=== PATIENT | female | born 1940 | race Caucasian/White ===

== ENCOUNTER → 2016-04-20 | Outpatient (CLI) | payer OTHER, MEDICARE ==
[~2016-04-20] MED LIST: ALPR0.25 PO; ASPCH81X PO; ATEN50TA8 PO; ATOR-22 PO; CALC0.2510 PO; EFF75 PO; GABA800T PO; TRAZ50TA35 PO
[2016-04-20 12:05] LABS: BASO % 0.2 %; BASO ABS # 0.01 K/uL (0-0.2); COMPLETE YES; EOS % 2.9 %; HEMATOCRIT 38.2 % (37-47); IG% 0.2 %; LYMPH % 32.4 %; LYMPH ABS # 1.34 K/uL (1.2-3.4); MEAN CORPUSCULAR HEMOGLOBIN 31.1 pg (25-34); MEAN CORPUSCULAR HGB CONC 33.8 g/dl (32-36); MEAN PLATELET VOLUME 12.6 fL (7.4-10.4); MONO % 12.6 %; NEUT % 51.7 %; PLATELET COUNT 155 K/uL (130-400); RED BLOOD COUNT 4.15 M/uL (4.2-5.4); WHITE BLOOD COUNT 4.14 K/uL (4.8-10.8)
[2016-04-20 12:14] LABS: ALT/SGPT 18 U/L (12-78); BLOOD UREA NITROGEN 13 mg/dl (7-18); BUN/CREATININE RATIO 9.6 (10-20); CARBON DIOXIDE 27 mmol/L (21-32); CHLORIDE 106 mmol/L (98-107); CHOLESTEROL 161 mg/dl (0-200); GLUCOSE 100 mg/dl (70-99); POTASSIUM 3.8 mmol/L (3.5-5.1); SODIUM 142 mmol/L (136-145); TRIGLYCERIDES 99 mg/dl (0-150); VERY LOW DENSITY LIPOPROT CALC 20 mg/dl
[2016-04-20 12:24] LABS: ALB/GLOB RATIO 1.2 (0.9-2); ALKALINE PHOSPHATASE 56 U/L (45-117); AST/SGOT 18 U/L (15-37); CHOLESTEROL/HDL RATIO 2.4; HDL CHOLESTEROL 66 mg/dl; LDL CHOLESTEROL CALCULATED 75 mg/dl; THYROID STIMULATING HORMONE 0.886 uIu/ml (0.300-4.500)
[2016-04-20 12:48] LABS: ESTIMATED AVERAGE GLUCOSE 111 mg/dl; HA1C FLAG Normal (Normal)
--- NOTE | 2016-04-24 10:21 | CODING QUERY MEDICAL NECESSITY ---
SUPPORTING DIAGNOSIS NEEDED Dr. Bustillos, A supporting diagnosis is required for the test/procedure performed on this patient in order for us to be reimbursed by the patient's insurance. Please provide a supporting diagnosis for the following test/procedure listed below next to the test name along with your signature. *If there is no additional diagnosis for this patient that would support the following test/procedure please document that below next to the test/procedure. Test(s)/Procedure(s) that require a supporting diagnosis: * ([id number]) VITAMIN D ASSAY DIAGNOSIS: * [id number] GLYCATED HEMOGLOBIN DIAGNOSIS: DATE OF SERVICE: 04/20/16 Provider Signature: Date: Thank you Vasile Metzger Health Information Management Once completed, please kindly fax back to [phone] For questions please call [phone]
== END | disposition home or self-care (01) ==
LOC: C.LABPBG 09:08
PROVIDERS: ATTEND Internal Medicine
DX: D69.6 Thrombocytopenia, unspecified (principal)

== ENCOUNTER → 2016-05-02 | Outpatient (CLI) | payer OTHER, MEDICARE | END | disposition home or self-care (01) | LOC: C.LABSPEC 15:28 | PROVIDERS: ATTEND Obstetrics & Gynecology | DX: N94.9 Unspecified condition associated with female genital organs and menstrual cycle (principal) ==

== ENCOUNTER → 2016-05-08 | Outpatient (CLI) | payer OTHER, MEDICARE | END | disposition home or self-care (01) | LOC: C.MAMM 11:08 | PROVIDERS: ATTEND Internal Medicine | DX: M85.89 Other specified disorders of bone density and structure, multiple sites (principal) ==

== ENCOUNTER → 2016-07-31 | Outpatient (CLI) | payer OTHER, MEDICARE | END | disposition home or self-care (01) | LOC: C.LAB 11:00 | PROVIDERS: ATTEND Physician Assistant Medical | DX: R19.7 Diarrhea, unspecified (principal) ==

== ENCOUNTER → 2016-10-23 | Outpatient (CLI) | payer OTHER, MEDICARE ==
[2016-10-23 13:12] LABS: BASO % 0.2 %; BASO ABS # 0.01 K/uL (0-0.2); COMPLETE YES; EOS % 6.3 %; HEMATOCRIT 39.8 % (37-47); IG% 0.2 %; LYMPH % 23.7 %; LYMPH ABS # 1.06 K/uL (1.2-3.4); MEAN CELL VOLUME 97.8 fL (80-100); MEAN CORPUSCULAR HEMOGLOBIN 30.7 pg (25-34); MEAN CORPUSCULAR HGB CONC 31.4 g/dl (32-36); MEAN PLATELET VOLUME 11.9 fL (7.4-10.4); MONO % 8.7 %; NEUT % 60.9 %; PLATELET COUNT 161 K/uL (130-400); RED BLOOD COUNT 4.07 M/uL (4.2-5.4); WHITE BLOOD COUNT 4.47 K/uL (4.8-10.8)
[2016-10-23 13:30] LABS: ALT/SGPT 33 U/L (12-78); AST/SGOT 22 U/L (15-37); BLOOD UREA NITROGEN 17 mg/dl (7-18); CALCIUM 9.3 mg/dl (8.5-10.1); CARBON DIOXIDE 29 mmol/L (21-32); CHLORIDE 108 mmol/L (98-107); GLUCOSE 89 mg/dl (70-99); POTASSIUM 4.1 mmol/L (3.5-5.1); SODIUM 141 mmol/L (136-145)
[2016-10-23 13:38] LABS: ESTIMATED AVERAGE GLUCOSE 111 mg/dl; HA1C FLAG Normal (Normal)
[2016-10-23 13:41] LABS: ALB/GLOB RATIO 1.1 (0.9-2); ALKALINE PHOSPHATASE 63 U/L (45-117); CHOLESTEROL 192 mg/dl (0-200); CHOLESTEROL/HDL RATIO 3.1; HDL CHOLESTEROL 62 mg/dl; LDL CHOLESTEROL CALCULATED 108 mg/dl; TRIGLYCERIDES 109 mg/dl (0-150); VERY LOW DENSITY LIPOPROT CALC 22 mg/dl
--- NOTE | 2016-11-02 17:30 | CODING QUERY MEDICAL NECESSITY ---
SUPPORTING DIAGNOSIS NEEDED A supporting diagnosis is required for the test/procedure performed on this patient in order for us to be reimbursed by the patient's insurance. Please provide a supporting diagnosis for the following test/procedure listed below next to the test name along with your signature. *If there is no additional diagnosis for this patient that would support the following test/procedure please document that below next to the test/procedure. Test(s)/Procedure(s) that require a supporting diagnosis: * VITAMIN D, 25- HYDROXY DIAGNOSIS: * HEMOGLOBIN A1C DIAGNOSIS: Provider Signature: Date: Thank you Simona Ma [facility] Information Management Once completed, please kindly fax back to [phone] For questions please call [phone]
== END | disposition home or self-care (01) ==
LOC: C.LABPBG 08:34
PROVIDERS: ATTEND Internal Medicine
DX: D69.6 Thrombocytopenia, unspecified (principal); M85.80 Other specified disorders of bone density and structure, unspecified site; R73.01 Impaired fasting glucose

== ENCOUNTER → 2016-11-07 | Outpatient (CLI) | payer OTHER, MEDICARE ==
--- NOTE | 2016-11-07 12:05 | DIAGNOSTIC IMAGING REPORT ---
LUMBAR SPINE W/O CONTRAST CLINICAL HISTORY: 76 years-old Female with R20.2 Leg [id number]. Chronic low back pain and left lower extremity weakness. No trauma. COMPARISON: CT abdomen and pelvis 12/29/2014 TECHNIQUE: Multiplanar, multi sequence MRI of the lumbar spine was performed without intravenous contrast. FINDINGS: The large edzxf-um-sudj cheese weigher images demonstrate no gross appear mildly. There is convex right curvature of the mid lumbar spine of approximately 8 degrees. Signal in the cord is within normal limits. Conus medullaris terminates at L1. The axial images are moderately motion degraded. There is no focal bone marrow edema, fracture or marrow replacing process identified. There is mild intervertebral disc space narrowing with posterior disc bulging and facet arthropathy at the T9-T10, T10-T11 and T11-T12 levels without high-grade central canal or foraminal narrowing. T12-L1: No central canal or neural foraminal stenosis. L1-L2: Mild intervertebral disc space narrowing and facet arthropathy with broad-based posterior disc bulge. No central canal or foraminal narrowing. L2-L3: Mild to moderate intervertebral disc space narrowing with mild facet arthropathy and ligamentum flavum redundancy. Broad-based posterior disc bulge favoring the left lateral recess and left foramen flattens the ventral thecal sac without significant central canal narrowing. There is mild left foraminal stenosis. Right foramen is patent. L3-L4: Moderate intervertebral disc space narrowing with posterior spondylitic spurring, moderate facet arthropathy and ligamentum flavum redundancy. Circumferential annular disc bulge flattens the ventral thecal sac without significant central canal narrowing. There is mild inferior bilateral foraminal stenosis. L4-L5: Moderate intervertebral disc space narrowing with circumferential annular disc bulge and posterior annular fissure. Moderate facet arthropathy with small facet effusions and ligamentum flavum redundancy. There is flattening of the ventral thecal sac with mild inferior left foraminal narrowing. Central canal and right foramen are generally patent. L5-S1: Moderate intervertebral disc space narrowing with posterior spondylitic spurring and broad-based posterior disc bulge. Moderate facet arthropathy with ligamentum flavum redundancy. There is moderate right and mild left foraminal stenosis. Central canal is generally patent. IMPRESSION: 1. No acute fracture, subluxation or focal bone marrow edema. 2. Convex right curvature of the mid lumbar spine, 8 degrees. 3. Mild to moderate intervertebral disc space narrowing and moderate facet arthropathy throughout the lumbar spine as above without high-grade central canal or foraminal stenosis. 4. Annular disc bulging is most pronounced at the L2-L3, L3-L4 and L4-L5 levels as detailed above. The above report was generated using voice recognition software. It may contain grammatical, syntax or spelling errors. Electronically signed by: Ja Rivas M.D. 11/07/2016 12:03 PM Dictated Date/Time: 11/07/2016 11:55 AM
== END | disposition home or self-care (01) ==
LOC: C.MRIBC 07:41
PROVIDERS: ATTEND Internal Medicine
DX: R20.2 Paresthesia of skin (principal); M51.26 Other intervertebral disc displacement, lumbar region

== ENCOUNTER → 2016-12-05 | Outpatient (CLI) | payer OTHER, MEDICARE | END | disposition home or self-care (01) | LOC: C.PAPS 14:10 | PROVIDERS: ATTEND Obstetrics & Gynecology | DX: Z01.419 Encounter for gynecological examination (general) (routine) without abnormal findings (principal) ==

== ENCOUNTER → 2017-02-04 | Outpatient (CLI) | payer OTHER, MEDICARE ==
--- NOTE | 2017-02-04 15:19 | MAMMOGRAPHY REPORT ---
BILATERAL DIGITAL SCREENING MAMMOGRAM WITH CAD: 02/04/2017 CLINICAL HISTORY: Routine screening. Patient has no complaints. TECHNIQUE: Bilateral CC and MLO views were obtained. Current study was also evaluated with a Compute r Aided Detection (CAD) system. COMPARISON: Comparison is made to exams dated: 02/02/2016 mammogram, 01/31/2015 mammogram, 01/25/2014 mammogram, 01/22/2013 mammogram, 01/22/2012 mammogram, and 01/19/2011 mammogram - [facility]. BREAST COMPOSITION: There are scattered areas of fibroglandular density in both breasts. FINDINGS: There are a few benign rim calcifications and mild vascular calcifications in the breasts. Stable nodular asymmetry in the posterior right breast along the posterior nipple line on the CC vie w appears very similar to all available prior mammograms dating back to at least 2009, therefore like ly benign. No new suspicious mass, architectural distortion or cluster of microcalcifications is see n. IMPRESSION: ACR BI-RADS CATEGORY 1: NEGATIVE There is no mammographic evidence of malignancy. A 1 year screening mammogram is recommended. The pa tient will receive written notification of the results. Approximately 10% of breast cancers are not detected with mammography. A negative mammographic report should not delay biopsy if a clinically suggestive mass is present. Amina Syed M.D. ay/:02/04/2017 13:49:49 Plug Maker: Yanira LYONS(Mick)(Zay)(BD), [facility] letter sent: Normal 1/2 BI-RADS Code: ACR BI-RADS Category 1: Negative
== END | disposition home or self-care (01) ==
LOC: C.MAMM 09:05
PROVIDERS: ATTEND Obstetrics & Gynecology
DX: Z12.31 Encounter for screening mammogram for malignant neoplasm of breast (principal)

== ENCOUNTER → 2017-02-12 | Day surgery (SDC) | payer OTHER, MEDICARE ==
[~2017-02-12] VITALS: Ht 160 cm; Wt 62.0 kg
[2017-02-12 08:28] VITALS: BP 123/75; PULSE 62; TEMP 36.4; O2SAT 99; Ht 160 cm; Wt 62.0 kg
[2017-02-12 11:56] VITALS: BP 119/66; PULSE 58; TEMP 36.6
--- NOTE | 2017-02-19 10:35 | Procedure Note ---
Breath Hydrogen Test Interpretation Assessment: No evidence of Small Intestinal Bacterial overgrowth based on this Lactulose breath test. Plan: Followup with ordering provider for further recommendations.
== END | disposition home or self-care (01) ==
LOC: C.MTU 08:11
PROVIDERS: ATTEND Internal Medicine
DX: K58.9 Irritable bowel syndrome, unspecified (principal)

== ENCOUNTER → 2017-03-05 | Outpatient (CLI) | payer OTHER, MEDICARE ==
[~2017-03-05] MED LIST changes: +ATEN-173 PO; +CYAN100020 PO; +DLCSR120 PO; +GABA-1220 PO; +METO-478 PO; +MULTCAP33
--- NOTE | 2017-03-05 11:49 | DIAGNOSTIC IMAGING REPORT ---
R SHOULDER MIN 2 VIEWS ROUTINE CLINICAL HISTORY: Right shoulder pain. Decreased range of motion. COMPARISON: Right shoulder radiographs December 14, 2010. FINDINGS: Alignment of the right shoulder is anatomic. There is extensive subacromial spurring. Spurs measure up to 1.2 cm. Irregularity of the greater tuberosity is noted at the insertion of the rotator cuff. There is moderate arthritis of the acromioclavicular joint as well as mild to moderate arthritis of the right glenohumeral joint. IMPRESSION: 1. No acute fracture or dislocation of the right shoulder. 2. Moderate osteoarthritis of the right acromioclavicular joint with extensive subacromial spurring. 3. Mild to moderate osteoarthritis of the right glenohumeral joint. Electronically signed by: Morris Qureshi M.D. 03/05/2017 11:48 AM Dictated Date/Time: 03/05/2017 11:46 AM
== END | disposition home or self-care (01) ==
LOC: C.RAD 11:23
PROVIDERS: ATTEND Physician Assistant
DX: M19.011 Primary osteoarthritis, right shoulder (principal)

== ENCOUNTER → 2017-04-24 | Outpatient (CLI) | payer OTHER, MEDICARE ==
[~2017-04-24] MED LIST changes: -ATEN-173 PO; -CYAN100020 PO; -DLCSR120 PO; -GABA-1220 PO; -METO-478 PO; -MULTCAP33
[2017-04-24 12:48] LABS: BASO % 0.5 %; BASO ABS # 0.02 K/uL (0-0.2); EOS % 5.1 %; EOS ABS # 0.22 K/uL (0-0.5); HEMATOCRIT 38.5 % (37-47); HEMOGLOBIN 12.6 g/dL (12.0-16.0); IG# 0.01 K/uL (0.00-0.02); LYMPH % 26.7 %; LYMPH ABS # 1.16 K/uL (1.2-3.4); MEAN CELL VOLUME 95.8 fL (80-100); MEAN CORPUSCULAR HEMOGLOBIN 31.3 pg (25-34); MEAN CORPUSCULAR HGB CONC 32.7 g/dl (32-36); MEAN PLATELET VOLUME 12.1 fL (7.4-10.4); MONO % 10.4 %; MONO ABS # 0.45 K/uL (0.11-0.59); NEUT % 57.1 %; NEUT ABS # 2.48 K/uL (1.4-6.5); PLATELET COUNT 155 K/uL (130-400); RED CELL DISTRIBUTION WIDTH CV 13.5 % (11.5-14.5); RED CELL DISTRIBUTION WIDTH SD 47.8 fL (36.4-46.3); WHITE BLOOD COUNT 4.34 K/uL (4.8-10.8)
[2017-04-24 13:22] LABS: BLOOD UREA NITROGEN 13 mg/dl (7-18); CREATININE 1.23 mg/dl (0.60-1.20); GLUCOSE 101 mg/dl (70-99)
[2017-04-24 13:23] LABS: ALBUMIN 4.1 gm/dl (3.4-5.0); ALKALINE PHOSPHATASE 53 U/L (45-117); ALT/SGPT 23 U/L (12-78); AST/SGOT 21 U/L (15-37); CALCIUM 9.3 mg/dl (8.5-10.1); CARBON DIOXIDE 26 mmol/L (21-32); POTASSIUM 4.2 mmol/L (3.5-5.1); SODIUM 138 mmol/L (136-145); TOTAL PROTEIN 7.6 gm/dl (6.4-8.2)
[2017-04-24 13:31] LABS: HEMOGLOBIN A1C 5.5 % (4.5-5.6)
[2017-04-24 13:33] LABS: CHOLESTEROL 193 mg/dl (0-200); LDL CHOLESTEROL CALCULATED 111 mg/dl
--- NOTE | 2017-05-03 07:26 | CODING QUERY MEDICAL NECESSITY ---
SUPPORTING DIAGNOSIS NEEDED A supporting diagnosis is required for the test/procedure performed on this patient in order for us to be reimbursed by the patient's insurance. Please provide a supporting diagnosis for the following test/procedure listed below next to the test name along with your signature. *If there is no additional diagnosis for this patient that would support the following test/procedure please document that below next to the test/procedure. Test(s)/Procedure(s) that require a supporting diagnosis: DOS: 04/24/17 * VITAMIN D, 25-HYDROXY DIAGNOSIS: Provider Signature: Date: Thank you Simona Ma [email or web address] Information Management Once completed, please kindly fax back to [phone] For questions please call [phone]
== END | disposition home or self-care (01) ==
LOC: C.LABPBG 09:28
PROVIDERS: ATTEND Internal Medicine
DX: R53.82 Chronic fatigue, unspecified (principal); D69.6 Thrombocytopenia, unspecified; E53.8 Deficiency of other specified B group vitamins; I12.9 Hypertensive chronic kidney disease with stage 1 through stage 4 chronic kidney disease, or unspecified chronic kidney disease; N18.2 Chronic kidney disease, stage 2 (mild); R73.01 Impaired fasting glucose

== ENCOUNTER 2017-07-05 17:27 | Inpatient (IN) | payer OTHER, MEDICARE ==
[~2017-07-05] VITALS: Ht 162.6 cm; Wt 58.6 kg
[2017-07-05] MEDS ORDERED: SODIUM CHLORIDE 0.9% 1000ML 1,000 ML IV STA (17:56)
--- NOTE | 2017-07-05 18:01 | EMERGENCY ROOM VISIT NOTE ---
History First contact with patient: 17:54 Chief Complaint: PALPITATIONS Stated Complaint: HEART PULPATATION PULSE 120 History of Present Illness The patient is a 76 year old female who presents to the Emergency Room with complaints of palpitations and chest pain. The patient also notes the following associated symptoms, pain radiating to the jaw and sweaty. This started 2 hrs ago and is improving. The patient has tried xanax for relieving factors. She noted her pulse was 135. No prior heart problems Pt denies LOC, headache, fevers, chills, visual changes, neck pain, breathing difficulties, nausea, vomiting, abdominal pain, back pain, melena, hematochezia, urinary symptoms, numbness, weakness, lymphadenopathy, rash, or other complaints. Review of Systems See HPI for pertinent positives and negatives. A total of ten systems were reviewed and were otherwise negative. Past Medical/Surgical History Medical Problems: (1) Appendectomy (2) Benign hypertension (3) Bowel obstruction (4) Hemorrhoid (5) History of - hysterectomy (6) IBS (irritable bowel syndrome) (7) Irritable Bowel Syndrome (8) Localized, secondary osteoarthritis of the shoulder region (9) Oophorectomy (10) Pneumonia Surgical Problems: (1) H/O: hysterectomy Family History FH: neurologic disorder FHx: anemia Heart disease Hypertension Kidney disease Kidney stones Lung disease Social History Smoking Status: Never Smoker Alcohol Use: none Drug Use: none Marital Status: Housing Status: lives alone Occupation Status: retired Current/Historical Medications Scheduled Aspirin (Aspirin Chewable), 81 MG PO QAM Atenolol (Tenormin), 25 MG PO DAILY Atorvastatin (Lipitor), 20 MG PO QPM Calcitriol (Rocaltrol Cap), 0.25 MCG PO QAM Cyanocobalamin (Vitamin B12), 1 TAB PO DAILY Multiple Vitamins W/ Minerals (Preservision Areds), 1 CAP DAILY Trazodone Hcl (Trazodone), 50 MG PO HS Venlafaxine Hcl (Effexor), 2 TAB PO QAM Scheduled PRN Alprazolam (Xanax), 1 TAB PO Q6 PRN for Anxiety Gabapentin (Neurontin), 400 MG PO HS PRN for Pain Physical Exam Vital Signs Date Time Temp Pulse Resp B/P (MAP) Pulse Ox O2 Delivery O2 Flow Rate FiO2 07/05/17 19:23 65 07/05/17 17:39 36.7 115 20 147/81 100 Room Air Physical Exam GENERAL: Awake, alert, mildly anxious-appearing, in no distress HENT: Normocephalic, atraumatic. Oropharynx unremarkable. EYES: Normal conjunctiva. Sclera non-icteric. NECK: Supple. No nuchal rigidity. FROM. No masses. RESPIRATORY: Clear to auscultation. No wheezes. No rales. Normal respiratory effort. CARDIAC: Normal rate. Normal rhythm. No murmurs. No rubs. Extremities warm and well perfused. Pulses equal. No JVD. GI: Soft, non-distended. No tenderness to palpation. No rebound or guarding. No masses. RECTAL: Deferred. MUSCULOSKELETAL: Atraumatic. Chest examination reveals no tenderness. The back is symmetrical on inspection without obvious abnormality. There is no CVA tenderness to palpation. No joint edema. LOWER EXTREMITIES: Calves are equal size bilaterally and non-tender. No edema. No discoloration. NEURO: Normal sensorium. No sensory or motor deficits noted. SKIN: No rash or jaundice noted. Medical Decision & Procedures ER Provider Diagnostic Interpretation: Chest x-ray. Findings: A chest x-ray was performed and revealed no pneumothorax , effusion, infiltrate, pulmonary edema, free air under the diaphragm, or wide mediastinum. Laboratory Results 07/05/17 18:10 Red Blood Count 4.08, Mean Corpuscular Volume 97.1, Mean Corpuscular Hemoglobin 32.4, Mean Corpuscular Hemoglobin Concent 33.3, Mean Platelet Volume 10.9, Neutrophils (%) (Auto) 69.8, Lymphocytes (%) (Auto) 18.0, Monocytes (%) (Auto) 10.7, Eosinophils (%) (Auto) 1.0, Basophils (%) (Auto) 0.0, Neutrophils # (Auto ) 5.88, Lymphocytes # (Auto) 1.51, Monocytes # (Auto) 0.90, Eosinophils # (Auto ) 0.08, Basophils # (Auto) 0.00 07/05/17 18:10 Test 07/05/17 18:10 07/05/17 19:30 White Blood Count 8.41 K/uL (4.8-10.8) Red Blood Count 4.08 M/uL (4.2-5.4) Hemoglobin 13.2 g/dL (12.0-16.0) Hematocrit 39.6 % (37-47) Mean Corpuscular Volume 97.1 fL (80-100) Mean Corpuscular Hemoglobin 32.4 pg (25-34) Mean Corpuscular Hemoglobin Concent 33.3 g/dl (32-36) Platelet Count 161 K/uL (130-400) Mean Platelet Volume 10.9 fL (7.4-10.4) Neutrophils (%) (Auto) 69.8 % Lymphocytes (%) (Auto) 18.0 % Monocytes (%) (Auto) 10.7 % Eosinophils (%) (Auto) 1.0 % Basophils (%) (Auto) 0.0 % Neutrophils # (Auto) 5.88 K/uL (1.4-6.5) Lymphocytes # (Auto) 1.51 K/uL (1.2-3.4) Monocytes # (Auto) 0.90 K/uL (0.11-0.59) Eosinophils # (Auto) 0.08 K/uL (0-0.5) Basophils # (Auto) 0.00 K/uL (0-0.2) RDW Standard Deviation 49.4 fL (36.4-46.3) RDW Coefficient of Variation 13.8 % (11.5-14.5) Immature Granulocyte % (Auto) 0.5 % Immature Granulocyte # (Auto) 0.04 K/uL (0.00-0.02) Prothrombin Time 9.8 SECONDS (9.0-12.0) Prothromb Time International Ratio 0.9 (0.9-1.1) Activated Partial Thromboplast Time 22.3 SECONDS (21.0-31.0) Partial Thromboplastin Ratio 0.9 Anion Gap 5.0 mmol/L (3-11) Est Creatinine Clear Calc Drug Dose 32.3 ml/min Estimated GFR () 49.7 Estimated GFR (Non- 42.9 BUN/Creatinine Ratio 20.7 (10-20) Calcium Level 9.5 mg/dl (8.5-10.1) Magnesium Level 2.2 mg/dl (1.8-2.4) Total Bilirubin 0.2 mg/dl (0.2-1) Direct Bilirubin < 0.1 mg/dl (0-0.2) Aspartate Amino Transf (AST/SGOT) 155 U/L (15-37) Alanine Aminotransferase (ALT/SGPT) 737 U/L (12-78) Alkaline Phosphatase 88 U/L (45-117) Total Creatine Kinase 39 U/L (26-192) Creatine Kinase MB 0.8 ng/ml (0.5-3.6) Creatine Kinase MB Ratio 2.1 (0-3.0) Troponin I < 0.015 ng/ml (0-0.045) Total Protein 8.1 gm/dl (6.4-8.2) Albumin 4.1 gm/dl (3.4-5.0) Thyroid Stimulating Hormone (TSH) 3.360 uIu/ml (0.300-4.500) Medications Administered Medications (Trade) Dose Ordered Sig/[place] Route Start Time Stop Time Status Last Admin Dose Admin Sodium Chloride 1,000 ml @ 125 mls/hr Q8H STAT IV 07/05/17 17:56 07/06/17 01:55 07/05/17 18:33 125 MLS/HR Nitroglycerin (Nitroglycerin 2% Oint) 0.5 inch NOW ONCE EXT 07/05/17 18:15 07/05/17 18:16 DC 07/05/17 18:32 0.5 INCH ECG Per My Interpretation Indication: palpitations Rate (beats per minute): 78 Rhythm: sinus rhythm Findings: nonspecific-ST abn, PAC, no acute ischemic change Change: no significant change (from 2014) Medical Decision Triage Nursing notes reviewed. The patient's presentation and history were concerning for palpitations and chest pain. Etiologies such as ectopy, cardiac dysrhythmia, ACS, electrolyte abnormality, thyroid dysfunction, pulmonary embolism, infection, gastrointestinal, as well as others were entertained. Patient was evaluated. Her ECG did not show any acute ischemic change. Her palpitations are better. She noted her chest discomfort was improved since her heart rate has slowed. She was given Nitropaste. Chest imaging was unremarkable. The patient had unremarkable CBC and chemistry panel. Her LFTs were elevated. This was new. Cardiac markers 1 negative. Given the patient's chest discomfort and abnormal LFTs it was felt that further management was necessary in the hospital. Consultation was made with the [facility] service. Patient was evaluated for further management. Medication Reconcilliation Current Medication List: was personally reviewed by me Blood Pressure Screening Patient's blood pressure: Elevated blood pressure (Referred to hospitalist) Impression Primary Impression: Substernal chest pain Additional Impressions: Palpitations Elevated LFTs Departure Information Dispostion Being Evaluated By Hospitalist Referrals Loyd Butsillos M.D. (PCP) Patient Instructions My [facility] Problem Qualifiers
[2017-07-05] MEDS ORDERED: NITROGLYCERIN 2% OINTMENT 30GM TUBE EXT ONE (18:15)
--- NOTE | 2017-07-05 18:21 | DIAGNOSTIC IMAGING REPORT ---
CHEST ONE VIEW PORTABLE HISTORY: 76 years-old Female EVALUATE WEAKNESS acute weakness COMPARISON: Chest radiograph 12/31/2014 TECHNIQUE: Portable AP view of the chest FINDINGS: Cardiac silhouette is mildly enlarged. Minimal subsegmental bibasilar atelectasis redemonstrated without pneumothorax, pleural effusion, focal airspace consolidation or overt pulmonary edema. Degenerative changes of the shoulders and spine. The bones appear grossly intact. IMPRESSION: No acute process. The above report was generated using voice recognition software. It may contain grammatical, syntax or spelling errors. Electronically signed by: Ja Rivas M.D. 07/05/2017 6:20 PM Dictated Date/Time: 07/05/2017 6:18 PM
[2017-07-05 18:22] LABS: EOS ABS # 0.08 K/uL (0-0.5); HEMATOCRIT 39.6 % (37-47); HEMOGLOBIN 13.2 g/dL (12.0-16.0); IG# 0.04 K/uL (0.00-0.02); LYMPH ABS # 1.51 K/uL (1.2-3.4); MEAN CELL VOLUME 97.1 fL (80-100); MEAN CORPUSCULAR HEMOGLOBIN 32.4 pg (25-34); MEAN CORPUSCULAR HGB CONC 33.3 g/dl (32-36); MEAN PLATELET VOLUME 10.9 fL (7.4-10.4); MONO % 10.7 %; NEUT % 69.8 %; NEUT ABS # 5.88 K/uL (1.4-6.5); PLATELET COUNT 161 K/uL (130-400); RED CELL DISTRIBUTION WIDTH CV 13.8 % (11.5-14.5); RED CELL DISTRIBUTION WIDTH SD 49.4 fL (36.4-46.3); WHITE BLOOD COUNT 8.41 K/uL (4.8-10.8)
[2017-07-05 18:42] LABS: BLOOD UREA NITROGEN 25 mg/dl (7-18); CREATININE 1.23 mg/dl (0.60-1.20); GLUCOSE 104 mg/dl (70-99)
[2017-07-05 18:43] LABS: ALBUMIN 4.1 gm/dl (3.4-5.0); ALT/SGPT 737 U/L (12-78); AST/SGOT 155 U/L (15-37); CALCIUM 9.5 mg/dl (8.5-10.1); CARBON DIOXIDE 28 mmol/L (21-32); INR 0.9 (0.9-1.1); POTASSIUM 3.9 mmol/L (3.5-5.1); PTT PATIENT 22.3 SECONDS (21.0-31.0); SODIUM 140 mmol/L (136-145)
[2017-07-05 18:53] LABS: ALKALINE PHOSPHATASE 88 U/L (45-117); CKMB 0.8 ng/ml (0.5-3.6); TOTAL PROTEIN 8.1 gm/dl (6.4-8.2)
[2017-07-05] MEDS ORDERED: ATEN-173 PO (19:25)
[2017-07-05] MEDS ORDERED: GABA-1220 PO (19:28)
[2017-07-05] MEDS ORDERED: CYAN100020 PO (19:29)
[2017-07-05] MEDS ORDERED: MULTCAP33 (19:31)
--- NOTE | 2017-07-05 20:31 | DIAGNOSTIC IMAGING REPORT ---
ABDOMEN AND PELVIS CT WITHOUT CONTRAST CT DOSE: 272.41 mGy.cm HISTORY: Acute heart palpitations with abnormal liver function tests abnormal lft's TECHNIQUE: Multiaxial CT images of the abdomen and pelvis were performed without contrast. A dose lowering technique was utilized adhering to the principles of ALARA. COMPARISON STUDY: CT abdomen and pelvis 12/29/2014. FINDINGS: Mild bibasilar subsegmental atelectasis/scarring. There is no pneumatosis or pneumoperitoneum identified. The mentioned appear cardiac chambers are mildly enlarged. Evaluation of the solid abdominal organs is limited without the use of IV contrast. The liver, gallbladder, pancreas and adrenal glands are within normal limits. Linear calcifications are seen throughout the spleen. 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 Mild cortical scarring of the inferior pole left kidney. No renal calculi or obstructive uropathy. Ureters and bladder are unremarkable. Prior hysterectomy. No adnexal mass lesions. Phleboliths of the pelvis are noted. Mild tortuosity and atherosclerosis of the aorta without aneurysm. No bulky adenopathy. No bowel obstruction or focal bowel wall thickening. Colonic diverticulosis without CT evidence of acute diverticulitis. Moderate stool volume throughout the colon. Appendix is not definitively seen and may be surgically absent. Soft tissues are unremarkable. The bones appear mildly demineralized. Dextroscoliosis of the mid lumbar spine. Bones appear intact. IMPRESSION: 1. No acute intra-abdominal or intrapelvic abnormality identified. 2. Moderate stool volume throughout the colon suggests constipation. 3. Colonic diverticulosis without diverticulitis. 4. 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 5. Prior hysterectomy. Electronically signed by: Ja Rivas M.D. 07/05/2017 8:30 PM Dictated Date/Time: 07/05/2017 8:20 PM
--- NOTE | 2017-07-05 21:10 | History and Physical ---
History & Physical Date & Time of Service: July 05, 2017 at 21:10 Chief Complaint: Heart Pulpatation Pulse 120 Primary Care Physician: Loyd Bustillos M.D. History of Present Illness Source: patient, spouse, hospital records The patient is a 76-year-old female who presents to the emergency department with complaint of palpitations, with heart rate up to 135, left-sided chest pain radiating to her jaw, and sweats that began about 2 hours prior to arrival. She does report having had palpitations in the past, but has not had associated chest pain. She had no change in her routine activity pattern or eating pattern. She has not had any recent travels or sick exposures. She reports that her sleeping habits are the same as usual. Past Medical/Surgical History Medical Problems: (1) Abdominal pain (2) Appendectomy (3) Benign hypertension (4) Bowel obstruction (5) Diverticula of intestine (6) Diverticulitis (7) Hemorrhoid (8) History of - hysterectomy (9) IBS (irritable bowel syndrome) (10) Irritable Bowel Syndrome (11) Localized, secondary osteoarthritis of the shoulder region (12) Oophorectomy (13) Pneumonia Surgical Problems: (1) H/O: hysterectomy Family History FH: neurologic disorder FHx: anemia Heart disease Hypertension Kidney disease Kidney stones Lung disease Social History Smoking Status: Never Smoker Smokeless Tobacco Use: No Alcohol Use: none Drug Use: none Marital Status: Housing status: lives alone Occupational Status: retired Immunizations History of Influenza Vaccine: N/A History of Tetanus Vaccine?: No History of Pneumococcal: Yes History of Hepatitis B Vaccine: No Allergies Coded Allergies: Penicillins (Verified Allergy, Severe, RASH, 09/30/15) PT'S FATHER HAD ANAPHYLACTIC RXN Gluten Flour (Verified Allergy, Intermediate, GI SYMPTOMS, 09/30/15) Lactose Intolerance (GI) (Verified Allergy, Intermediate, GI SYMPTOMS, ) Sulfa Antibiotics (Verified Allergy, Intermediate, RASH, 09/30/15) Sulfamethoxazole (Verified Allergy, Intermediate, RASH, 09/20/15) Home Medications Scheduled Aspirin (Aspirin Chewable), 81 MG PO QAM Atenolol (Tenormin), 25 MG PO DAILY Atorvastatin (Lipitor), 20 MG PO QPM Calcitriol (Rocaltrol Cap), 0.25 MCG PO QAM Cyanocobalamin (Vitamin B12), 1 TAB PO DAILY Multiple Vitamins W/ Minerals (Preservision Areds), 1 CAP DAILY Trazodone Hcl (Trazodone), 50 MG PO HS Venlafaxine Hcl (Effexor), 2 TAB PO QAM Scheduled PRN Alprazolam (Xanax), 1 TAB PO Q6 PRN for Anxiety Gabapentin (Neurontin), 400 MG PO HS PRN for Pain Review of Systems The patient denies shortness of breath, dyspnea on exertion, cough, lower extremity swelling, sore throat, fevers, chills, weight change, fatigue, nausea, vomiting, diarrhea , constipation, abdominal pain, pelvic pain, blood in urine or stool, dysuria, urinary frequency or urgency, lightheadedness , dizziness, headache, memory loss, loss of consciousness, rash, abnormal bruising or bleeding, imbalance, focal or generalized weakness, numbness or tingling in arms or legs, generalized arthralgias or myalgias, back pain, or night sweats. The review of systems is otherwise negative other than for that already noted above, and at least 10 systems have been reviewed. Physical Exam Vital Signs Date Time Temp Pulse Resp B/P (MAP) Pulse Ox O2 Delivery O2 Flow Rate FiO2 07/05/17 21:02 Room Air 07/05/17 19:38 Room Air 07/05/17 19:30 62 18 96 Room Air 07/05/17 19:23 65 07/05/17 19:17 166/88 07/05/17 19:00 69 17 97 Room Air 07/05/17 17:39 36.7 115 20 147/81 100 Room Air The patient is awake, alert and oriented 3, well developed and well nourished, normocephalic and atraumatic, lying in bed and in no acute distress. HEENT--PERRL, EOMI, mucous membranes and oropharynx dry. Neck--supple. No JVD. No bruits. Thyroid normal, trachea midline, no adenopathy. Heart--normal S1 and S2. No murmurs, rubs or gallops. Lungs--clear bilaterally, no respiratory distress, no accessory muscle use. Abdomen--normal bowel sounds and soft. Nontender. Nondistended, no hernias or masses, no organomegaly. Extremities--no cyanosis or clubbing. No edema. There are good distal pulses b/ l. Dermatologic--normal skin turgor, normal color, no abnormal lymph nodes, no rash. Neurologic--cranial nerves II through XII grossly intact. Rheumatologic--normal range of motion. Psychiatric--normal affect. Diagnostics Laboratory Results Results Past 24 Hours Test 07/05/17 18:10 07/05/17 19:34 07/05/17 20:19 07/05/17 21:06 Range/Units White Blood Count 8.41 4.8-10.8 K/uL Red Blood Count 4.08 4.2-5.4 M/uL Hemoglobin 13.2 12.0-16.0 g/dL Hematocrit 39.6 37-47 % Mean Corpuscular Volume 97.1 80-100 fL Mean Corpuscular Hemoglobin 32.4 25-34 pg Mean Corpuscular Hemoglobin Concent 33.3 32-36 g/dl Platelet Count 161 130-400 K/uL Mean Platelet Volume 10.9 7.4-10.4 fL Neutrophils (%) (Auto) 69.8 % Lymphocytes (%) (Auto) 18.0 % Monocytes (%) (Auto) 10.7 % Eosinophils (%) (Auto) 1.0 % Basophils (%) (Auto) 0.0 % Neutrophils # (Auto) 5.88 1.4-6.5 K/uL Lymphocytes # (Auto) 1.51 1.2-3.4 K/uL Monocytes # (Auto) 0.90 0.11-0.59 K/uL Eosinophils # (Auto) 0.08 0-0.5 K/uL Basophils # (Auto) 0.00 0-0.2 K/uL RDW Standard Deviation 49.4 36.4-46.3 fL RDW Coefficient of Variation 13.8 11.5-14.5 % Immature Granulocyte % (Auto) 0.5 % Immature Granulocyte # (Auto) 0.04 0.00-0.02 K/uL Prothrombin Time 9.8 9.0-12.0 SECONDS Prothromb Time International Ratio 0.9 0.9-1.1 Activated Partial Thromboplast Time 22.3 21.0-31.0 SECONDS Partial Thromboplastin Ratio 0.9 Sodium Level 140 136-145 mmol/L Potassium Level 3.9 3.5-5.1 mmol/L Chloride Level 107 98-107 mmol/L Carbon Dioxide Level 28 21-32 mmol/L Anion Gap 5.0 3-11 mmol/L Blood Urea Nitrogen 25 7-18 mg/dl Creatinine 1.23 0.60-1.20 mg/dl Est Creatinine Clear Calc Drug Dose 32.3 ml/min Estimated GFR () 49.7 Estimated GFR (Non- 42.9 BUN/Creatinine Ratio 20.7 10-20 Random Glucose 104 70-99 mg/dl Calcium Level 9.5 8.5-10.1 mg/dl Magnesium Level 2.2 1.8-2.4 mg/dl Total Bilirubin 0.2 0.2-1 mg/dl Direct Bilirubin < 0.1 0-0.2 mg/dl Aspartate Amino Transf (AST/SGOT) 155 15-37 U/L Alanine Aminotransferase (ALT/SGPT) 737 12-78 U/L Alkaline Phosphatase 88 45-117 U/L Total Creatine Kinase 39 26-192 U/L Creatine Kinase MB 0.8 0.5-3.6 ng/ml Creatine Kinase MB Ratio 2.1 0-3.0 Troponin I < 0.015 0-0.045 ng/ml Total Protein 8.1 6.4-8.2 gm/dl Albumin 4.1 3.4-5.0 gm/dl Thyroid Stimulating Hormone (TSH) 3.360 0.300-4.500 uIu/ml Acetaminophen Level < 2 10-30 ug/ml Urine Color YELLOW Urine Appearance CLEAR CLEAR Urine pH 8.0 4.5-7.5 Urine Specific Reading 1.016 1.000-1.030 Urine Protein NEG NEG Urine Glucose (UA) NEG NEG Urine Ketones NEG NEG Urine Occult Blood NEG NEG Urine Nitrite NEG NEG Urine Bilirubin NEG NEG Urine Urobilinogen NEG NEG Urine Leukocyte Esterase NEG NEG Diagnostic Radiology Patient Name: BLANCA SAEZ Unit Number: [id number] Dictated: 07/05/171817 Transcribed: 07/05/171817 SOFY Printed Date/Time: [~ rep prt dt]/[~ rep prt tm] [~ rep ct labl] - [~ rep ct ivnm] [facility] [place] [address] Dictated: 07/05/171817 Transcribed: 07/05/171817 B Printed Date/Time: [~ rep prt dt]/[~ rep prt tm] [~ rep ct labl] - [~ rep ct ivnm] CHEST ONE VIEW PORTABLE HISTORY: 76 years-old Female EVALUATE WEAKNESS acute weakness COMPARISON: Chest radiograph 12/31/2014 TECHNIQUE: Portable AP view of the chest FINDINGS: Cardiac silhouette is mildly enlarged. Minimal subsegmental bibasilar atelectasis redemonstrated without pneumothorax, pleural effusion, focal airspace consolidation or overt pulmonary edema. Degenerative changes of the shoulders and spine. The bones appear grossly intact. IMPRESSION: No acute process. The above report was generated using voice recognition software. It may contain grammatical, syntax or spelling errors. Electronically signed by: Ja Rivas M.D. 07/05/2017 6:20 PM Dictated Date/Time: 07/05/2017 6:18 PM The status of this report is Signed. Draft = Not yet reviewed or approved by Radiologist. Signed = Reviewed and approved by Radiologist. <AttendingPhy></AttendingPhy> <FamilyPhy>Loyd Bustillos M.D.</FamilyPhy> < PrimaryPhy>Loyd Bustillos M.D.</PrimaryPhy> <UnitNumber>[id number]</UnitNumber> <VisitNumber>[id number]</VisitNumber> <PatientName>BLANCA SAEZ</PatientName > <DateOfBirth>1940</DateOfBirth> <Location>[facility]</Location> <ServiceDate> 07/05/17</ServiceDate> <MNE>ESINDI</MNE> <OrderingPhy>Dave Sánchez MD</ OrderingPhy> <OrderingPhyMNE>f rep ord dr dobbs</OrderingPhyMNE> <DictatingPhyMNE> f rep dict dr dobbs</DictatingPhyMNE> <CCListMNE>f rep ct annae</CCListMNE> < AdmittingPhyMNE>f pt admit dr dobbs</AdmittingPhyMNE> <AttendingPhyMNE>f pt attend dr dobbs</AttendingPhyMNE> <ConsultingPhyMNE>f pt consult dr dobbs</ConsultingPhyMNE> <FamilyPhyMNE>f pt fam dr dobbs</FamilyPhyMNE> <OtherPhyMNE>f pt other dr dobbs</OtherPhyMNE> < PrimaryPhyMNE>f pt prim care dr dobbs</PrimaryPhyMNE> <ReferringPhyMNE>f pt referring dr dobbs</ReferringPhyMNE> Patient Name: BLANCA SAEZ Unit Number: [id number] Dictated: 07/05/172019 Transcribed: 07/05/172020 JRB Printed Date/Time: [~ rep prt dt]/[~ rep prt tm] [~ rep ct labl] - [~ rep ct ivnm] [facility] [place] [address] Dictated: 07/05/172019 Transcribed: 07/05/172020 JRB Printed Date/Time: [~ rep prt dt]/[~ rep prt tm] [~ rep ct labl] - [~ rep ct ivnm] ABDOMEN AND PELVIS CT WITHOUT CONTRAST CT DOSE: 272.41 mGy.cm HISTORY: Acute heart palpitations with abnormal liver function tests abnormal lft's TECHNIQUE: Multiaxial CT images of the abdomen and pelvis were performed without contrast. A dose lowering technique was utilized adhering to the principles of ALARA. COMPARISON STUDY: CT abdomen and pelvis 12/29/2014. FINDINGS: Mild bibasilar subsegmental atelectasis/scarring. There is no pneumatosis or pneumoperitoneum identified. The mentioned appear cardiac chambers are mildly enlarged. Evaluation of the solid abdominal organs is limited without the use of IV contrast. The liver, gallbladder, pancreas and adrenal glands are within normal limits. Linear calcifications are seen throughout the spleen. 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 Mild cortical scarring of the inferior pole left kidney. No renal calculi or obstructive uropathy. Ureters and bladder are unremarkable. Prior hysterectomy. No adnexal mass lesions. Phleboliths of the pelvis are noted. Mild tortuosity and atherosclerosis of the aorta without aneurysm. No bulky adenopathy. No bowel obstruction or focal bowel wall thickening. Colonic diverticulosis without CT evidence of acute diverticulitis. Moderate stool volume throughout the colon. Appendix is not definitively seen and may be surgically absent. Soft tissues are unremarkable. The bones appear mildly demineralized. Dextroscoliosis of the mid lumbar spine. Bones appear intact. IMPRESSION: 1. No acute intra-abdominal or intrapelvic abnormality identified. 2. Moderate stool volume throughout the colon suggests constipation. 3. Colonic diverticulosis without diverticulitis. 4. 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 5. Prior hysterectomy. Electronically signed by: Ja Rivas M.D. 07/05/2017 8:30 PM Dictated Date/Time: 07/05/2017 8:20 PM The status of this report is Signed. Draft = Not yet reviewed or approved by Radiologist. Signed = Reviewed and approved by Radiologist. <AttendingPhy></AttendingPhy> <FamilyPhy>Loyd Bustillos M.D.</FamilyPhy> < PrimaryPhy>Loyd Bustillos M.D.</PrimaryPhy> <UnitNumber>[id number]</UnitNumber> <VisitNumber>[id number]</VisitNumber> <PatientName>BLANCA SAEZ</PatientName > <DateOfBirth>1940</DateOfBirth> <Location>[facility]</Location> <ServiceDate> 07/05/17</ServiceDate> <MNE>ESINDI</MNE> <OrderingPhy>Maximus Herrera M.D.< /OrderingPhy> <OrderingPhyMNE>f rep ord dr dobbs</OrderingPhyMNE> <DictatingPhyMNE >f rep dict dr dobbs</DictatingPhyMNE> <CCListMNE>f rep ct rinku</CCListMNE> < AdmittingPhyMNE>f pt admit dr dobbs</AdmittingPhyMNE> <AttendingPhyMNE>f pt attend dr dobbs</AttendingPhyMNE> <ConsultingPhyMNE>f pt consult dr dobbs</ConsultingPhyMNE> <FamilyPhyMNE>f pt fam dr dobbs</FamilyPhyMNE> <OtherPhyMNE>f pt other dr dobbs</OtherPhyMNE> < PrimaryPhyMNE>f pt prim care dr dobbs</PrimaryPhyMNE> <ReferringPhyMNE>f pt referring dr dobbs</ReferringPhyMNE> EKG BLANCA SAEZ ID:[id number] 05-JUL-2017 17:45:16 [facility] Sinus rhythm with Premature atrial complexes Nonspecific ST and T wave abnormality Abnormal ECG When compared with ECG of 29-DEC-2014 14:49, Premature atrial complexes are now Present 25mm/s 10mm/mV 150Hz 8.0 SP2 12SL 241 HD ANDREW: 12 Referred by: Unconfirmed Vent. rate 78 BPM VT interval 134 ms QRS duration 82 ms QT/QTc 350/399 ms P-R-T axes 61 17 14 1940 (76 yr) Female 66in 1lb Room: Loc:15 Information Security Analyst:ANNELISE CHING Impression Assessment and Plan Precordial chest pain with radiation to jaw/palpitations, tachycardia with heart rate up to 135/hypertension-- The patient will be admitted to telemetry for serial cardiac enzymes, serial EKG's, cardiac rhythm monitoring and a 2-D echocardiogram with Dopplers. The patient does appear mildly dehydrated, as a potential contributing cause. Place on normal saline plus KCl 20 mEq 100 mils per hour. Continue atenolol 25 mg p.o. every morning and aspirin 81 mg chewable p.o. every morning. Hyperlipidemia-- Continue atorvastatin 20 mg p.o. every evening. Check a hemoglobin A1c and fasting lipid panel. Vitamin B12 deficiency-- Takes 1 tablet daily unknown dosage, hold for now. Anxiety with depression/insomnia-- Continue venlafaxine 2 tablets every morning, and trazodone 50 mg every evening. Alprazolam-- 1 tablet p.o. every 6 hours as needed for anxiety Advanced Directives Existing Advance Directive: No Existing Living Will: No Existing Power of Policy Writer Typist: No Resuscitation Status VTE Prophylaxis Will order VTE Prophylaxis: Yes Social Service Consult None Apply
[2017-07-05] MEDS ORDERED: ALPRAZOLAM 0.25 MG TAB PO PRN (21:15)
[2017-07-05] MEDS ORDERED: ONDANSETRON 8MG OD TAB PO PRN (21:15)
[2017-07-05] MEDS ORDERED: NITROGLYCERIN 0.4 MG SL PER TAB CHARGE SL PRN (21:15)
[2017-07-05] MEDS ORDERED: ALPRAZOLAM 0.5 MG TAB ONE (21:39)
[2017-07-05 21:46] LABS: HEP C IGG 13 YRS+OLDER_RFLX NEG (NEG)
[2017-07-05 22:17] VITALS: BP 149/80; PULSE 58; TEMP 36.4; O2SAT 98; Ht 162.6 cm; Wt 58.6 kg
[2017-07-05 22:44] LABS: CKMB 1.1 ng/ml (0.5-3.6)
[2017-07-05 23:15] VITALS: BP 110/71; PULSE 98; TEMP 38.2; O2SAT 97
[2017-07-05 23:35] VITALS: BP 123/73; PULSE 52; TEMP 36.7; O2SAT 96
[2017-07-06] MEDS: NSS + 20MEQ KCL 1000ML 1,000 ML IV SCH ×2 (00:18→13:19)
[2017-07-06 03:52] VITALS: BP 138/77; PULSE 55; TEMP 36.7; O2SAT 98
[2017-07-06 05:35] LABS: BASO % 0.1 %; BASO ABS # 0.01 K/uL (0-0.2); EOS % 2.3 %; EOS ABS # 0.17 K/uL (0-0.5); HEMATOCRIT 37.5 % (37-47); HEMOGLOBIN 12.2 g/dL (12.0-16.0); IG# 0.03 K/uL (0.00-0.02); LYMPH % 23.8 %; LYMPH ABS # 1.79 K/uL (1.2-3.4); MEAN CELL VOLUME 96.6 fL (80-100); MEAN CORPUSCULAR HEMOGLOBIN 31.4 pg (25-34); MEAN CORPUSCULAR HGB CONC 32.5 g/dl (32-36); MEAN PLATELET VOLUME 10.8 fL (7.4-10.4); MONO % 8.9 %; MONO ABS # 0.67 K/uL (0.11-0.59); NEUT % 64.5 %; NEUT ABS # 4.85 K/uL (1.4-6.5); PLATELET COUNT 155 K/uL (130-400); RED CELL DISTRIBUTION WIDTH CV 13.8 % (11.5-14.5); RED CELL DISTRIBUTION WIDTH SD 48.9 fL (36.4-46.3); WHITE BLOOD COUNT 7.52 K/uL (4.8-10.8)
[2017-07-06 05:45] LABS: PTT PATIENT 23.5 SECONDS (21.0-31.0)
[2017-07-06 05:58] LABS: ALBUMIN 3.7 gm/dl (3.4-5.0); ALT/SGPT 571 U/L (12-78); AST/SGOT 97 U/L (15-37); BLOOD UREA NITROGEN 21 mg/dl (7-18); CALCIUM 8.7 mg/dl (8.5-10.1); CARBON DIOXIDE 27 mmol/L (21-32); CREATININE 0.99 mg/dl (0.60-1.20); GLUCOSE 90 mg/dl (70-99); POTASSIUM 3.9 mmol/L (3.5-5.1); SODIUM 140 mmol/L (136-145)
[2017-07-06 06:03] LABS: ALKALINE PHOSPHATASE 78 U/L (45-117); CHOLESTEROL 179 mg/dl (0-200); CKMB 1.2 ng/ml (0.5-3.6); LDL CHOLESTEROL CALCULATED 86 mg/dl
[2017-07-06 07:16] VITALS: BP 155/82; PULSE 61; TEMP 36.7; O2SAT 99
[2017-07-06] MEDS: ENOXAPARIN 40 MG/0.4 ML SYR SC SCH (08:42)
[2017-07-06] MEDS: CALCITRIOL 0.25 MCG CAP PO SCH (08:42)
[2017-07-06] MEDS: ASPIRIN 81 MG CHEW PO SCH (08:42)
[2017-07-06] MEDS: VENLAFAXINE HCL 50 MG TAB PO SCH (08:42)
--- NOTE | 2017-07-06 10:57 | PROGRESS NOTE ---
DATE: 07/06/2017 HOSPITALIST PROGRESS NOTE HISTORY OF PRESENT ILLNESS: Mrs. Hurst is a 76-year-old white female with a history of longstanding irritable bowel syndrome, diarrhea alternating with constipation, colonic diverticuli, hypertension, anxiety, and a history of shoulder osteoarthritis who recently received a corticosteroid injection in her right shoulder. The patient states that she has not felt like herself for about the past month, but she cannot describe how she feels different from baseline. Nonetheless, she was in her usual state of health, on 07/05/2017 reading a book when she developed sudden onset palpitations and an elevated pulse rate. She states that her pulse rate was between 115 and 135 beats per minute, and it lasted for about 2 hours in total. For the second hour, she did have some discomfort in her left chest which radiated up into her neck and right jaw with some associated sweating, but no associated nausea, vomiting, or dyspnea. The patient tried taking her usual dose of Xanax at home, and that did not seem to relieve her symptoms in any way. Therefore, she presented to the ER for further evaluation. Upon arrival at the Emergency Room, her rhythm was a normal sinus rhythm with a heart rate of approximately 90 beats per minute. Thus far on telemetry monitoring, she has had normal sinus rhythm with occasional PVCs and occasional periods of sinus bradycardia. No other arrhythmias noted. Interestingly, the patient was placed on corticosteroids several years ago and she had palpitations after receiving steroids in the past. The patient has no prior cardiac history or prior cardiac events. She denies any history of CAD, CHF, GA, rheumatic fever, or any valvular heart disease. At the present time, the patient feels "shaky", but has not had any further cardiac symptoms. She currently denies any chest pain, heaviness, tightness, pressure, or discomfort. She denies any neck, arm, back, or jaw pain. No shortness of breath, unusual dyspnea on exertion, or any recent changes in her exertional tolerance. She denies any orthopnea or PND. No syncope or near syncope. MEDICATIONS: 1. Lipitor 20 mg q.p.m. 2. Desyrel 50 mg at bedtime. 3. Lovenox 40 mg injection subcutaneously every 24 hours. 4. Aspirin 81 mg daily. 5. Atenolol 25 mg daily. 6. Rocaltrol 0.25 mcg daily. 7. Effexor XR 150 mg q.a.m. 8. Normal saline solution with potassium chloride at 75 mL per hour. 9. Sublingual nitroglycerin as needed. 10. Xanax 0.25 mg p.o. every 6 hours p.r.n. for anxiety. 11. Neurontin 400 mg at bedtime p.r.n. 12. Zofran 8 mg p.o. every 6 hours p.r.n. for nausea. ALLERGIES: 1. PENICILLIN. 2. SULFA. 3. GLUTEN FLOUR. 4. SHE IS LACTOSE-INTOLERANT. PHYSICAL EXAMINATION: VITAL SIGNS: Temperature is 36.7 degrees Celsius, pulse 60 and regular, respiratory rate is 14 and unlabored, blood pressure is 155/82, SPO2 is 99% on room air. GENERAL: The patient is in no acute distress. HEENT: Head is atraumatic, normocephalic. EOMs intact. Sclerae are anicteric. Face is symmetric. No perioral cyanosis. Mucous membranes moist. NECK: Without thyromegaly, adenopathy, or JVD. Carotid upstrokes are +2 bilaterally without bruits. CHEST AND LUNGS: Clear to auscultation throughout all lung mae, no wheezes, rales, or rhonchi. CARDIOVASCULAR SYSTEM: S1 and S2 are regular without obvious murmur, gallop, or rub. PMI is nondisplaced. No lifts, heaves, or thrills. No abdominal, aortic, or renal bruits. ABDOMINAL EXAMINATION: Bowel sounds are present. No masses, organomegaly, or tenderness. EXTREMITIES: Without clubbing, cyanosis, or edema. NEUROLOGIC EXAMINATION: The patient is awake, alert, and interactive. Pleasant and cooperative. Answers questions appropriately. Speech is clear. Normal movement in all 4 extremities. DATA: Telemetry monitoring has been unremarkable, showing predominantly normal sinus rhythm, occasional PVCs, and occasionally sinus bradycardia. Echocardiogram was performed earlier today. This has not been interpreted yet. LABORATORIES: White blood cell count 7.52. Hemoglobin 12.2 g/dL, hematocrit 37.5%, platelet count is 155,000. Sodium is 140 mmol/L, potassium 3.9 mmol/L, BUN is 21 mg/dL, creatinine 0.99 mg/dL. Random glucose 90 mg/dL. Serum magnesium level 2.2 mg/dL. Total bilirubin and direct bilirubin are within normal limits. AST elevated at 97, ALT elevated at 571 units per L. Total CKs are 26, 33, and 39 units per L with respective CK-MBs of 1.2, 1.1, and 0.8 ng/mL. Troponin I levels are 0.052, 0.052, and less than 0.015 ng/mL. Total cholesterol is 179 with an HDL of 68 and an LDL of 86. TSH is normal at 3.360. Hepatitis laboratories are underway. Abdominal and pelvic CT scan shows no acute intra-abdominal or intrapelvic abnormalities, colonic diverticulosis without evidence of diverticulitis, 7 mm calcified aneurysm of the splenic artery, and evidence of prior hysterectomy. The liver, gallbladder, and pancreas appear to be within normal limits. ASSESSMENT: 1. Tachypalpitations with a heart rates as high as 135 beats per minute. She has not demonstrated any tachycardias or tachyarrhythmias on telemetry monitoring. 2. Question if her palpitations are a side effect of her recent corticosteroid injection. 3. Mildly elevated troponin I level and transient chest discomfort during tachy palpitations, possibly some underlying coronary artery disease. 4. Abnormal ALT, AST, workup underway. 5. History of anxiety. 6. Irritable bowel syndrome. 7. Chronic kidney disease. 8. Diagnoses as mentioned above. PLAN: 1. So far her telemetry monitoring has not revealed any tachyarrhythmias or any tachycardias. I have described how it is important to identify the rhythm disturbance which correlates to her palpitations, so it can be treated appropriately. We would recommend monitoring on telemetry for at least the next 24 hours. If it is still unrevealing at that point, we would recommend sending her home with a 30-day event monitor. 2. Continue workup for abnormal LFTs. 3. Continue Atenolol 25 mg daily. 4. Continue Aspirin 81 mg daily. 5. Continue Lipitor 20 mg daily. 6. Await echocardiogram results. 7. We will continue to follow her closely. ADDENDUM: Telemetry 07/06/2017 at 13:13 showed two brief episodes of a narrow complex tachycardia - It appears to be either Paroxysmal Atrial Tachycardia vs Sinus Tachycardia. Attending Attestation: Pt seen/examined, chart reviewed, care plan d/w JUANITA Donovan. I agree w/ the buck components of his documentation. Pt denies any current palpitations, abd pain, worsening diarrhea above baseline , or chest pain. Tele w/ 2 brief runs of tachycardia - possibly PAT. VSS no fever gen - NAD neck - no JVD heart - RRR, s1, s2 lungs - CTA b/l abd - soft, NT, ND, BS+, no HSM ext - no edema A/P: 1. palpitations - possibly due to PAT as seen on tele today; no obvious a. fib or flutter at this time. 2. positive troponin - likely myocardial demand ischemia in the setting of #1 prior to admission (had 2 hours of palpitations). 3. abnormal LFTs - already improving; exact etiology uncertain; await acute hepatitis profile; could consider EBV, CMV titers given her 3-4 weeks of simply not feeling well. Consider RUQ u/s although the liver appears normal on CT abd/pelvis. 4. IBS Jamison Charles MD [facility]
[2017-07-06 11:05] VITALS: BP 138/78; PULSE 53; TEMP 36.7; O2SAT 99
[2017-07-06 11:37] LABS: HEMOGLOBIN A1C 5.6 % (4.5-5.6)
[2017-07-06 13:43] LABS: CKMB 0.8 ng/ml (0.5-3.6)
--- NOTE | 2017-07-06 13:51 | ECHOCARDIOGRAM REPORT ---
*NOTICE TO RECEIVING LIBERTARIAN AGENCY This information is strictly Confidential and protected under [place] law. [place] law prohibits you from making any further disclosure of this information unless further disclosure is expressly permitted by the written consent of the person to whom it pertains or is authorized by law. A general authorization for the release of medical or other information is not sufficient for this purpose. Hospital accepts no responsibility if the information is made available to any other person, INCLUDING THE PATIENT. Interpretation Summary * Name: BLANCA SAEZ Study Date: 07/06/2017 07:15 AM BP: 155/82 mmHg * Patient Location: .2T\S\S241\S\1 HR: 61 * : 1940 (M/d/yyyy) Gender: Female Height: 60 in * Age: 76 yrs Ethnicity: CA Weight: 134 lb * Ordering Physician: Maximus Herrera * Referring Physician: Loyd Bustillos * Performed By: Donna Lassiter RDCS * * Reason For Study: CHEST PAIN * BSA: 1.6 m2 * -- Conclusions -- * Left ventricular systolic function is normal. * No regional wall motion abnormalities noted. * Ejection Fraction = 60-65%. * There is borderline concentric left ventricular hypertrophy. * Diastolic dysfunction, Grade II (pseudonormalization pattern). * There is mild mitral regurgitation. Procedure Details * A complete two-dimensional transthoracic echocardiogram was performed (2D, M-mode, Doppler and color flow Doppler). Left Ventricle * The left ventricle is normal in size. * There is borderline concentric left ventricular hypertrophy. * Ejection Fraction = 60-65%. * Left ventricular systolic function is normal. * No regional wall motion abnormalities noted. Right Ventricle * The right ventricle is not well visualized. * The right ventricular systolic function is normal as assessed by tricuspid annular plane systolic excursion (TAPSE) (normal >1.5 cm). Atria * The left atrium is mildly dilated. * Right atrium not well visualized. * Lipomatous hypertrophy of the interatrial septum is noted. Mitral Valve * The mitral valve is grossly normal. * There is mild mitral regurgitation. Tricuspid Valve * The tricuspid valve is not well visualized, but is grossly normal. * There is no tricuspid stenosis. * Significant tricuspid regurgitation is absent. Aortic Valve * The aortic valve is not well visualized. * The aortic valve opens well. * No hemodynamically significant valvular aortic stenosis. * There is no significant aortic regurgitation. Pulmonic Valve * The pulmonary valve is not well seen, but the Doppler examination is normal without significant regurgitation or stenosis. Great Vessels * The aortic root is normal size. * The pulmonary is not well visualized. Pericardium/Pleural * There is no pericardial effusion. Great Vessels * Normal inferior vena cava size and collapsability with sniff indicates a normal right atrial pressure of 3 mmHg Left Ventricular Diastolic Function * Diastolic dysfunction, Grade II (pseudonormalization pattern). MMode 2D Measurements and Calculations IVSd 1.2 cm IVSs 1.8 cm LVIDd 4.6 cm LVIDs 3.0 cm LVPWd 1.2 cm LVPWs 1.8 cm IVS/LVPW 0.96 FS 36.2 % EDV(Teich) 98.7 ml ESV(Teich) 33.7 ml EF(Teich) 65.8 % EDV(cubed) 99.1 ml ESV(cubed) 25.8 ml EF(cubed) 74.0 % % IVS thick 53.2 % % LVPW thick 51.4 % LV mass(C)d 206.5 grams LV mass(C)dI 131.2 grams/m\S\2 LV mass(C)s 218.8 grams LV mass(C)sI 139.0 grams/m\S\2 SV(Teich) 65.0 ml SI(Teich) 41.3 ml/m\S\2 SV(cubed) 73.3 ml SI(cubed) 46.6 ml/m\S\2 ACS 1.1 cm LA dimension 3.9 cm asc Aorta Diam 2.8 cm LVOT diam 1.6 cm LVOT area 2.1 cm\S\2 LVAd ap4 13.9 cm\S\2 LVLd ap4 5.8 cm EDV(MOD-sp4) 28.5 ml EDV(sp4-el) 28.5 ml LVAs ap4 7.2 cm\S\2 LVLs ap4 5.7 cm ESV(MOD-sp4) 8.6 ml ESV(sp4-el) 7.8 ml EF(MOD-sp4) 70.0 % EF(sp4-el) 72.6 % LVAd ap2 19.0 cm\S\2 LVLd ap2 6.2 cm EDV(MOD-sp2) 50.5 ml EDV(sp2-el) 49.4 ml LVAs ap2 9.2 cm\S\2 LVLs ap2 4.9 cm ESV(MOD-sp2) 14.4 ml ESV(sp2-el) 14.4 ml EF(MOD-sp2) 71.4 % EF(sp2-el) 70.8 % LVLd %diff 6.8 % EDV(MOD-bp) 38.4 ml LVLs %diff -14.80 % ESV(MOD-bp) 11.8 ml EF(MOD-bp) 69.3 % SV(MOD-sp4) 19.9 ml SI(MOD-sp4) 12.7 ml/m\S\2 SV(MOD-sp2) 36.0 ml SI(MOD-sp2) 22.9 ml/m\S\2 SV(MOD-bp) 26.6 ml SI(MOD-bp) 16.9 ml/m\S\2 SV(sp4-el) 20.7 ml SI(sp4-el) 13.2 ml/m\S\2 SV(sp2-el) 34.9 ml SI(sp2-el) 22.2 ml/m\S\2 Doppler Measurements and Calculations MV E max holly 63.6 cm/sec MV A max holly 42.1 cm/sec MV E/A 1.5 MV dec time 0.22 sec Ao V2 max 136.5 cm/sec Ao max PG 7.5 mmHg Ao max PG (full) 3.9 mmHg SHERRI(V,A) 1.4 cm\S\2 SHERRI(V,D) 1.4 cm\S\2 LV V1 max PG 3.5 mmHg LV V1 max 93.8 cm/sec MR max holly 441.3 cm/sec MR max PG 77.9 mmHg PA V2 max 79.3 cm/sec PA max PG 2.5 mmHg
[2017-07-06] MEDS ORDERED: BISACODYL 10 MG SUPP PR STA (15:18)
[2017-07-06 15:23] VITALS: BP 155/80; PULSE 57; TEMP 36.7; O2SAT 98
[2017-07-06 19:20] VITALS: BP 152/76; PULSE 55; TEMP 36.8; O2SAT 98
[2017-07-06] MEDS ORDERED: ATORVASTATIN 20 MG TAB PO SCH (21:00)
[2017-07-06] MEDS: ALPRAZOLAM 0.25 MG TAB PO PRN (21:14)
[2017-07-06] MEDS: TRAZODONE HCL 50 MG TAB PO SCH (21:14)
[2017-07-06 23:38] VITALS: BP 111/66; PULSE 54; TEMP 36.5; O2SAT 98
[2017-07-07 03:40] VITALS: BP 114/72; PULSE 62; TEMP 36.8; O2SAT 97
[2017-07-07 06:09] LABS: BASO % 0.2 %; BASO ABS # 0.01 K/uL (0-0.2); EOS % 5.5 %; EOS ABS # 0.31 K/uL (0-0.5); HEMOGLOBIN 12.8 g/dL (12.0-16.0); IG# 0.03 K/uL (0.00-0.02); LYMPH % 15.3 %; LYMPH ABS # 0.86 K/uL (1.2-3.4); MEAN CELL VOLUME 96.1 fL (80-100); MEAN CORPUSCULAR HEMOGLOBIN 31.5 pg (25-34); MEAN CORPUSCULAR HGB CONC 32.8 g/dl (32-36); MEAN PLATELET VOLUME 10.6 fL (7.4-10.4); MONO % 9.4 %; MONO ABS # 0.53 K/uL (0.11-0.59); NEUT % 69.1 %; NEUT ABS # 3.88 K/uL (1.4-6.5); PLATELET COUNT 139 K/uL (130-400); RED CELL DISTRIBUTION WIDTH CV 13.6 % (11.5-14.5); RED CELL DISTRIBUTION WIDTH SD 47.2 fL (36.4-46.3); WHITE BLOOD COUNT 5.62 K/uL (4.8-10.8)
[2017-07-07 06:27] LABS: PTT PATIENT 24.6 SECONDS (21.0-31.0)
[2017-07-07 06:42] LABS: ALBUMIN 3.6 gm/dl (3.4-5.0); CALCIUM 9.2 mg/dl (8.5-10.1); CREATININE 1.04 mg/dl (0.60-1.20); POTASSIUM 4.3 mmol/L (3.5-5.1)
[2017-07-07 06:45] LABS: TOTAL PROTEIN 7.1 gm/dl (6.4-8.2)
[2017-07-07 07:09] VITALS: BP 128/78; PULSE 73; TEMP 36.4; O2SAT 97
[2017-07-07] MEDS: ASPIRIN 81 MG CHEW PO SCH (07:58)
[2017-07-07] MEDS: VENLAFAXINE HCL 50 MG TAB PO SCH (07:59)
[2017-07-07] MEDS: ENOXAPARIN 40 MG/0.4 ML SYR SC SCH (07:59)
[2017-07-07] MEDS: NSS + 20MEQ KCL 1000ML 1,000 ML IV SCH (07:59)
[2017-07-07] MEDS: CALCITRIOL 0.25 MCG CAP PO SCH (08:00)
[2017-07-07] MEDS: ALPRAZOLAM 0.25 MG TAB PO PRN ×3 (08:02→21:17)
[2017-07-07 11:56] VITALS: BP 158/81; PULSE 55; TEMP 36.8; O2SAT 97
[2017-07-07] MEDS ORDERED: NURSING VERBAL MED ORDER ONE (12:30)
[2017-07-07] MEDS ORDERED: OPTIRAY 320 IV PRN (13:00)
--- NOTE | 2017-07-07 13:25 | DIAGNOSTIC IMAGING REPORT ---
(CHEST FOR PE) ANGIO WITH CT DOSE: 224.87 mGy.cm HISTORY: 76 years-old Female presents with acute chest pain and cardiac palpitations TECHNIQUE: Multiple CTA images of the chest were obtained after the intravenous administration of 95 ml Optiray 320. Coronal and sagittal MIPS were obtained from the axial data set and were submitted for review. A dose lowering technique was utilized adhering to the principles of ALARA. COMPARISON: Chest CT 08/08/2006. FINDINGS: CTA: Heart is normal in size without pericardial effusion. Coronary arterial calcifications are noted. Thoracic aorta is normal in course and caliber without aneurysm or dissection. The imaged great vessels appear patent. The pulmonary arterial tree is opacified to the level of the distal segmental branches. The subsegmental branches are suboptimally evaluated secondary to respiratory motion and contrast bolus timing. No focal filling defects identified to suggest pulmonary thromboembolic disease. CT CHEST: No dominant thyroid nodule or pathologic adenopathy identified. No pneumothorax, pleural effusion, focal airspace consolidation or overt pulmonary edema. 7 mm groundglass opacity is noted within the dependent left upper lobe on image 194 series 4. There is mild dependent groundglass opacities compatible with atelectasis. 3 mm solid nodule of the left lower lobe, image 39 series 4, likely benign. Mild biapical pleural-parenchymal scarring. Evaluation of the lung bases is limited secondary to respiratory motion. Central airways are patent. No acute process of the imaged upper abdomen. Soft tissues are unremarkable. Bones appear intact. Multilevel endplate spurring about the spine. IMPRESSION: 1. No acute intrathoracic evaluate identified, specifically no acute aortic pathology or evidence of pulmonary thromboembolic disease. 2. Minimal dependent subsegmental bibasilar atelectasis with 7 mm ground glass opacity of the left upper lobe also favoring atelectasis or scarring. 3. No pathologic adenopathy or focal airspace consolidation. The above report was generated using voice recognition software. It may contain grammatical, syntax or spelling errors. Electronically signed by: Ja Rivas M.D. 07/07/2017 1:24 PM Dictated Date/Time: 07/07/2017 1:17 PM
--- NOTE | 2017-07-07 15:21 | Progress Note ---
Subjective Date of Service: July 07, 2017. Subjective Pt evaluation today including: conversation w/ patient, conversation w/ family , physical exam, chart review, lab review, review of studies, conversation w/ program consultant, review of inpatient medication list Voiding: no voiding problems Mild anxious, no other complaint, denied chest pain denies palpitation Problem List Medical Problems: (1) Elevated LFTs Status: Acute (2) Palpitations Status: Acute (3) Substernal chest pain Status: Acute Review of Systems Constitutional: No fever, No chills, No sweats, No weight loss, No weakness, No fatigue, No problem reported Eyes: No worsening of vision, No eye pain, No redness, No discharge, No diplopia ENT: No hearing loss, No unusual epistaxis, No nasal symptoms, No sore throat, No tinnitus, No dental problems, No trouble swallowing Respiratory: No cough, No sputum, No wheezing, No shortness of breath, No dyspnea on exertion, No dyspnea at rest, No hemoptysis Cardiac: No chest pain, No orthopnea, No PND, No edema, No claudication, No palpitations Abdomen: No pain, No nausea, No vomiting, No diarrhea, No constipation Musculoskeletal: No joint pain, No muscle pain, No swelling, No calf pain Female : No dysuria, No urinary frequency, No hematuria, No incontinence, No abnormal vaginal bleeding, No vaginal discharge Neurologic: No memory loss, No paralysis, No weakness, No numbness/tingling, No vertigo, No balance problems Psychiatric: No depression symptoms, No anhedonism, No anxiety, No insomnia, No substance abuse Heme: No abnormal bleeding/bruising, No clotting problems, No swollen lymph nodes, No night sweats Endo: No fatigue, No excessive thirst, No excessive urination Skin: No rash, No itch, No new/changing skin lesions, No color change, No bleeding Objective Vital Signs Date Time Temp Pulse Resp B/P (MAP) Pulse Ox O2 Delivery O2 Flow Rate FiO2 07/07/17 12:00 Room Air 07/07/17 11:56 36.8 55 18 158/81 (106) 97 Room Air 07/07/17 08:00 Room Air 07/07/17 07:09 36.4 73 17 128/78 (95) 97 Room Air 07/07/17 04:00 Room Air 5/6/18 03:40 36.8 62 17 114/72 (86) 97 Room Air 07/06/17 23:59 Room Air 07/06/17 23:38 36.5 54 17 111/66 (81) 98 Room Air 07/06/17 20:00 Room Air 07/06/17 19:20 36.8 55 18 152/76 (101) 98 Room Air 07/06/17 16:00 Room Air 07/06/17 15:23 36.7 57 17 155/80 (105) 98 Room Air Physical Exam General Appearance: WD/WN, no apparent distress Eyes: normal inspection, PERRL, EOMI, sclerae normal ENT: normal ENT inspection, hearing grossly normal, pharynx normal Neck: supple, no adenopathy, thyroid normal, no JVD, no carotid bruits, trachea midline Respiratory/Chest: chest non-tender, normal breath sounds, no respiratory distress, no accessory muscle use, + decreased breath sounds Cardiovascular: regular rate, rhythm, no edema, no gallop, no JVD, no murmur Abdomen: normal bowel sounds, non tender, soft, no organomegaly, no pulsatile mass Extremities: normal range of motion, non-tender, normal inspection, no pedal edema, no calf tenderness, normal capillary refill, pelvis stable Neurologic/Psychiatric: lead caregiver II-XII nml as tested, no motor/sensory deficits, alert, normal mood/affect, oriented x 3 Skin: normal color, warm/dry, no rash Lymphatic: no adenopathy Laboratory Results Last 24 Hours Test 07/07/17 05:56 07/07/17 12:21 White Blood Count 5.62 K/uL Red Blood Count 4.06 M/uL Hemoglobin 12.8 g/dL Hematocrit 39.0 % Mean Corpuscular Volume 96.1 fL Mean Corpuscular Hemoglobin 31.5 pg Mean Corpuscular Hemoglobin Concent 32.8 g/dl Platelet Count 139 K/uL Mean Platelet Volume 10.6 fL Neutrophils (%) (Auto) 69.1 % Lymphocytes (%) (Auto) 15.3 % Monocytes (%) (Auto) 9.4 % Eosinophils (%) (Auto) 5.5 % Basophils (%) (Auto) 0.2 % Neutrophils # (Auto) 3.88 K/uL Lymphocytes # (Auto) 0.86 K/uL Monocytes # (Auto) 0.53 K/uL Eosinophils # (Auto) 0.31 K/uL Basophils # (Auto) 0.01 K/uL RDW Standard Deviation 47.2 fL RDW Coefficient of Variation 13.6 % Immature Granulocyte % (Auto) 0.5 % Immature Granulocyte # (Auto) 0.03 K/uL Prothrombin Time 10.6 SECONDS Prothromb Time International Ratio 1.0 Activated Partial Thromboplast Time 24.6 SECONDS Partial Thromboplastin Ratio 0.9 Sodium Level 138 mmol/L Potassium Level 4.3 mmol/L Chloride Level 108 mmol/L Carbon Dioxide Level 27 mmol/L Anion Gap 3.0 mmol/L Blood Urea Nitrogen 17 mg/dl Creatinine 1.04 mg/dl Est Creatinine Clear Calc Drug Dose 40.4 ml/min Estimated GFR () 60.9 Estimated GFR (Non- 52.5 BUN/Creatinine Ratio 16.8 Random Glucose 93 mg/dl Calcium Level 9.2 mg/dl Magnesium Level 2.2 mg/dl Total Bilirubin 0.6 mg/dl Direct Bilirubin 0.1 mg/dl Aspartate Amino Transf (AST/SGOT) 47 U/L Alanine Aminotransferase (ALT/SGPT) 395 U/L Alkaline Phosphatase 80 U/L Total Protein 7.1 gm/dl Albumin 3.6 gm/dl D-Dimer 630 ug/L FEU Assessment and Plan 76-year-old white female admitted on July 05, 2017 because of palpitation and tachycardia 1. Tachy palpitations with a heart rates as high as 135 beats per minute upon admission Improved, Telemetry 07/06/2017 at 13:13 showed two brief episodes of a narrow complex tachycardia - It appears to be either Paroxysmal Atrial Tachycardia vs Sinus Tachycardia. Echo was done results in below, * Left ventricular systolic function is normal. * No regional wall motion abnormalities noted. * Ejection Fraction = 60-65%. * There is borderline concentric left ventricular hypertrophy. * Diastolic dysfunction, Grade II (pseudonormalization pattern). * There is mild mitral regurgitation. Question if her palpitations are a side effect of her recent corticosteroid injection. Tachycardia, elevated troponin, has rule out PE May need outpatient event monitoring Mildly elevated troponin I level and transient chest discomfort during tachy palpitations, possibly some underlying coronary artery disease. Because of the above tachycardia and elevated troponin, cardiology consultation , for further suggestion of stress test or not, no further need for EP study Abnormal ALT, AST, workup underway. Generally is improved Patient is asymptomatic hepatitis panel was ordered, no final result yet, will order right upper quadrant ultrasound History of anxiety fibromyalgia, Irritable bowel syndrome, Chronic kidney disease. Stable continue current We will follow-up cardiac input GI DVT prophylaxis is covered, increase activity PTOT discharge plan possible tomorrow Continued [facility] stay due to: multiple IV medications needed Discharge planning: home
[2017-07-07 15:22] VITALS: BP 149/80; PULSE 59; TEMP 36.5; O2SAT 98
[2017-07-07 18:38] LABS: HEPATITIS A IGM TC 51813E NON-REACTIVE (NON-REACTIVE); HEPATITIS B CORE IGM TC51854R NON-REACTIVE (NON-REACTIVE)
[2017-07-07 19:25] VITALS: BP 115/73; PULSE 60; TEMP 36.5; O2SAT 99
[2017-07-07] MEDS: TRAZODONE HCL 50 MG TAB PO SCH (21:17)
[2017-07-07 23:38] VITALS: BP 108/67; PULSE 59; TEMP 36.5; O2SAT 97
[2017-07-08] VITALS (7 sets, daily range): BP systolic 103–144; BP diastolic 61–81; PULSE 56–79; TEMP 36.3–36.9; O2SAT 92–99
[2017-07-08] MEDS: GABAPENTIN 400 MG CAP PO PRN (03:35)
[2017-07-08 06:15] LABS: BASO % 0.1 %; BASO ABS # 0.01 K/uL (0-0.2); EOS % 5.7 %; EOS ABS # 0.48 K/uL (0-0.5); HEMATOCRIT 42.9 % (37-47); HEMOGLOBIN 14.2 g/dL (12.0-16.0); IG# 0.06 K/uL (0.00-0.02); LYMPH % 22.2 %; LYMPH ABS # 1.85 K/uL (1.2-3.4); MEAN CELL VOLUME 96.2 fL (80-100); MEAN CORPUSCULAR HEMOGLOBIN 31.8 pg (25-34); MEAN CORPUSCULAR HGB CONC 33.1 g/dl (32-36); MEAN PLATELET VOLUME 10.6 fL (7.4-10.4); MONO % 10.4 %; MONO ABS # 0.87 K/uL (0.11-0.59); NEUT % 60.9 %; NEUT ABS # 5.08 K/uL (1.4-6.5); PLATELET COUNT 198 K/uL (130-400); RED CELL DISTRIBUTION WIDTH CV 13.7 % (11.5-14.5); RED CELL DISTRIBUTION WIDTH SD 48.1 fL (36.4-46.3); WHITE BLOOD COUNT 8.35 K/uL (4.8-10.8)
[2017-07-08 06:29] LABS: PTT PATIENT 26.4 SECONDS (21.0-31.0)
[2017-07-08 06:52] LABS: ALBUMIN 4.1 gm/dl (3.4-5.0); CALCIUM 9.2 mg/dl (8.5-10.1); CREATININE 1.2 mg/dl (0.60-1.20)
--- NOTE | 2017-07-08 08:21 | DIAGNOSTIC IMAGING REPORT ---
ABDOMINAL ULTRASOUND, RIGHT UPPER QUADRANT HISTORY: Right upper quadrant pain, gallbladder and liver/ biliary tract. COMPARISON: Abdomen and pelvis CT 07/05/2017. FINDINGS: Pancreas: The pancreas demonstrates a normal echotexture. Liver: Unremarkable. Gallbladder: No gallbladder wall thickening. No gallstones. CBD: 6 mm. Right kidney: No hydronephrosis. IMPRESSION: No significant abnormality identified within the right upper quadrant. Electronically signed by: Hiren Campbell M.D. 07/08/2017 8:20 AM Dictated Date/Time: 07/08/2017 8:19 AM
[2017-07-08] MEDS: ENOXAPARIN 40 MG/0.4 ML SYR SC SCH (08:44)
[2017-07-08] MEDS: CALCITRIOL 0.25 MCG CAP PO SCH (08:44)
[2017-07-08] MEDS: VENLAFAXINE HCL 50 MG TAB PO SCH (08:44)
[2017-07-08] MEDS: ASPIRIN 81 MG CHEW PO SCH (08:44)
[2017-07-08] MEDS: ALPRAZOLAM 0.25 MG TAB PO PRN (08:46)
--- NOTE | 2017-07-08 09:20 | Cardiology Consultation ---
Cardiology Consultation Date of Consultation: July 08, 2017. Requesting Physician: Dr. Cisneros Reason for Consultation: Palpitations, PAT, abnormal cardiac enzymes Pt evaluation today including: conversation w/ patient, physical exam, lab review, review of studies, review of inpatient medication list History of Present Illness This is a very pleasant 76-year-old woman who has a long history of chest discomfort and palpitations. Her chest discomfort was evaluated in the past, in 2009 she had a cardiac catheterization (a dobutamine stress test earlier was negative but she had persistent symptoms of exertional jaw and neck discomfort) . The catheterization showed no coronary artery disease. She also describes a long history of intermittent palpitations but they are infrequent, she had an episode 15 or 20 years ago where she felt her heart beating rapidly for 45 minutes to an hour, she had it in toward the hospital but the symptoms resolved before she got here. She also had an episode of these similar symptoms of palpitations on July 05, 2017, they lasted for about 2 hours or more this time and she took her blood pressure and her heart rate on her blood pressure machine was as high as 135. When the symptoms persisted she came into the emergency room, however before she was evaluated here the symptoms had resolved. She also describes discomfort occurring after the onset of the palpitations, this included an epigastric discomfort with radiation to her neck and her jaw and sound suspicious for angina. That resolved with resolution of the tachycardia, however her enzymes were borderline elevated just after arrival and then dropped back to normal quickly. Electrocardiography did not show any acute changes, but she does have persistent nonspecific ST-T abnormalities. She also describes exertional symptoms which are little worrisome, she describes an inability to walk more than a block or 2 at times, she does not get the same type of discomfort that she described with the tachycardia but she has to stop and rest because she feels uncomfortable. She does not have palpitations typically with these and she has had brief episodes of PAT her in the hospital of which she was unaware. She also had elevated liver function tests on admission which have improved. Past Medical/Surgical History (1) Benign hypertension (2) IBS (irritable bowel syndrome) (3) History of - hysterectomy (4) Oophorectomy (5) Pneumonia (6) H/O: hysterectomy Family History FH: neurologic disorder FHx: anemia Heart disease Hypertension Kidney disease Kidney stones Lung disease Social History Smoking Status: Unknown if Ever Smoked History of Alcohol Use: No Review of Systems Constitutional: No fever, No weight loss, No weakness Respiratory: + see HPI, + dyspnea on exertion, No cough, No sputum, No wheezing , No shortness of breath, No dyspnea at rest, No hemoptysis Cardiac: + see HPI, + chest pain, + palpitations, No orthopnea, No PND, No edema, No claudication Abdomen: No pain, No nausea, No vomiting, No diarrhea, No GI bleeding Female : No problem reported Neurologic: No paralysis, No weakness, No numbness/tingling, No balance problems Heme: No abnormal bleeding/bruising, No clotting problems Endo: No fatigue Skin: No problem reported All Other Systems: Reviewed and Negative Allergies Coded Allergies: Penicillins (Verified Allergy, Severe, RASH, 09/30/15) PT'S FATHER HAD ANAPHYLACTIC RXN Gluten Flour (Verified Allergy, Intermediate, GI SYMPTOMS, 09/30/15) Lactose Intolerance (GI) (Verified Allergy, Intermediate, GI SYMPTOMS, ) Sulfa Antibiotics (Verified Allergy, Intermediate, RASH, 09/30/15) Sulfamethoxazole (Verified Allergy, Intermediate, RASH, 09/20/15) Medications Current Inpatient Medications Medications (Trade) Dose Ordered Sig/Maine Route Start Time Stop Time Status Last Admin Dose Admin Enoxaparin Sodium (Lovenox Inj) 40 mg Q24H SC 07/06/17 09:00 08/05/17 08:59 07/08/17 08:44 40 MG Nitroglycerin (Nitrostat Tab) 0.4 mg UD PRN SL 07/05/17 21:15 08/04/17 21:14 Aspirin (Aspirin Chew) 81 mg QAM PO 07/06/17 09:00 08/05/17 08:59 07/08/17 08:44 81 MG Atenolol (Tenormin Tab) 25 mg DAILY PO 07/06/17 09:00 08/05/17 08:59 07/08/17 08:44 25 MG Atorvastatin Calcium (Lipitor Tab) 20 mg QPM PO 07/06/17 21:00 08/05/17 20:59 Future Hold Calcitriol (Rocaltrol Cap) 0.25 mcg QAM PO 07/06/17 09:00 08/05/17 08:59 07/08/17 08:44 0.25 MCG Gabapentin (Neurontin Cap) 400 mg HS PRN PO 07/05/17 21:15 08/04/17 21:14 07/08/17 03:35 400 MG Trazodone HCl (Desyrel Tab) 50 mg HS PO 07/06/17 21:00 08/05/17 20:59 07/07/17 21:17 50 MG Venlafaxine HCl (effeXOR TAB) 150 mg QAM PO 07/06/17 09:00 08/05/17 08:59 07/08/17 08:44 150 MG Miscellaneous Information (Order Awaiting Action) 1 ea QS N/A 07/06/17 00:00 08/05/17 00:00 Ondansetron HCl (Zofran Odt) 8 mg Q6H PRN PO 07/05/17 21:15 08/04/17 21:14 Alprazolam (Xanax Tab) 0.5 mg Q6 PRN PO 07/06/17 10:30 08/04/17 21:14 07/08/17 08:46 0.5 MG Ioversol (Optiray 320) 100 ml UD PRN IV 07/07/17 13:00 07/11/17 12:59 Physical Exam Vital Signs Past 12 Hours Date Time Temp Pulse Resp B/P (MAP) Pulse Ox O2 Delivery O2 Flow Rate FiO2 07/08/17 08:00 Room Air 07/08/17 07:23 36.3 57 18 105/65 (78) 97 Room Air 07/08/17 04:01 Room Air 07/08/17 03:35 36.4 62 18 116/73 (87) 99 Room Air 07/07/17 23:59 Room Air 07/07/17 23:38 36.5 59 16 108/67 (81) 97 Room Air Constitutional: General Apperance: heathly-appearing Level of Distress: NAD Psychiatric: Mental Status: active & alert Head: normocephalic Eyes: EOM: EOMI ENMT: normal ENT inspection, hearing grossly normal Neck: supple, no masses Lungs: Respiratory effort: no dyspnea, good air movement Auscultation: breath sounds normal, no wheezing Cardiovascular: Heart Auscultation: RRR, no murmurs, no rubs, no gallops Peripheral Pulses: Bruits: none appreciated Abdomen: Bowel Sounds: normal Inspection & Palpation: soft, no tenderness, guarding & rebound, no masses Musculoskeletal: normal strength (5/5 throughout) Extremities: no edema Neurologic: Cranial Nerves: grossly intact Sensation: grossly intact Data Laboratory Results: Last 24 Hours Test 07/07/17 12:21 07/08/17 05:55 D-Dimer 630 ug/L FEU White Blood Count 8.35 K/uL Red Blood Count 4.46 M/uL Hemoglobin 14.2 g/dL Hematocrit 42.9 % Mean Corpuscular Volume 96.2 fL Mean Corpuscular Hemoglobin 31.8 pg Mean Corpuscular Hemoglobin Concent 33.1 g/dl Platelet Count 198 K/uL Mean Platelet Volume 10.6 fL Neutrophils (%) (Auto) 60.9 % Lymphocytes (%) (Auto) 22.2 % Monocytes (%) (Auto) 10.4 % Eosinophils (%) (Auto) 5.7 % Basophils (%) (Auto) 0.1 % Neutrophils # (Auto) 5.08 K/uL Lymphocytes # (Auto) 1.85 K/uL Monocytes # (Auto) 0.87 K/uL Eosinophils # (Auto) 0.48 K/uL Basophils # (Auto) 0.01 K/uL RDW Standard Deviation 48.1 fL RDW Coefficient of Variation 13.7 % Immature Granulocyte % (Auto) 0.7 % Immature Granulocyte # (Auto) 0.06 K/uL Prothrombin Time 10.5 SECONDS Prothromb Time International Ratio 1.0 Activated Partial Thromboplast Time 26.4 SECONDS Partial Thromboplastin Ratio 1.0 Sodium Level 137 mmol/L Potassium Level 4.0 mmol/L Chloride Level 102 mmol/L Carbon Dioxide Level 27 mmol/L Anion Gap 8.0 mmol/L Blood Urea Nitrogen 26 mg/dl Creatinine 1.20 mg/dl Est Creatinine Clear Calc Drug Dose 35.0 ml/min Estimated GFR () 51.2 Estimated GFR (Non- 44.2 BUN/Creatinine Ratio 21.8 Random Glucose 99 mg/dl Calcium Level 9.2 mg/dl Magnesium Level 2.2 mg/dl Total Bilirubin 0.6 mg/dl Direct Bilirubin 0.1 mg/dl Aspartate Amino Transf (AST/SGOT) 30 U/L Alanine Aminotransferase (ALT/SGPT) 329 U/L Alkaline Phosphatase 86 U/L Total Protein 8.0 gm/dl Albumin 4.1 gm/dl Imaging: Chest x-ray on admission was unremarkable, CT scan of the chest was negative for PE or other significant abnormality, CT of the abdomen was also unremarkable. Ultrasound of the right upper quadrant was unremarkable today. EKG: Several electrocardiograms available for review, the shows sinus rhythm with some nonspecific inferolateral ST-T abnormalities. Telemetry reviewed: Sinus rhythm and sinus bradycardia, several brief episodes of PAT (5-10 seconds) at a heart rate of around 140 bpm, appeared to be an automatic atrial arrhythmia with a P-wave morphology similar to sinus. Echocardiography: Normal left ventricular size and function with no regional wall motion abnormalities Assessment & Plan 1. Palpitations: She has a history of intermittent palpitations but these are very rare, she can only recall 2 episodes that she felt, one perhaps 20 years ago and one that brought her into the hospital. The heart rate by her measurement varied somewhat but the maximum was about 135 bpm on this presentation, however it resolved before she got in so I do not know what that rhythm was. With the infrequency of episodes would be difficult to record. 2. PAT: Here in the hospital she has had what appears to be an atrial tachycardia with a similar heart rate to which she describes preadmission but not sustained. The most likely is that she had a sustained similar arrhythmia prior to admission, but I cannot exclude the possibility of some other type of arrhythmia such as a reentrant SVT. She did not feel the ones in the hospital, but they did not last long enough perhaps for her to become aware of. She was on atenolol for hypertension, I would like to switch this to diltiazem and perhaps go up on the equivalent dose. I would like to wait until after the stress test however. If it is an atrial tachycardia this may help. We could go up on the beta-bella, but she is somewhat bradycardic at times. 3. Chest discomfort: She had chest discomfort which is anginal in character during this tachycardia, her enzymes were very slightly elevated. She has had a catheterization but that was in 2009 and that did not show any disease. It is possible the enzyme abnormalities are simply due to the heart rate, or perhaps the rate was faster than documented since we do not have a recording as an outpatient. She also has exertional symptoms which could be consistent with angina. With negative evaluations in the past (including the catheterization) I am reluctant to pursue invasive evaluation now. I would like to do a stress test. I would prefer a treadmill stress test but she feels that she cannot walk on a treadmill, evidently she fell off in the past and she is treated for fibromyalgia and does not feel that she can exercise adequately. I will therefore schedule a pharmacologic test, that will give us information as to what is causing her shortness of breath but we can hopefully exclude significant coronary artery disease. Thank you for allowing me to participate in her care.
[2017-07-08] MEDS ORDERED: DOBUTamine HCL 12.5 MG/ML 20 ML VIAL ONE (10:01)
[2017-07-08] MEDS ORDERED: METOPROLOL TARTRATE 1 MG/ML VIAL ONE ×2 (10:01→10:02)
[2017-07-08] MEDS ORDERED: ATROPINE SULFATE 0.1 MG/ML 5ML SYR ONE ×3 (10:01→10:30)
[2017-07-08] MEDS ORDERED: PERFLUTREN LIPID MICROSPHERE (DEFINITY) IV ONE (10:55)
--- NOTE | 2017-07-08 15:44 | Hospitalist Progress Note ---
Hospitalist Progress Note Date of Service July 08, 2017. Subjective Pt evaluation today including: conversation w/ patient, physical exam, lab review, review of studies, review of inpatient medication list Voiding: no voiding problems Patient sitting in bedside chair. Feeling well. Eating a light breakfast prior to stress ECHO. Tolerating OK. Denies any recent episodes of palpitations. Anxious for discharge home. Patient denies any fever, chills, sweats, lightheadedness, dizziness, vision changes, CP, palpitations, edema, SOB, wheezing, cough, abdominal pain, nausea, vomiting, diarrhea, urinary symptoms, melena, numbness/tingling, weakness, muscle/joint pain, anxiety/depression, active bleeding, or new skin discoloration/changes. Medications Current Inpatient Medications Medications (Trade) Dose Ordered Sig/[place]aine Route Start Time Stop Time Status Last Admin Dose Admin Enoxaparin Sodium (Lovenox Inj) 40 mg Q24H SC 07/06/17 09:00 08/05/17 08:59 07/08/17 08:44 40 MG Nitroglycerin (Nitrostat Tab) 0.4 mg UD PRN SL 07/05/17 21:15 08/04/17 21:14 Aspirin (Aspirin Chew) 81 mg QAM PO 07/06/17 09:00 08/05/17 08:59 07/08/17 08:44 81 MG Atorvastatin Calcium (Lipitor Tab) 20 mg QPM PO 07/06/17 21:00 08/05/17 20:59 Future Hold Calcitriol (Rocaltrol Cap) 0.25 mcg QAM PO 07/06/17 09:00 08/05/17 08:59 07/08/17 08:44 0.25 MCG Gabapentin (Neurontin Cap) 400 mg HS PRN PO 07/05/17 21:15 08/04/17 21:14 07/08/17 03:35 400 MG Trazodone HCl (Desyrel Tab) 50 mg HS PO 07/06/17 21:00 08/05/17 20:59 07/07/17 21:17 50 MG Venlafaxine HCl (effeXOR TAB) 150 mg QAM PO 07/06/17 09:00 08/05/17 08:59 07/08/17 08:44 150 MG Miscellaneous Information (Order Awaiting Action) 1 ea QS N/A 07/06/17 00:00 08/05/17 00:00 Ondansetron HCl (Zofran Odt) 8 mg Q6H PRN PO 07/05/17 21:15 08/04/17 21:14 Alprazolam (Xanax Tab) 0.5 mg Q6 PRN PO 07/06/17 10:30 08/04/17 21:14 07/08/17 08:46 0.5 MG Ioversol (Optiray 320) 100 ml UD PRN IV 07/07/17 13:00 07/11/17 12:59 Objective Vital Signs Date Time Temp Pulse Resp B/P (MAP) Pulse Ox O2 Delivery O2 Flow Rate FiO2 07/08/17 12:00 Room Air 07/08/17 11:50 36.5 72 16 107/77 (87) 97 Room Air 07/08/17 08:00 Room Air 07/08/17 07:23 36.3 57 18 105/65 (78) 97 Room Air 07/08/17 04:01 Room Air 07/08/17 03:35 36.4 62 18 116/73 (87) 99 Room Air 07/07/17 23:59 Room Air 07/07/17 23:38 36.5 59 16 108/67 (81) 97 Room Air 07/07/17 20:00 Room Air 07/07/17 19:25 36.5 60 18 115/73 (87) 99 Room Air 07/07/17 16:00 Room Air 07/07/17 15:22 36.5 59 16 149/80 (103) 98 Room Air Physical Exam General Appearance: no apparent distress Eyes: normal inspection, PERRL ENT: hearing grossly normal Neck: supple Respiratory/Chest: lungs clear, no respiratory distress, no accessory muscle use Cardiovascular: regular rate, rhythm Abdomen: normal bowel sounds, non tender, soft Extremities: no pedal edema, no calf tenderness Neurologic/Psychiatric: alert, normal mood/affect, oriented x 3 Skin: normal color, warm/dry, no rash Laboratory Results Last 24 Hours Test 07/08/17 05:55 White Blood Count 8.35 K/uL Red Blood Count 4.46 M/uL Hemoglobin 14.2 g/dL Hematocrit 42.9 % Mean Corpuscular Volume 96.2 fL Mean Corpuscular Hemoglobin 31.8 pg Mean Corpuscular Hemoglobin Concent 33.1 g/dl Platelet Count 198 K/uL Mean Platelet Volume 10.6 fL Neutrophils (%) (Auto) 60.9 % Lymphocytes (%) (Auto) 22.2 % Monocytes (%) (Auto) 10.4 % Eosinophils (%) (Auto) 5.7 % Basophils (%) (Auto) 0.1 % Neutrophils # (Auto) 5.08 K/uL Lymphocytes # (Auto) 1.85 K/uL Monocytes # (Auto) 0.87 K/uL Eosinophils # (Auto) 0.48 K/uL Basophils # (Auto) 0.01 K/uL RDW Standard Deviation 48.1 fL RDW Coefficient of Variation 13.7 % Immature Granulocyte % (Auto) 0.7 % Immature Granulocyte # (Auto) 0.06 K/uL Prothrombin Time 10.5 SECONDS Prothromb Time International Ratio 1.0 Activated Partial Thromboplast Time 26.4 SECONDS Partial Thromboplastin Ratio 1.0 Sodium Level 137 mmol/L Potassium Level 4.0 mmol/L Chloride Level 102 mmol/L Carbon Dioxide Level 27 mmol/L Anion Gap 8.0 mmol/L Blood Urea Nitrogen 26 mg/dl Creatinine 1.20 mg/dl Est Creatinine Clear Calc Drug Dose 35.0 ml/min Estimated GFR () 51.2 Estimated GFR (Non- 44.2 BUN/Creatinine Ratio 21.8 Random Glucose 99 mg/dl Calcium Level 9.2 mg/dl Magnesium Level 2.2 mg/dl Total Bilirubin 0.6 mg/dl Direct Bilirubin 0.1 mg/dl Aspartate Amino Transf (AST/SGOT) 30 U/L Alanine Aminotransferase (ALT/SGPT) 329 U/L Alkaline Phosphatase 86 U/L Total Protein 8.0 gm/dl Albumin 4.1 gm/dl Assessment and Plan 76-year-old white female admitted on July 05, 2017 because of palpitation and tachycardia Palpitations, PAT, chest pain: - Admit to tele for cardiac monitoring- NSR w/ episodes of tachycardia - Cardiac enzymes- peak trop at 0.052 - Stress test pending - ECHO- preserved EF, grade II diastolic dysfunction, no wall abnormalities - CTA negative for PE - ASA 81 mg daily, continue Lipitor - hgbA1c 5.6%; lipid panel reviewed; TSH 3.3 - Cardiology consulted, appreciate recommendations- change Atenolol 25 mg daily to Cardizem 120 mg daily, obtain stress test HTN: Atenolol to Cardizem as above HLD: Continue Lipitor Elevated LFTs: - Trending LFTs- trending down - Acetaminophen <1 - Hepatitis panel negative - RUQ US- w/out acute findings h/o anxiety, insomnia, fibromyalgia: Continue Effexor, Xanax PRN, Gabapentin, Trazodone CKD stage III- STABLE DVT prophylaxis: Lovenox SQ daily Code status: LEVEL I, FULL Dispo: Discharge to home once medically stable- likely tomorrow- PT/OT and CM following
[2017-07-08] MEDS ORDERED: DILTIAZEM HCL 120 MG ER CAP PO ONE (15:45)
[2017-07-08] MEDS ORDERED: COUGH DROP (SUGAR FREE) LOZ 24 LOZ/1 BOX LOZ ONE (15:46)
--- NOTE | 2017-07-08 16:40 | DOBUTAMINE ECHO ---
*NOTICE TO RECEIVING [employer] This information is strictly Confidential and protected under [place] law. [place] law prohibits you from making any further disclosure of this information unless further disclosure is expressly permitted by the written consent of the person to whom it pertains or is authorized by law. A general authorization for the release of medical or other information is not sufficient for this purpose. Hospital accepts no responsibility if the information is made available to any other person, INCLUDING THE PATIENT. Interpretation Summary * Name: BLANCA SAEZ Study Date: 07/08/2017 09:31 AM BP: 126/62 mmHg * Patient Location: .2T\S\S241\S\1 HR: 65 * : 1940 (M/d/yyyy) Gender: Female Height: 64 in * Age: 76 yrs Ethnicity: CA Weight: 131 lb * Ordering Physician: Tra Sorto * Referring Physician: Loyd Bustillos * Performed By: Mandi Sousa RDCS * * Reason For Study: Chest pain, dyspnea on exertion * BSA: 1.6 m2 * -- Conclusions -- * 1. Negative dobutamine stress echo for ischemia at 77% MPHR. * 2. Negative dobutamine stress ECG for ischemia. * 3. Normal resting LV size and function. See prior echo report from 07/06/2017 for further details. Procedure Details * DOBUTAMINE ECHO, CPT#40544 * A contrast injection of Definity was performed to improve assessment of LV function. * Contrast was injected into an intravenous site in the right arm. * One vial of Definity ultrasound contrast was diluted in normal saline to a total volume of 10 ml. A total of '4' ml of solution was administered during imaging. * Lot # [id number] of Definity utilized for procedure. * Expiration date 1 APR 22. * The attending nurse who injected the contrast agent was Allie Mcneil RN. Left Ventricular Findings with Stress * This was essentially a normal study. Left Ventricle * The left ventricle is grossly normal size. * There is borderline concentric left ventricular hypertrophy. * Ejection Fraction = 65-70%. * Resting wall motion: Normal. Stress wall motion: Appropriate increase in Left ventricular systolic function and decrease in cavity size. No stress induced segmental wall motion abnormalities. Pericardium * There is no pericardial effusion. Stress Parameters * Normal baseline electrocardiogram. * Stress ECG: No ST changes. No arrhythmias. * Rest heart rate was '65' BPM. * Rest blood pressure was '126/62' * Maximum heart rate achieved was 112 bpm. * Maximum heart rate was 77 % of maximum age-predicted heart rate. * Maximum blood pressure was '126/67' * Maximum Dobutamine infusion rate was '50' mcg/kg/min. * A total of 2 mg of intravenous Atropine was used to supplement Dobutamine for heart rate response. * Dobutamine infusion was terminated due to end of protocol/maximum medication doses * A total of 5 mg of IV Metoprolol was administered to reverse Dobutamine-induced tachycardia. * The patient did not exhibit any symptoms during drug infusion. Left Ventricular Findings with Stress * The study was technically good with many images being of high quality. MMode 2D Measurements and Calculations IVSd 0.55 cm LVIDd 4.5 cm LVIDs 2.7 cm LVPWd 0.80 cm IVS/LVPW 0.68 FS 39.2 % EDV(Teich) 91.2 ml ESV(Teich) 27.5 ml EF(Teich) 69.9 % EDV(cubed) 89.5 ml ESV(cubed) 20.1 ml EF(cubed) 77.6 % LV mass(C)d 90.1 grams LV mass(C)dI 55.2 grams/m\S\2 SV(Teich) 63.7 ml SI(Teich) 39.0 ml/m\S\2 SV(cubed) 69.4 ml SI(cubed) 42.5 ml/m\S\2 LVAd ap4 22.6 cm\S\2 LVLd ap4 6.7 cm EDV(MOD-sp4) 64.0 ml EDV(sp4-el) 65.0 ml LVAs ap4 11.6 cm\S\2 LVLs ap4 5.2 cm ESV(MOD-sp4) 23.4 ml ESV(sp4-el) 22.0 ml EF(MOD-sp4) 63.5 % EF(sp4-el) 66.1 % LVAd ap2 17.4 cm\S\2 LVLd ap2 6.1 cm EDV(MOD-sp2) 42.5 ml EDV(sp2-el) 42.2 ml LVAs ap2 9.1 cm\S\2 LVLs ap2 4.7 cm ESV(MOD-sp2) 14.5 ml ESV(sp2-el) 14.9 ml EF(MOD-sp2) 65.8 % EF(sp2-el) 64.7 % LVLd %diff -9.88 % EDV(MOD-bp) 55.1 ml LVLs %diff -10.49 % ESV(MOD-bp) 19.2 ml EF(MOD-bp) 65.1 % SV(MOD-sp4) 40.6 ml SI(MOD-sp4) 24.9 ml/m\S\2 SV(MOD-sp2) 28.0 ml SI(MOD-sp2) 17.1 ml/m\S\2 SV(MOD-bp) 35.9 ml SI(MOD-bp) 21.9 ml/m\S\2 SV(sp4-el) 42.9 ml SI(sp4-el) 26.3 ml/m\S\2 SV(sp2-el) 27.3 ml SI(sp2-el) 16.7 ml/m\S\2
[2017-07-08] MEDS ORDERED: NURSING VERBAL MED ORDER ONE (17:45)
[2017-07-08] MEDS ORDERED: ALPRAZOLAM 0.25 MG TAB PO PRN (18:00)
[2017-07-08] MEDS: TRAZODONE HCL 50 MG TAB PO SCH (22:00)
[2017-07-09] VITALS (7 sets, daily range): BP systolic 100–111; BP diastolic 53–54; PULSE 50–56; TEMP 36.3–36.6; O2SAT 96–97
[2017-07-09] MEDS ORDERED: DILTIAZEM HCL 120 MG ER CAP PO SCH (09:00)
[2017-07-09] MEDS: CALCITRIOL 0.25 MCG CAP PO SCH (09:05)
[2017-07-09] MEDS: ASPIRIN 81 MG CHEW PO SCH (09:05)
[2017-07-09] MEDS: VENLAFAXINE HCL 50 MG TAB PO SCH (09:05)
[2017-07-09] MEDS: GABAPENTIN 400 MG CAP PO PRN (09:05)
[2017-07-09] MEDS: ENOXAPARIN 40 MG/0.4 ML SYR SC SCH (09:09)
--- NOTE | 2017-07-09 09:55 | Cardiology Follow-Up ---
Subjective Date of Service: July 09, 2017. Pt evaluation today including: conversation w/ patient, physical exam, lab review, review of studies, review of inpatient medication list History of Present Illness This is a very pleasant 76-year-old woman who has a long history of chest discomfort and palpitations. Her chest discomfort was evaluated in the past, in 2009 she had a cardiac catheterization (a dobutamine stress test earlier was negative but she had persistent symptoms of exertional jaw and neck discomfort) . The catheterization showed no coronary artery disease. She also describes a long history of intermittent palpitations but they are infrequent, she had an episode 15 or 20 years ago where she felt her heart beating rapidly for 45 minutes to an hour, she had it in toward the hospital but the symptoms resolved before she got here. She also had an episode of these similar symptoms of palpitations on July 05, 2017, they lasted for about 2 hours or more this time and she took her blood pressure and her heart rate on her blood pressure machine was as high as 135. When the symptoms persisted she came into the emergency room, however before she was evaluated here the symptoms had resolved. She also describes discomfort occurring after the onset of the palpitations, this included an epigastric discomfort with radiation to her neck and her jaw and sound suspicious for angina. That resolved with resolution of the tachycardia, however her enzymes were borderline elevated just after arrival and then dropped back to normal quickly. Electrocardiography did not show any acute changes, but she does have persistent nonspecific ST-T abnormalities. She also describes exertional symptoms which are little worrisome, she describes an inability to walk more than a block or 2 at times, she does not get the same type of discomfort that she described with the tachycardia but she has to stop and rest because she feels uncomfortable. She does not have palpitations typically with these and she has had brief episodes of PAT her in the hospital of which she was unaware. She also had elevated liver function tests on admission which have improved. She felt that she could not walk on a treadmill therefore a dobutamine stress echo was done yesterday which was negative for ischemia. Today she feels well, she has had no further palpitations and has no chest discomfort. She does tell me that she feels somewhat weak since this happened. Social History Smoking Status: Unknown if Ever Smoked History of Alcohol Use: No Review of Systems Respiratory: + see HPI, No cough, No sputum, No wheezing, No shortness of breath, No dyspnea at rest, No hemoptysis Cardiac: + see HPI, No orthopnea, No PND, No edema, No claudication Medications Cardiovascular: Item Value Date Time Diltiazem HCl 120 mg 07/09/17899 (Dilacor Xr Cap) QAM/PO 07/09/17904 Enoxaparin Sodium 40 mg 07/06/17899 (Lovenox Inj) Q24H/SC 07/09/17908 Aspirin 81 mg 07/06/17899 (Aspirin Chew) QAM/PO 07/09/17904 Objective Vital Signs Past 12 Hours Date Time Temp Pulse Resp B/P (MAP) Pulse Ox O2 Delivery O2 Flow Rate FiO2 07/09/17 08:00 96 Room Air 07/09/17 06:45 36.6 52 16 102/54 (70) 96 Room Air 07/09/17 04:27 36.3 56 22 111/53 (72) 96 Room Air 07/09/17 04:00 96 Room Air 07/09/17 00:06 36.4 50 17 100/53 (69) 97 Room Air 07/09/17 00:00 97 Room Air Last Recorded Weight-Kilograms: 58.600 Physical Exam Constitutional: General Apperance: heathly-appearing Level of Distress: NAD Lungs: Respiratory effort: no dyspnea, good air movement Auscultation: breath sounds normal, no wheezing Cardiovascular: Heart Auscultation: RRR, no murmurs, no rubs, no gallops Peripheral Pulses: Bruits: none appreciated Extremities: no edema Data Telemetry reviewed: Sinus rhythm overnight, no PAT. She did have an episode of PAT at 1933 last evening Assessment and Plan 1. Palpitations: She has a history of intermittent palpitations but these are very rare, she can only recall 2 episodes that she felt, one perhaps 20 years ago and one that brought her into the hospital. The heart rate by her measurement varied somewhat but the maximum was about 135 bpm on this presentation, however it resolved before she got in so I do not know what that rhythm was. With the infrequency of episodes would be difficult to record. 2. PAT: Here in the hospital she has had what appears to be an atrial tachycardia with a similar heart rate to which she describes preadmission but not sustained. The most likely is that she had a sustained similar arrhythmia prior to admission, but I cannot exclude the possibility of some other type of arrhythmia such as a reentrant SVT. She did not feel the ones in the hospital, but they did not last long enough perhaps for her to become aware of. She was on atenolol for hypertension, we switched to diltiazem from atenolol, her first dose of diltiazem was this morning. I would recommend continuing the current dose, we can certainly go up if needed. 3. Chest discomfort: She had chest discomfort which was anginal in character and despite her negative catheterization in 2009 she did have a slight enzyme bump but her stress test was negative for ischemia. I cannot exclude minor coronary disease but it was not evident with pharmacologic stress testing and therefore I would not pursue further evaluation. From my standpoint she can go home, I will arrange outpatient follow-up for 1 month. Thank you for allowing me to participate in her care.
[2017-07-09] MEDS ORDERED: DLCSR120 PO (11:24)
--- NOTE | 2017-07-09 11:27 | Discharge Instructions ---
Discharge Instructions Date of Service July 09, 2017. Admission Reason for Admission: Palpitations, Substernal Chest Pain Discharge Discharge Diagnosis / Problem: paroxysmal atrial tachycardia Discharge Goals Goal(s): Decrease discomfort, Improve function, Increase independence, Improve disease control, Learn about illness, Diagnostic testing, Therapeutic intervention, Prevent Disease Progression Activity Recommendations Activity Limitations: resume your previous activity . Instructions / Follow-Up Instructions / Follow-Up New/changed medications: 1. STOP: Atenolol 25 mg daily 2. NEW: Diltiazem 120 mg daily *The changes in your medication was to help control your heart rate from going too fast. Resume all other regular home medications as prescribed FOLLOW-UPS: Please follow-up with your PCP within 5-7 days Please follow-up with Cardiology, Dr. Sorto within 1 month Please follow-up/keep all of your subspecialty appointments Current Hospital Diet Patient's current hospital diet: AHA Diet (Heart Healthy) Discharge Diet Recommended Diet: AHA Diet (Heart Healthy) Pending Studies Studies pending at discharge: no Laboratory Results Hemoglobin A1c Test 07/06/17 05:08 Range/Units Estimated Average Glucose 114 mg/dl Hemoglobin A1c 5.6 4.5-5.6 % Lipid Panel Test 07/06/17 05:08 Range/Units Triglycerides Level 124 0-150 mg/dl Cholesterol Level 179 0-200 mg/dl HDL Cholesterol 68 mg/dl Cholesterol/HDL Ratio 2.6 LDL Cholesterol, Calculated 86 mg/dl Medical Emergencies . Who to Call and When: Medical Emergencies: If at any time you feel your situation is an emergency, please call 911 immediately. . Non-Emergent Contact Non-Emergency issues call your: Primary Care Provider, Hand Stamper Call Non-Emergent contact if: you have any medication questions . . "Provider Documentation" section prepared by Mariajose Atwood. .
--- NOTE | 2017-07-09 11:35 | Discharge Summary ---
Discharge Summary Date of Service July 09, 2017. Discharge Summary Admission Date: July 07, 2017 at 12:44 Discharge Date: July 09, 2017 Discharge Disposition: Home Principal Diagnosis: PAT Problems/Secondary Diagnoses: Palpitations, PAT chest pain grade II diastolic dysfunction HTN HLD Elevated LFTs h/o anxiety insomnia fibromyalgia CKD stage III Immunizations: Have You Had Influenza Vaccine: N/A History of Tetanus Vaccine?: No History of Pneumococcal: Yes History of Hepatitis B Vaccine: No Procedures: CHEST ONE VIEW PORTABLE HISTORY: 76 years-old Female EVALUATE WEAKNESS acute weakness COMPARISON: Chest radiograph 12/31/2014 TECHNIQUE: Portable AP view of the chest FINDINGS: Cardiac silhouette is mildly enlarged. Minimal subsegmental bibasilar atelectasis redemonstrated without pneumothorax, pleural effusion, focal airspace consolidation or overt pulmonary edema. Degenerative changes of the shoulders and spine. The bones appear grossly intact. IMPRESSION: No acute process. The above report was generated using voice recognition software. It may contain grammatical, syntax or spelling errors. Electronically signed by: Ja Rivas M.D. 07/05/2017 6:20 PM Dictated Date/Time: 07/05/2017 6:18 PM The status of this report is Signed. Draft = Not yet reviewed or approved by Radiologist. Signed = Reviewed and approved by Radiologist ABDOMEN AND PELVIS CT WITHOUT CONTRAST CT DOSE: 272.41 mGy.cm HISTORY: Acute heart palpitations with abnormal liver function tests abnormal lft's TECHNIQUE: Multiaxial CT images of the abdomen and pelvis were performed without contrast. A dose lowering technique was utilized adhering to the principles of ALARA. COMPARISON STUDY: CT abdomen and pelvis 12/29/2014. FINDINGS: Mild bibasilar subsegmental atelectasis/scarring. There is no pneumatosis or pneumoperitoneum identified. The mentioned appear cardiac chambers are mildly enlarged. Evaluation of the solid abdominal organs is limited without the use of IV contrast. The liver, gallbladder, pancreas and adrenal glands are within normal limits. Linear calcifications are seen throughout the spleen. 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 Mild cortical scarring of the inferior pole left kidney. No renal calculi or obstructive uropathy. Ureters and bladder are unremarkable. Prior hysterectomy. No adnexal mass lesions. Phleboliths of the pelvis are noted. Mild tortuosity and atherosclerosis of the aorta without aneurysm. No bulky adenopathy. No bowel obstruction or focal bowel wall thickening. Colonic diverticulosis without CT evidence of acute diverticulitis. Moderate stool volume throughout the colon. Appendix is not definitively seen and may be surgically absent. Soft tissues are unremarkable. The bones appear mildly demineralized. Dextroscoliosis of the mid lumbar spine. Bones appear intact. IMPRESSION: 1. No acute intra-abdominal or intrapelvic abnormality identified. 2. Moderate stool volume throughout the colon suggests constipation. 3. Colonic diverticulosis without diverticulitis. 4. 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 5. Prior hysterectomy. Electronically signed by: Ja Rivas M.D. 07/05/2017 8:30 PM Dictated Date/Time: 07/05/2017 8:20 PM The status of this report is Signed. Draft = Not yet reviewed or approved by Radiologist. Signed = Reviewed and approved by Radiologist (CHEST FOR PE) ANGIO WITH CT DOSE: 224.87 mGy.cm HISTORY: 76 years-old Female presents with acute chest pain and cardiac palpitations TECHNIQUE: Multiple CTA images of the chest were obtained after the intravenous administration of 95 ml Optiray 320. Coronal and sagittal MIPS were obtained from the axial data set and were submitted for review. A dose lowering technique was utilized adhering to the principles of ALARA. COMPARISON: Chest CT 08/08/2006. FINDINGS: CTA: Heart is normal in size without pericardial effusion. Coronary arterial calcifications are noted. Thoracic aorta is normal in course and caliber without aneurysm or dissection. The imaged great vessels appear patent. The pulmonary arterial tree is opacified to the level of the distal segmental branches. The subsegmental branches are suboptimally evaluated secondary to respiratory motion and contrast bolus timing. No focal filling defects identified to suggest pulmonary thromboembolic disease. CT CHEST: No dominant thyroid nodule or pathologic adenopathy identified. No pneumothorax, pleural effusion, focal airspace consolidation or overt pulmonary edema. 7 mm groundglass opacity is noted within the dependent left upper lobe on image 194 series 4. There is mild dependent groundglass opacities compatible with atelectasis. 3 mm solid nodule of the left lower lobe, image 39 series 4, likely benign. Mild biapical pleural-parenchymal scarring. Evaluation of the lung bases is limited secondary to respiratory motion. Central airways are patent. No acute process of the imaged upper abdomen. Soft tissues are unremarkable. Bones appear intact. Multilevel endplate spurring about the spine. IMPRESSION: 1. No acute intrathoracic evaluate identified, specifically no acute aortic pathology or evidence of pulmonary thromboembolic disease. 2. Minimal dependent subsegmental bibasilar atelectasis with 7 mm ground glass opacity of the left upper lobe also favoring atelectasis or scarring. 3. No pathologic adenopathy or focal airspace consolidation. The above report was generated using voice recognition software. It may contain grammatical, syntax or spelling errors. Electronically signed by: Ja Rivas M.D. 07/07/2017 1:24 PM Dictated Date/Time: 07/07/2017 1:17 PM The status of this report is Signed. Draft = Not yet reviewed or approved by Radiologist. Signed = Reviewed and approved by Radiologist ABDOMINAL ULTRASOUND, RIGHT UPPER QUADRANT HISTORY: Right upper quadrant pain, gallbladder and liver/ biliary tract. COMPARISON: Abdomen and pelvis CT 07/05/2017. FINDINGS: Pancreas: The pancreas demonstrates a normal echotexture. Liver: Unremarkable. Gallbladder: No gallbladder wall thickening. No gallstones. CBD: 6 mm. Right kidney: No hydronephrosis. IMPRESSION: No significant abnormality identified within the right upper quadrant. Electronically signed by: Hiren Campbell M.D. 07/08/2017 8:20 AM Dictated Date/Time: 07/08/2017 8:19 AM The status of this report is Signed. Draft = Not yet reviewed or approved by Radiologist. Signed = Reviewed and approved by Radiologist DUB STRESS: Interpretation Summary * Name: BLANCA SAEZ Study Date: 07/08/2017 09:31 AM BP: 126/62 mmHg * Patient Location: [facility]\S\1 HR: 65 * : 1940 (M/d/yyyy) Gender: Female Height: 64 in * Age: 76 yrs Ethnicity: CA Weight: 131 lb * Ordering Physician: Tra Sorto * Referring Physician: Loyd Bustillos * Performed By: Mandi Sousa RDCS * * Reason For Study: Chest pain, dyspnea on exertion * BSA: 1.6 m2 * -- Conclusions -- * 1. Negative dobutamine stress echo for ischemia at 77% MPHR. * 2. Negative dobutamine stress ECG for ischemia. * 3. Normal resting LV size and function. See prior echo report from 2017 for further details. Procedure Details * DOBUTAMINE ECHO, CPT#22726 * A contrast injection of Definity was performed to improve assessment of LV function. * Contrast was injected into an intravenous site in the right arm. * One vial of Definity ultrasound contrast was diluted in normal saline to a total volume of 10 ml. A total of '4' ml of solution was administered during imaging. * Lot # [id number] of Definity utilized for procedure. * Expiration date APR 22. * The attending nurse who injected the contrast agent was Allie Mcneil RN. Left Ventricular Findings with Stress * This was essentially a normal study. Left Ventricle * The left ventricle is grossly normal size. * There is borderline concentric left ventricular hypertrophy. * Ejection Fraction = 65-70%. * Resting wall motion: Normal. Stress wall motion: Appropriate increase in Left ventricular systolic function and decrease in cavity size. No stress induced segmental wall motion abnormalities. Pericardium * There is no pericardial effusion. Stress Parameters * Normal baseline electrocardiogram. * Stress ECG: No ST changes. No arrhythmias. * Rest heart rate was '65' BPM. * Rest blood pressure was '126/62' * Maximum heart rate achieved was 112 bpm. * Maximum heart rate was 77 % of maximum age-predicted heart rate. * Maximum blood pressure was '126/67' * Maximum Dobutamine infusion rate was '50' mcg/kg/min. * A total of 2 mg of intravenous Atropine was used to supplement Dobutamine for heart rate response. * Dobutamine infusion was terminated due to end of protocol/maximum medication doses * A total of 5 mg of IV Metoprolol was administered to reverse Dobutamine- induced tachycardia. * The patient did not exhibit any symptoms during drug infusion. Left Ventricular Findings with Stress * The study was technically good with many images being of high quality. ECHO: Interpretation Summary * Name: BLANCA SAEZ Study Date: 07/06/2017 07:15 AM BP: 155/82 mmHg * Patient Location: [facility]\S\S241\S\1 HR: 61 * : 1940 (M/d/yyyy) Gender: Female Height: 60 in * Age: 76 yrs Ethnicity: [place] Weight: 134 lb * Ordering Physician: Maximus Herrera * Referring Physician: Loyd Bustillos * Performed By: Donna Lassiter RDCS * * Reason For Study: CHEST PAIN * BSA: 1.6 m2 * -- Conclusions -- * Left ventricular systolic function is normal. * No regional wall motion abnormalities noted. * Ejection Fraction = 60-65%. * There is borderline concentric left ventricular hypertrophy. * Diastolic dysfunction, Grade II (pseudonormalization pattern). * There is mild mitral regurgitation. Procedure Details * A complete two-dimensional transthoracic echocardiogram was performed (2D, M- mode, Doppler and color flow Doppler). Left Ventricle * The left ventricle is normal in size. * There is borderline concentric left ventricular hypertrophy. * Ejection Fraction = 60-65%. * Left ventricular systolic function is normal. * No regional wall motion abnormalities noted. Right Ventricle * The right ventricle is not well visualized. * The right ventricular systolic function is normal as assessed by tricuspid annular plane systolic excursion (TAPSE) (normal >1.5 cm). Atria * The left atrium is mildly dilated. * Right atrium not well visualized. * Lipomatous hypertrophy of the interatrial septum is noted. Mitral Valve * The mitral valve is grossly normal. * There is mild mitral regurgitation. Tricuspid Valve * The tricuspid valve is not well visualized, but is grossly normal. * There is no tricuspid stenosis. * Significant tricuspid regurgitation is absent. Aortic Valve * The aortic valve is not well visualized. * The aortic valve opens well. * No hemodynamically significant valvular aortic stenosis. * There is no significant aortic regurgitation. Pulmonic Valve * The pulmonary valve is not well seen, but the Doppler examination is normal without significant regurgitation or stenosis. Great Vessels * The aortic root is normal size. * The pulmonary is not well visualized. Pericardium/Pleural * There is no pericardial effusion. Great Vessels * Normal inferior vena cava size and collapsability with sniff indicates a normal right atrial pressure of 3 mmHg Left Ventricular Diastolic Function * Diastolic dysfunction, Grade II (pseudonormalization pattern). Consultations: Cardiology- Dr. Sorto Medication Reconciliation New Medications: Diltiazem HCl (Diltiazem HCl ER) 120 Mg Caper 120 MG PO QAM for 30 Days, #30 CAP Continued Medications: Alprazolam (Xanax) 0.25 Mg Tab 1 TAB PO Q6 PRN for Anxiety for 30 Days, #120 TAB Aspirin (Aspirin Chewable) 81 Mg Chew 81 MG PO QAM Atorvastatin (Lipitor) 20 Mg Tab 20 MG PO QPM, TAB Calcitriol (Rocaltrol Cap) 0.25 Mcg Cap 0.25 MCG PO QAM, CAP Cyanocobalamin (Vitamin B12) Unknown Strength Tab 1 TAB PO DAILY Gabapentin (Neurontin) 400 Mg Cap 400 MG PO HS PRN for Pain, CAP Multiple Vitamins W/ Minerals (Preservision Areds) 1 Cap Cap 1 CAP DAILY Trazodone Hcl (Trazodone) 50 Mg Tab 50 MG PO HS, TAB Venlafaxine Hcl (Effexor) 75 Mg Tab 2 TAB PO QAM, TAB Discontinued Medications: Atenolol (Tenormin) 25 Mg Tab 25 MG PO DAILY, TAB Referrals At Discharge Follow up Referrals: Dumpling Machine Operator Referral - Within a Month with Tra Sorto M.D. Family Practice Referral - Within 1 Week with Loyd Bustillos M.D. Discharge Exam Review of Systems: Constitutional: No fever, No chills, No sweats, No weakness, No fatigue Eyes: No worsening of vision ENT: No hearing loss Respiratory: No cough, No shortness of breath, No hemoptysis Cardiovascular: No chest pain, No edema, No palpitations Abdomen: No pain, No nausea, No vomiting, No diarrhea, No constipation, No GI bleeding Musculoskeletal: No joint pain, No muscle pain, No swelling, No calf pain Genitourinary - Female: No dysuria, No hematuria Neurologic: No weakness, No numbness/tingling Psychiatric: No depression symptoms Endocrine: No fatigue Hematologic / Lymphatic: No abnormal bleeding/bruising Integumentary: No rash, No itch, No new/changing skin lesions Physical Exam: General Appearance: no apparent distress Eyes: normal inspection, PERRL ENT: hearing grossly normal Neck: supple Respiratory/Chest: lungs clear, no respiratory distress, no accessory muscle use Cardiovascular: regular rate, rhythm Abdomen / GI: normal bowel sounds, non tender, soft Extremities: no calf tenderness, no pedal edema Neurologic/Psychiatric: alert, normal mood/affect, oriented x 3 Skin: normal color, warm/dry, no rash Hospital Course 76-year-old white female admitted on July 05, 2017 because of palpitation and tachycardia Palpitations, PAT, chest pain: - Admit to tele for cardiac monitoring- NSR w/ episodes of tachycardia - Cardiac enzymes- peak trop at 0.052 - Stress test- negative for ischemic changes - ECHO- preserved EF, grade II diastolic dysfunction, no wall abnormalities - CTA negative for PE - ASA 81 mg daily, continue Lipitor - hgbA1c 5.6%; lipid panel reviewed; TSH 3.3 - Cardiology consulted, appreciate recommendations- change Atenolol 25 mg daily to Cardizem 120 mg daily HTN: Atenolol to Cardizem as above HLD: Held Lipitor due to elevated LFT- resume at discharge Elevated LFTs: - Trending LFTs- trending down - Acetaminophen <1 - Hepatitis panel negative - RUQ US- w/out acute findings h/o anxiety, insomnia, fibromyalgia: Continue Effexor, Xanax PRN, Gabapentin, Trazodone CKD stage III- STABLE DVT prophylaxis: Lovenox SQ daily Code status: LEVEL I, FULL Dispo: Discharge to home Total Time Spent: Greater than 30 minutes This includes examination of the patient, discharge planning, medication reconciliation, and communication with other providers. Discharge Instructions Please refer to the electronic Patient Visit Report (Discharge Instructions) for additional information. Follow-Up Please follow-up with your PCP within 5-7 days Please follow-up with Dr. Sorto within 1 month Please follow-up/keep all of your subspecialty appointments Additional Copies To Loyd Bustillos M.D.
== END 2017-07-09 12:50 | disposition home or self-care (01) | DRG 313 ==
LOC: C.EDB 17:30 → C.2T 21:03 → ENRESERV 21:11 → OBSVTOIN 07-07 12:44 → C.2E 07-08 20:12
PROVIDERS: ADMIT Hospitalist; ATTEND Hospitalist
DX: R07.89 Other chest pain (principal); R00.2 Palpitations; Z82.49 Family history of ischemic heart disease and other diseases of the circulatory system; Z79.82 Long term (current) use of aspirin; E78.5 Hyperlipidemia, unspecified; E53.8 Deficiency of other specified B group vitamins; F41.8 Other specified anxiety disorders; G47.00 Insomnia, unspecified; I10 Essential (primary) hypertension; M79.7 Fibromyalgia; N18.3 Chronic kidney disease, stage 3 (moderate)

== ENCOUNTER → 2017-07-15 | Outpatient (CLI) | payer OTHER, MEDICARE ==
[~2017-07-15] MED LIST changes: -ATEN50TA8 PO; +CYAN100020 PO; +DLCSR120 PO; +GABA-1220 PO; -GABA800T PO; +MULTCAP33
[2017-07-15 16:58] LABS: ALBUMIN 3.9 gm/dl (3.4-5.0); ALT/SGPT 77 U/L (12-78); AST/SGOT 26 U/L (15-37); BLOOD UREA NITROGEN 21 mg/dl (7-18); CALCIUM 8.9 mg/dl (8.5-10.1); CARBON DIOXIDE 27 mmol/L (21-32); CREATININE 1.07 mg/dl (0.60-1.20); GLUCOSE 100 mg/dl (70-99); SODIUM 138 mmol/L (136-145)
[2017-07-15 17:01] LABS: ALKALINE PHOSPHATASE 68 U/L (45-117); TOTAL PROTEIN 7.3 gm/dl (6.4-8.2)
== END | disposition home or self-care (01) ==
LOC: C.LABPBG 11:46
PROVIDERS: ATTEND Internal Medicine
DX: R74.8 Abnormal levels of other serum enzymes (principal)

== ENCOUNTER 2017-09-27 09:25 | Emergency (ER) | payer OTHER, MEDICARE ==
[~2017-09-27] VITALS: Ht 162.6 cm; Wt 60.1 kg
[2017-09-27 09:28] VITALS: TEMP 36.7; Ht 162.6 cm; Wt 60.1 kg
[2017-09-27] MEDS ORDERED: ASPIRIN 81 MG CHEW PO STA (09:53)
[2017-09-27] MEDS ORDERED: NITROGLYCERIN 0.4 MG SL PER TAB CHARGE SL PRN (10:00)
[2017-09-27 10:09] LABS: BASO % 0.4 %; BASO ABS # 0.02 K/uL (0-0.2); EOS % 2.1 %; HEMATOCRIT 38.5 % (37-47); HEMOGLOBIN 12.8 g/dL (12.0-16.0); IG# 0.01 K/uL (0.00-0.02); LYMPH % 15.8 %; LYMPH ABS # 0.76 K/uL (1.2-3.4); MEAN CELL VOLUME 94.1 fL (80-100); MEAN CORPUSCULAR HEMOGLOBIN 31.3 pg (25-34); MEAN CORPUSCULAR HGB CONC 33.2 g/dl (32-36); MEAN PLATELET VOLUME 11.9 fL (7.4-10.4); MONO % 8.1 %; MONO ABS # 0.39 K/uL (0.11-0.59); NEUT % 73.4 %; NEUT ABS # 3.52 K/uL (1.4-6.5); PLATELET COUNT 149 K/uL (130-400); RED CELL DISTRIBUTION WIDTH CV 12.6 % (11.5-14.5); RED CELL DISTRIBUTION WIDTH SD 43.2 fL (36.4-46.3)
--- NOTE | 2017-09-27 10:18 | DIAGNOSTIC IMAGING REPORT ---
CHEST ONE VIEW PORTABLE HISTORY: 76 years-old Female CHEST PAIN acute atypical chest pain with tachycardia and nausea COMPARISON: Chest radiograph 07/05/2017, CTA chest 07/07/2017 TECHNIQUE: Portable AP view of the chest FINDINGS: Cardiomediastinal and hilar silhouettes are within normal limits. There is no pneumothorax, pleural effusion or overt pulmonary edema. Subsegmental left basilar opacities favor atelectasis. Degenerative changes of the shoulders and spine. IMPRESSION: No acute process. The above report was generated using voice recognition software. It may contain grammatical, syntax or spelling errors. Electronically signed by: Ja Rivas M.D. 09/27/2017 10:17 AM Dictated Date/Time: 09/27/2017 10:16 AM
[2017-09-27 10:38] LABS: ALBUMIN 4.4 gm/dl (3.4-5.0); ALKALINE PHOSPHATASE 64 U/L (45-117); ALT/SGPT 18 U/L (12-78); AST/SGOT 23 U/L (15-37); BLOOD UREA NITROGEN 20 mg/dl (7-18); CALCIUM 9.6 mg/dl (8.5-10.1); CARBON DIOXIDE 26 mmol/L (21-32); CREATININE 1.13 mg/dl (0.60-1.20); GLUCOSE 120 mg/dl (70-99); LIPASE 202 U/L (73-393); POTASSIUM 4.1 mmol/L (3.5-5.1); SODIUM 137 mmol/L (136-145); TOTAL PROTEIN 7.7 gm/dl (6.4-8.2)
--- NOTE | 2017-09-27 10:40 | EMERGENCY ROOM VISIT NOTE ---
History Report prepared by Ana: Julianne Georges Under the Supervision of: Dr. Rashmi Clemente M.D. First contact with patient: 09:47 Chief Complaint: TACHYCARDIA Stated Complaint: RACING HEART, SWEATING, NAUSEA History of Present Illness The patient is a 76 year old female who presents to the Emergency Room with complaints of chest discomfort beginning last night. She describes her pain as tightness and pressure that worsens when she lifts her neck. The patient reports the pain does not radiate to her arms, but she is experiencing left back pain. She notes she is also experiencing cold sweats, nausea, feeling as though her heart is racing, and SOB. The patient denies any vomiting. She states she feels very anxious, and took a Xanax, which did not relieve her symptoms. The patient reports she was seen in the ED about 6 weeks ago for heart palpitations, and note her current symptoms feel similar to her symptoms at that time. She states she was given Xanax and Diltiazem at that time. The patient notes she continued taking Diltiazem for 5 weeks following this visit, prescribed by Dr. Nowak, and experienced Parkinson's-like symptoms the entire time she was on the medication. She states she was experiencing a foggy head, shaking, and trouble walking. The patient notes her PCP took her off Diltiazem and switched her to Metoprol 2 or 3 days ago. She denies any other recent medication changes or dosage chances. The patient reports a history of DVT when she had her third child and states she has IBS. She denies any leg swelling, recent travel, or history of thyroid problems. The patient notes she did not take aspirin this morning. Source of History: patient Onset: last night Position: chest Review of Systems See HPI for pertinent positives & negatives. A total of 10 systems reviewed and were otherwise negative. Past Medical & Surgical Medical Problems: (1) Appendectomy (2) Benign hypertension (3) Bowel obstruction (4) Hemorrhoid (5) History of - hysterectomy (6) IBS (irritable bowel syndrome) (7) Irritable Bowel Syndrome (8) Localized, secondary osteoarthritis of the shoulder region (9) Oophorectomy (10) Pneumonia (11) tachy, elevated tn Surgical Problems: (1) H/O: hysterectomy Family History FH: neurologic disorder FHx: anemia Heart disease Hypertension Kidney disease Kidney stones Lung disease Social History Smoking Status: Never Smoker Alcohol Use: none Drug Use: none Marital Status: Housing Status: lives alone Occupation Status: retired Current/Historical Medications Scheduled Aspirin (Aspirin Chewable), 81 MG PO QAM Atorvastatin (Lipitor), 20 MG PO QPM Calcitriol (Rocaltrol Cap), 0.25 MCG PO QAM Cyanocobalamin (Vitamin B12), 1 TAB PO DAILY Metoprolol Succinate (Toprol Xl), 25 MG PO QAM Multiple Vitamins W/ Minerals (Preservision Areds), 1 CAP DAILY Trazodone Hcl (Trazodone), 50 MG PO HS Venlafaxine Hcl (Effexor), 2 TAB PO QAM Scheduled PRN Alprazolam (Xanax), 0.25 MG PO Q6 PRN for Anxiety Gabapentin (Neurontin), 400 MG PO BID PRN for Pain Allergies Coded Allergies: Penicillins (Verified Allergy, Severe, RASH, 09/27/17) PT'S FATHER HAD ANAPHYLACTIC RXN Gluten Flour (Verified Allergy, Intermediate, GI SYMPTOMS, 09/27/17) Lactose Intolerance (GI) (Verified Allergy, Intermediate, GI SYMPTOMS, ) Sulfa Antibiotics (Verified Allergy, Intermediate, RASH, 09/27/17) Sulfamethoxazole (Verified Allergy, Intermediate, RASH, 09/27/17) Physical Exam Vital Signs Date Time Temp Pulse Resp B/P (MAP) Pulse Ox O2 Delivery O2 Flow Rate FiO2 09/27/17 14:00 66 18 120/67 99 09/27/17 10:25 68 18 120/67 99 Room Air 09/27/17 10:20 63 20 131/62 98 Room Air 09/27/17 10:07 98 Room Air 09/27/17 09:55 69 09/27/17 09:28 36.7 73 18 152/62 99 Room Air Physical Exam Vital signs reviewed. General: Well-appearing elderly woman, in no significant distress. HEENT: No scleral icterus, PERRLA, neck supple. Atraumatic. Cardiovascular: Regular rate and rhythm, no extra sounds. Pulmonary: Clear to auscultation bilaterally, normal work of breathing. Abdomen: Soft, nontender, nondistended, positive bowel sounds. Musculoskeletal: Atraumatic, no peripheral edema. Neurologic: Patient awake alert and oriented x 3, full strength in all 4 extremities. Cranial nerves 2 through 12 grossly intact. Skin: Warm, dry, no rash Medical Decision & Procedures ER Provider Diagnostic Interpretation: Radiology results as stated below per my review and radiologist interpretation: CHEST ONE VIEW PORTABLE HISTORY: 76 years-old Female CHEST PAIN acute atypical chest pain with tachycardia and nausea COMPARISON: Chest radiograph 07/05/2017, CTA chest 07/07/2017 TECHNIQUE: Portable AP view of the chest FINDINGS: Cardiomediastinal and hilar silhouettes are within normal limits. There is no pneumothorax, pleural effusion or overt pulmonary edema. Subsegmental left basilar opacities favor atelectasis. Degenerative changes of the shoulders and spine. IMPRESSION: No acute process. The above report was generated using voice recognition software. It may contain grammatical, syntax or spelling errors. Electronically signed by: Ja Rivas M.D. 09/27/2017 10:17 AM Dictated Date/Time: 09/27/2017 10:16 AM Laboratory Results 09/27/17 09:50 Red Blood Count 4.09, Mean Corpuscular Volume 94.1, Mean Corpuscular Hemoglobin 31.3, Mean Corpuscular Hemoglobin Concent 33.2, Mean Platelet Volume 11.9, Neutrophils (%) (Auto) 73.4, Lymphocytes (%) (Auto) 15.8, Monocytes (%) (Auto) 8.1, Eosinophils (%) (Auto) 2.1, Basophils (%) (Auto) 0.4, Neutrophils # (Auto) 3.52, Lymphocytes # (Auto) 0.76, Monocytes # (Auto) 0.39, Eosinophils # (Auto) 0.10, Basophils # (Auto) 0.02 09/27/17 09:50 Test 09/27/17 09:50 09/27/17 12:06 White Blood Count 4.80 K/uL (4.8-10.8) Red Blood Count 4.09 M/uL (4.2-5.4) Hemoglobin 12.8 g/dL (12.0-16.0) Hematocrit 38.5 % (37-47) Mean Corpuscular Volume 94.1 fL (80-100) Mean Corpuscular Hemoglobin 31.3 pg (25-34) Mean Corpuscular Hemoglobin Concent 33.2 g/dl (32-36) Platelet Count 149 K/uL (130-400) Mean Platelet Volume 11.9 fL (7.4-10.4) Neutrophils (%) (Auto) 73.4 % Lymphocytes (%) (Auto) 15.8 % Monocytes (%) (Auto) 8.1 % Eosinophils (%) (Auto) 2.1 % Basophils (%) (Auto) 0.4 % Neutrophils # (Auto) 3.52 K/uL (1.4-6.5) Lymphocytes # (Auto) 0.76 K/uL (1.2-3.4) Monocytes # (Auto) 0.39 K/uL (0.11-0.59) Eosinophils # (Auto) 0.10 K/uL (0-0.5) Basophils # (Auto) 0.02 K/uL (0-0.2) RDW Standard Deviation 43.2 fL (36.4-46.3) RDW Coefficient of Variation 12.6 % (11.5-14.5) Immature Granulocyte % (Auto) 0.2 % Immature Granulocyte # (Auto) 0.01 K/uL (0.00-0.02) D-Dimer 320 ug/L FEU (0-500) Anion Gap 6.0 mmol/L (3-11) Est Creatinine Clear Calc Drug Dose 37.2 ml/min Estimated GFR () 55.1 Estimated GFR (Non- 47.5 BUN/Creatinine Ratio 17.5 (10-20) Calcium Level 9.6 mg/dl (8.5-10.1) Magnesium Level 2.0 mg/dl (1.8-2.4) Total Bilirubin 0.3 mg/dl (0.2-1) Direct Bilirubin < 0.1 mg/dl (0-0.2) Aspartate Amino Transf (AST/SGOT) 23 U/L (15-37) Alanine Aminotransferase (ALT/SGPT) 18 U/L (12-78) Alkaline Phosphatase 64 U/L (45-117) Total Creatine Kinase 69 U/L (26-192) Troponin I 0.023 ng/ml (0-0.045) Total Protein 7.7 gm/dl (6.4-8.2) Albumin 4.4 gm/dl (3.4-5.0) Lipase 202 U/L (73-393) Thyroid Stimulating Hormone (TSH) 2.010 uIu/ml (0.300-4.500) Urine Color YELLOW Urine Appearance CLEAR (CLEAR) Urine pH 6.5 (4.5-7.5) Urine Specific [place] 1.015 (1.000-1.030) Urine Protein NEG (NEG) Urine Glucose (UA) NEG (NEG) Urine Ketones NEG (NEG) Urine Occult Blood NEG (NEG) Urine Nitrite NEG (NEG) Urine Bilirubin NEG (NEG) Urine Urobilinogen NEG (NEG) Urine Leukocyte Esterase NEG (NEG) Laboratory results per my review. Medications Administered Medications (Trade) Dose Ordered Sig/[place] Route Start Time Stop Time Status Last Admin Dose Admin Aspirin (Aspirin Chew) 324 mg NOW STAT PO 09/27/17 09:53 09/27/17 09:56 DC 09/27/17 10:20 324 MG Nitroglycerin (Nitrostat Tab) 0.4 mg Q5M PRN SL 09/27/17 10:00 09/27/17 18:21 DC 09/27/17 10:20 0.4 MG Alprazolam (Xanax Tab) 0.25 mg NOW STAT PO 09/27/17 13:23 09/27/17 13:25 DC 09/27/17 13:44 0.25 MG ECG Per My Interpretation Indication: chest pain Rate (beats per minute): 64 Rhythm: normal sinus Findings: no acute ischemic change, no ectopy ED Course 0951: Past medical records reviewed. The patient was evaluated in room B4B. A complete history and physical examination was performed. 0124: The patient is requesting anxiety medication. 0126: Upon reevaluation, the patient appeared to have improvement of her symptoms. I discussed findings with her. She verbalized agreement of the treatment plan. The patient was discharged home. Medical Decision Differential diagnosis: Acute coronary syndrome, pulmonary embolus, aortic dissection, musculoskeletal pain, pneumonia, pleural effusion, pneumothorax, anxiety This patient was evaluated and appeared to be in no significant distress. IV access was obtained and laboratory work was drawn. The patient was placed on the quality assurance monitor chassis and found to be in a normal sinus rhythm. EKG reveals no evidence of acute ischemic change or ectopy. Patient was given aspirin 324 mg to chew. Electrolytes are fairly unrevealing. Troponin is negative, d-dimer is negative. Chest x-ray is clear. The patient requested Xanax, she was given 0.5 mg orally. She was reassured regarding her findings. She states her doctor told her that the diltiazem "could be giving her Parkinson's." I did explain the difference between parkinsonian-like features and Parkinson's disease. The patient was reassured and advised to continue her metoprolol for her PAT diagnosed 2 months ago. She will follow up with her PCP and we did discuss the possibility of a counselor or psychiatric evaluation due to her anxiety. Patient has been seemed receptive to this and will speak with her primary provider. She will return to the ED for worsening of symptoms or any medical concerns. Medication Reconcilliation Current Medication List: was personally reviewed by me Blood Pressure Screening Patient's blood pressure: Normal blood pressure Blood pressure disposition: Did not require urgent referral Impression Primary Impression: Anxiety Additional Impression: Palpitations Scribe Attestation The scribe's documentation has been prepared under my direction and personally reviewed by me in its entirety. I confirm that the note above accurately reflects all work, treatment, procedures, and medical decision making performed by me. Departure Information Dispostion Home / Self-Care Referrals Loyd Bustillos M.D. (PCP) Forms HOME CARE DOCUMENTATION FORM, IMPORTANT VISIT INFORMATION, WORK / SCHOOL INSTRUCTIONS Patient Instructions My [facility] Additional Instructions Diagnosis: Dizzy Please continue medications as prescribed. Drink plenty of clear fluids. Follow-up with your primary care physician this week for reevaluation. Return to the ED for worsening of symptoms or any medical concerns. Problem Qualifiers
[2017-09-27] MEDS ORDERED: METO-478 PO (11:40)
[2017-09-27] MEDS ORDERED: ALPRAZOLAM 0.5 MG TAB PO STA (13:23)
[2017-09-27 14:00] VITALS: BP 120/67; PULSE 66; O2SAT 99
== END 2017-09-27 14:00 | disposition home or self-care (01) ==
LOC: C.EDB 09:27
DX: F41.9 Anxiety disorder, unspecified (principal); R00.2 Palpitations; R07.9 Chest pain, unspecified; R61 Generalized hyperhidrosis; M54.9 Dorsalgia, unspecified; R11.0 Nausea; R06.02 Shortness of breath; Z86.718 Personal history of other venous thrombosis and embolism; I10 Essential (primary) hypertension; K58.9 Irritable bowel syndrome, unspecified; Z79.82 Long term (current) use of aspirin; Z79.899 Other long term (current) drug therapy; Z88.0 Allergy status to penicillin; Z88.1 Allergy status to other antibiotic agents; Z88.2 Allergy status to sulfonamides; Z91.018 Allergy to other foods; E73.9 Lactose intolerance, unspecified

== ENCOUNTER 2018-11-23 11:07 | Inpatient (IN) ==
[2018-11-23] MEDS: HYDROmorphone INJ 0.5 MG/0.5 ML SYR IV PRN ×5 (11:48→23:16)
[2018-11-23 12:13] LABS: Basophils # (auto) 0.01 K/uL (0-0.2); Basophils % (auto) 0.3 %; Eosinophils # (auto) 0.06 K/uL (0-0.5); Eosinophils % (auto) 1.5 %; Hematocrit (blood only) 38.5 % (37-47); Hemoglobin 12.7 g/dL (12.0-16.0); Lymphocytes # (auto) 0.68 K/uL (1.2-3.4); Lymphocytes % (auto) 17.2 %; Mean Corpuscular Hemoglobin 31.7 pg (25-34); Mean Platelet Volume 11.2 fL (7.4-10.4); Monocytes % (auto) 7.6 %; Neutrophils # (auto) 2.91 K/uL (1.4-6.5); Neutrophils % (auto) 73.4 %; Platelet Count 134 K/uL (130-400); RDW Coefficient of Variation 13.5 % (11.5-14.5); RDW Standard Deviation 47.2 fL (36.4-46.3); Red Blood Count 4.01 M/uL (4.2-5.4); White Blood Count 3.96 K/uL (4.8-10.8)
[2018-11-23 12:29] LABS: Albumin Level 4.2 gm/dl (3.4-5.0); BUN Creatinine Ratio 11.9 (10-20); Calcium 9.3 mg/dl (8.5-10.1); Creatinine Clr Calc Pharmacy 37.7 ml/min; Est GFR (African American) 57.3; Est GFR (Non-African American) 49.5; Potassium 3.9 mmol/L (3.5-5.1)
[2018-11-23 12:32] LABS: Albumin Globulin Ratio 1.2 (0.9-2); Bilirubin,Total 0.2 mg/dl (0.2-1); Globulin 3.4 gm/dl (2.5-4.0); Total Protein 7.6 gm/dl (6.4-8.2)
--- NOTE | 2018-11-23 12:35 | CT Scan Report ---
CT lumbar spine wo con CLINICAL HISTORY: 78 years-old Female presenting with left-sided low back pain, injury while lifting a heavy object. TECHNIQUE: Multidetector CT of the lumbar spine was performed without the use of intravenous contrast . IV contrast: None. One or more dose lowering techniques were used consistent with the principles of ALARA (as low as reasonably achievable), including automatic exposure control, mA or kV adjustment t o individual patient size, and/or use of iterative reconstruction. COMPARISON: MR from 11/07/2016. CT DOSE (mGy.cm): The estimated cumulative dose is 312.90 mGycm. FINDINGS: Child And Family Services Specialist topogram: Unremarkable. Normal lumbar lordosis. Vertebral bodies maintain normal height and alignment. Intervertebral disc he ights demonstrate mild height loss at several levels. Disc bulges are noted at multiple levels most p rominently at L2-3, L3-4, and L5-S1. Mild effacement of the spinal canal, which is greatest at L2-3. No osseous spinal canal narrowing. No osseous neural foraminal narrowing though there is effacement o f the neural foramina secondary to the disc bulges greater on the left and notable at L2-3 and L3-4 t o a mild degree. No acute fracture or subluxation. Slight scoliotic curvature of the lumbar spine. Th ere is also slight rightward translocation of L3 on L4. Visualized portion of the sacrum intact. Para spinal musculature normal. Atherosclerosis noted. IMPRESSION: 1. No acute osseous injury of the lumbar spine. 2. Multilevel disc bulges with spinal canal narrowing to a mild degree greatest at L2-3. Soft tissue effacement of the neural foramina. Disc bulges greater on the left and notable at L2-3 and L3-4. Thi s is similar to the prior MR from 2017. Electronically signed by: Loyd Humphries M.D. 11/23/2018 12:34 PM
[2018-11-23] MEDS ORDERED: DEXAMETHASONE **PF** INJ 10 MG/ML VIAL IV ONE (13:02)
[2018-11-23 13:26] LABS: Appearance Urine Clear (Clear); Bilirubin Urine Negative (Negative); Blood Urine Negative (Negative); Color Urine Yellow; Glucose Urine UA Negative (Negative); Ketones Urine Negative (Negative); Leukocyte Esterase Urine Negative (Negative); Nitrite Urine Negative (Negative); Protein Urine Negative (Negative); Urobilinogen Urine Negative (Negative); pH Urine 7.5 (4.5-7.5)
[2018-11-23] MEDS ORDERED: ALPRAZolam 0.25 MG TABLET PO PRN (16:12)
[2018-11-23] MEDS ORDERED: ONDANSETRON INJ 2 MG/ML 2 ML VIAL IV PRN (16:25)
[2018-11-23] MEDS ORDERED: ACETAMINOPHEN 325 MG TAB PO PRN (16:25)
[2018-11-23] MEDS ORDERED: POLYETHYLENE (MIRALAX) 17 GM PACK PO PRN (16:25)
[2018-11-23] MEDS ORDERED: MAGNESIUM HYDROXIDE SUSP 30 ML UDC PO PRN (16:25)
[2018-11-23] MEDS ORDERED: ZOLPIDEM TARTRATE 5 MG TAB PO PRN (16:25)
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
--- NOTE | 2018-11-23 17:26 | Magnetic Resonance Report ---
MR lumbar spine wo con CLINICAL HISTORY: 78 years-old Female presenting with intractable low back pain. TECHNIQUE: Multisequence, multiplanar MR imaging of the lumbar spine was performed without the use of intravenous contrast. IV contrast: None. COMPARISON: 11/07/[address] of the lumbar spine performed earlier today. FINDINGS: Localizer images: Mild scoliosis of the lumbar spine. Slight straightening of normal lumbar lordosis. Vertebral bodies maintain normal height, alignment, a nd bone marrow signal intensity. Diffuse intervertebral disc desiccation and mild multilevel height l oss. Additional multilevel degenerative changes further detail below: L1-2: Mild disc bulge and mild facet arthropathy. Minimal effacement of the ventral thecal sac. No si gnificant neural foraminal narrowing. L2-3: Disc bulge and mild facet arthropathy. Mild effacement of the ventral thecal sac. Moderate effa cement of the left lateral recess. Mild left neural foraminal narrowing. Abutment of the exiting righ t L3 nerve root suspected. L3-4: Disc bulge, facet arthropathy, ligamentum flavum thickening. Mild effacement of the ventral the [place] sac and moderate effacement of the right lateral recess. Mild bilateral neural foraminal narrowin g. An annular fissure may also be present. L4-5: Mild disc bulge. Minimal effacement of the ventral thecal sac. No significant neural foraminal narrowing. L5-S1: No significant spinal canal or neural foraminal narrowing. Spinal cord terminates in good position at L1. Cauda equina normal in morphology. No gross evidence o f an epidural collection. Flow-voids within the vasculature preserved. Paraspinal muscle atrophy like ly age-related. Remaining visualized soft tissues demonstrate left renal cysts. No paraspinal muscle edema. IMPRESSION: Mild multilevel degenerative changes most significant at L2-3 and L3-4. This is similar to prior exam in 2017. No acute osseous or ligamentous injury. Electronically signed by: Loyd Humphries M.D. 11/23/2018 5:24 PM
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
[2018-11-23] MEDS: SODIUM CHLORIDE 0.9% 1000ML 1,000 ML IV SCH (18:33)
[2018-11-23] MEDS: CYCLOBENZAPRINE HCL 10 MG TAB PO SCH ×3 (19:33→23:16)
[2018-11-23] MEDS: KETOROLAC TROMETHAMINE 15 MG/ML VIAL IV SCH (20:15)
[2018-11-23] MEDS: DEXAMETHASONE SOD PHOSPHATE 4 MG in SYRINGE 0 ML IV SCH (20:15)
[2018-11-23] MEDS: ENOXAPARIN INJ 30 MG/0.3 ML SYR SQ SCH (20:15)
[2018-11-23] MEDS: CARBIDOPA/LEVODOPA 25/100MG TAB PO SCH (20:16)
[2018-11-23] MEDS: GABAPENTIN 400 MG CAP PO SCH (20:16)
[2018-11-23] MEDS: TRAZODONE HCL 50 MG TAB PO SCH (20:17)
[2018-11-23] MEDS: DICLOFENAC SOD 1% GEL 100 GM TUBE EXT SCH (20:17)
[2018-11-24] MEDS: KETOROLAC TROMETHAMINE 15 MG/ML VIAL IV SCH ×4 (01:08→19:33)
[2018-11-24] MEDS: DEXAMETHASONE SOD PHOSPHATE 4 MG in SYRINGE 0 ML IV SCH ×3 (04:56→19:33)
[2018-11-24 07:53] LABS: Hematocrit (blood only) 35.9 % (37-47); Hemoglobin 11.7 g/dL (12.0-16.0); Immature Granulocytes # (auto) 0.01 K/uL (0.00-0.02); Immature Granulocytes % (auto) 0.2 %; Lymphocytes # (auto) 0.54 K/uL (1.2-3.4); Lymphocytes % (auto) 9.1 %; Mean Corpuscular Hemoglobin 31.4 pg (25-34); Mean Corpuscular Hgb Conc 32.6 g/dL (32-36); Mean Corpuscular Volume 96.2 fL (80-100); Mean Platelet Volume 11.6 fL (7.4-10.4); Monocytes # (auto) 0.13 K/uL (0.11-0.59); Monocytes % (auto) 2.2 %; Neutrophils # (auto) 5.23 K/uL (1.4-6.5); Neutrophils % (auto) 88.5 %; Platelet Count 133 K/uL (130-400); RDW Coefficient of Variation 13.5 % (11.5-14.5); RDW Standard Deviation 47.8 fL (36.4-46.3); Red Blood Count 3.73 M/uL (4.2-5.4); White Blood Count 5.91 K/uL (4.8-10.8)
[2018-11-24 08:20] LABS: Albumin Level 3.2 gm/dl (3.4-5.0); BUN Creatinine Ratio 17.9 (10-20); Calcium 8.7 mg/dl (8.5-10.1); Creatinine Clr Calc Pharmacy 38.7 ml/min; Est GFR (African American) 59.3; Est GFR (Non-African American) 51.2; Potassium 4.3 mmol/L (3.5-5.1)
[2018-11-24 08:23] LABS: Bilirubin,Total 0.3 mg/dl (0.2-1); Globulin 3.2 gm/dl (2.5-4.0); Total Protein 6.4 gm/dl (6.4-8.2)
[2018-11-24] MEDS: ATORVASTATIN 20 MG TAB PO SCH (08:51)
[2018-11-24] MEDS: GABAPENTIN 400 MG CAP PO SCH ×2 (08:51→21:01)
[2018-11-24] MEDS: CYCLOBENZAPRINE HCL 10 MG TAB PO SCH ×2 (08:51→13:59)
[2018-11-24] MEDS: ASPIRIN 81 MG ECTAB PO SCH (08:51)
[2018-11-24] MEDS: CEROVITE ADV FORMULA TAB PO SCH (08:51)
[2018-11-24] MEDS: VENLAFAXINE HCL XR 150 MG CAPXR PO SCH (08:51)
[2018-11-24] MEDS: VENLAFAXINE HCL XR 37.5 MG CAPXR PO SCH (08:51)
[2018-11-24] MEDS: METOPROLOL SUCC 25MG EXT REL TAB PO SCH (08:52)
[2018-11-24] MEDS: DICLOFENAC SOD 1% GEL 100 GM TUBE EXT SCH ×3 (08:52→21:02)
[2018-11-24] MEDS: CARBIDOPA/LEVODOPA 25/100MG TAB PO SCH ×3 (08:52→21:03)
[2018-11-24] MEDS: CYANOCOBALAMIN (VITAMIN B-12) 100 MCG TABLET PO SCH (08:52)
[2018-11-24] MEDS: SODIUM CHLORIDE 0.9% 1000ML 1,000 ML IV SCH (11:22)
[2018-11-24] MEDS ORDERED: OXYCODONE HCL IR 5 MG TAB (IMMEDIATE RELEASE) PO PRN (16:08)
--- NOTE | 2018-11-24 17:40 | XRay Report ---
XR hip LT 2V w pelvis HISTORY: 78 years-old Female left groin pain; assess OA of L hip chronic left hip pain without repor immanuel trauma COMPARISON: KUB of same day TECHNIQUE: AP view of the pelvis with 2 views of the left hip FINDINGS: Degenerative changes noted about the imaged lower lumbar spine. Mild osteoarthritis about the bilater al femoral acetabular joints and pubic symphysis. No acute fracture, dislocation or avascular necrosi s. Vascular calcifications project over the pelvis. IMPRESSION: Mild bilateral hip osteoarthritis without acute fracture or dislocation. The above report was generated using voice recognition software. It may contain grammatical, syntax o r spelling errors. Electronically signed by: Ja Rivas M.D. 11/24/2018 5:39 PM
--- NOTE | 2018-11-24 17:46 | XRay Report ---
XR KUB/Abdomen 1 view CLINICAL HISTORY: 78 years-old Female presenting with constipation; assess fecal load. TECHNIQUE: Single supine view of the abdomen was obtained. COMPARISON: CT from 07/05/2017 and plain radiograph from 01/01/2015. FINDINGS: Moderate stool burden throughout the colon. Nonobstructive bowel gas pattern. No gross pneumoperitone um. Allowing for bowel gas and stool, no calcifications to suggest nephrolithiasis. Multiple pelvic phleb oliths. Calcification projects over the left upper quadrant, which correlates with the calcified sple ciara arterial aneurysm. Degenerative changes of the spine. Lung bases clear. IMPRESSION: 1. Stool burden consistent with constipation, which is diffusely throughout the colon. Electronically signed by: Loyd Humphries M.D. 11/24/2018 5:45 PM
--- NOTE | 2018-11-24 19:29 | Hospitalist Progress Note ---
Date of Service November 24, 2018 Assessment & Plan (1) Intractable back pain: Suspect acute left SI joint pain. Does have mild DJD at multiple lumbar levels on MRI l-spine but suspect the main issue is that of the left SI joint. NO compression fractures or acute herniated discs seen on MRI. Cont IV steroids. Lower flexeril to 5mg TID. Heat. Tylenol 1 gm TID. d/c dilaudid. oxycodone prn. toradol prn. begin PT, OT. consider ortho consult if she fails to improve. (2) Paroxysmal atrial tachycardia: continue metoprolol no issues (3) Parkinson's disease: Continue Sinemet no issues (4) Hypertension: Cont metoprolol no issues (5) Hyperlipidemia: Continue Lipitor (6) Change in bowel habits: KUB x-ray to assess stool loading (7) Hip pain: suspect left hip OA x-rays to assess severity (8) DVT prophylaxis: lovenox PT, OT reassess tomorrow Subjective pt c/o focal back pain over the paraspinal region on left side some radiation of pain to the right side of lower back no spinous process pain still quite painful to ambulate no radicular pain or radiation of pain to buttocks or legs no numbness or tingling c/o chronic fluctuation of diarrhea/constipation and asks about this has seen Arnav Padilla recently as outpatient - told to take miralax and fiber supplementation Review of Systems Constitutional: no fever Respiratory: no dyspnea Cardiovascular: no chest pain Gastrointestinal: no abdominal pain Physical Exam Constitutional: well developed and well nourished; no acute distress ENMT: external ear and nose normal, oropharynx normal Respiratory: normal respiratory effort, lungs clear to auscultation Cardiovascular: Rate/Rhythm: regular rate and regular rhythm Heart Sounds: normal S1 and normal S2; no murmur Vessels: posterior tibial pulses present and dorsalis pedis pulses present; no JVD Extremities: no edema Gastrointestinal (Abdomen): normal bowel sounds, soft, nontender, no hepatosplenomegaly Musculoskeletal: back - very tender over left SI joint; none on right SI joint. no spinous process pain t-spine or l-spine. paraspinal muscle spasm b/l. strength bl legs 5/5. left hip - decreased passive ROM likely due to OA. negative straight leg raises b/l. significant muscle spasm about the left hip and pelvis. Neurologic: deep tendon reflexes 2+ bilaterally and moves all extremities; no focal motor deficits sensation intact to both legs with light touch (all dermatomes) Results & Data Vital Signs (Past 12 Hours) Vital Signs Temp Pulse Pulse Resp BP Pulse Ox 11/24/18 19:25 36.4 C L 62 20 131/74 93 11/24/18 15:35 36.7 C 78 18 113/68 97 11/24/18 15:26 74 11/24/18 14:41 37.2 C 71 18 105/63 97 11/24/18 11:24 36.8 C 44 L 18 109/65 97 11/24/18 08:46 84 108/62 11/24/18 08:00 64 Laboratory Results Laboratory Results - last 24 hr 11/24/18 11/24/18 07:15 07:15 WBC 5.91 RBC 3.73 L Hgb 11.7 L Hct 35.9 L MCV 96.2 MCH 31.4 MCHC 32.6 RDW Std Deviation 47.8 H RDW Coeff of Chilo 13.5 Plt Count 133 MPV 11.6 H Immature Gran % (Auto) 0.2 Neut % (Auto) 88.5 Lymph % (Auto) 9.1 [place] % (Auto) 2.2 Eos % (Auto) 0.0 Baso % (Auto) 0.0 Immature Gran # (Auto) 0.01 Neut # (Auto) 5.23 Lymph # (Auto) 0.54 L [place] # (Auto) 0.13 Eos # (Auto) 0.00 Baso # (Auto) 0.00 Sodium 137 Potassium 4.3 Chloride 105 Carbon Dioxide 24 Anion Gap 8.0 BUN 19 H Creatinine 1.05 Est Cr Clr Drug Dosing 38.7 Est GFR ( Amer) 59.3 Est GFR (Non-Af Amer) 51.2 BUN/Creatinine Ratio 17.9 Glucose 112 H Calcium 8.7 Magnesium 2.0 Total Bilirubin 0.3 AST 17 ALT 10 L Alkaline Phosphatase 56 Total Protein 6.4 Albumin 3.2 L Globulin 3.2 Albumin/Globulin Ratio 1.0 PG Care Time/CCT Total # of Minutes Spent Total Time Spent with Patient: Total time spent is greater than 50% in coordination of care (as documented) at patient's floor/unit and/or counseling patient: (1) Hyperlipidemia Hyperlipidemia type: mixed hyperlipidemia Qualified Code(s): E78.2 - Mixed hyperlipidemia (2) Hypertension Hypertension type: essential hypertension Qualified Code(s): I10 - Essential (primary) hypertension (3) Hip pain Laterality: bilateral Qualified Code(s): M25.551 - Pain in right hip; M25.552 - Pain in left hip
[2018-11-24] MEDS: ENOXAPARIN INJ 30 MG/0.3 ML SYR SQ SCH (19:34)
[2018-11-24] MEDS: CYCLOBENZAPRINE HCL 5 MG TAB PO SCH (21:02)
[2018-11-24] MEDS: ACETAMINOPHEN 500 MG TAB PO SCH (21:02)
[2018-11-24] MEDS: TRAZODONE HCL 50 MG TAB PO SCH (21:03)
[2018-11-24] MEDS ORDERED: ZOLPIDEM TARTRATE 5 MG TAB PO PRN (21:26)
[2018-11-25] MEDS: KETOROLAC TROMETHAMINE 15 MG/ML VIAL IV SCH ×3 (02:07→13:36)
[2018-11-25] MEDS: DEXAMETHASONE SOD PHOSPHATE 4 MG in SYRINGE 0 ML IV SCH ×2 (04:18→11:35)
[2018-11-25] MEDS: ALUMINUM/MAGNESIUM SUSP 30 ML UDC PO PRN ×2 (04:22→13:42)
[2018-11-25] MEDS: VENLAFAXINE HCL XR 37.5 MG CAPXR PO SCH (07:53)
[2018-11-25] MEDS: VENLAFAXINE HCL XR 150 MG CAPXR PO SCH (07:53)
[2018-11-25] MEDS: ASPIRIN 81 MG ECTAB PO SCH (07:53)
[2018-11-25] MEDS: ATORVASTATIN 20 MG TAB PO SCH (07:53)
[2018-11-25] MEDS: GABAPENTIN 400 MG CAP PO SCH (07:54)
[2018-11-25] MEDS: METOPROLOL SUCC 25MG EXT REL TAB PO SCH (07:54)
[2018-11-25] MEDS: CARBIDOPA/LEVODOPA 25/100MG TAB PO SCH ×2 (07:54→13:36)
[2018-11-25] MEDS: CEROVITE ADV FORMULA TAB PO SCH (07:54)
[2018-11-25] MEDS: CYANOCOBALAMIN (VITAMIN B-12) 100 MCG TABLET PO SCH (07:55)
[2018-11-25] MEDS: ACETAMINOPHEN 500 MG TAB PO SCH ×2 (07:55→13:36)
[2018-11-25] MEDS: DICLOFENAC SOD 1% GEL 100 GM TUBE EXT SCH ×2 (07:55→13:36)
[2018-11-25] MEDS: CYCLOBENZAPRINE HCL 5 MG TAB PO SCH ×2 (07:59→13:36)
[2018-11-25] MEDS ORDERED: POLYETHYLENE (MIRALAX) 17 GM PACK PO SCH (09:00)
[2018-11-25] MEDS ORDERED: CALCITRIOL 0.25 MCG CAPSULE PO SCH (09:00)
--- NOTE | 2018-11-25 16:16 | Discharge Summary ---
Date of Service date of admission - November 23, 2018 date of discharge - November 25, 2018 Admission HPI Per Admitting Provider 78 year old female with IBS, essential hypertension, chronic kidney disease stage II, depression. Patient was in her regular state of health until the morn ing of admission around 9 am when she was trying to cotton picker a mat from the floor, heard a pop sound, then subsequently developed severe lower back pain and stiffness. Denies any lower extremity weakness, denies any incontinence to stool or urine. She was unable to walk due to the severe pain, 10/10, with severe muscle spasm. Pain slightly goes towards the left lower extremity but mainly in the left lower back. She was brought to the ED by paramedics, received 10 mg of Decadron, 10 mg of Toradol, 0.5 mg of Dilaudid [id number] x3 with no relief of her pain. CT scan lumbar showed multilevel disc bulges with a spinal canal narrowing greatest at level of L2-3. Principal Diagnosis suspected acute left sacroiliac back pain Discharge Exam Constitutional well developed and well nourished; no acute distress ENMT external ear and nose normal, oropharynx normal Respiratory normal respiratory effort, lungs clear to auscultation Cardiovascular Rate/Rhythm: regular rate and regular rhythm Heart Sounds: normal S1 and normal S2; no murmur Vessels: posterior tibial pulses present and dorsalis pedis pulses present; no JVD Extremities: no edema Gastrointestinal (Abdomen) normal bowel sounds, soft, nontender, no hepatosplenomegaly Musculoskeletal minimal tenderness left SI joint to palpation; no pain over spinous processes or right SI joint; previous muscle spasm much improved. Negative straight leg raise test b/l. Neurologic deep tendon reflexes 2+ bilaterally and moves all extremities; no focal motor deficits Discharge Data Allergies Allergy/AdvReac Type Severity Reaction Status Date / Time Penicillins Allergy Severe RASH Verified 11/30/18 02:19 gluten Allergy Intermediate GI SYMPTOMS Verified 11/30/18 02:19 lactose Allergy Intermediate GI SYMPTOMS Verified 11/30/18 02:19 Sulfa (Sulfonamide Allergy Intermediate RASH Verified 11/30/18 02:19 Antibiotics) sulfamethoxazole Allergy Intermediate RASH Verified 11/30/18 02:19 doxycycline Allergy Unknown Unknown Verified 11/30/18 02:19 ropinirole Allergy Unknown Unknown Verified 11/30/18 02:19 Consultations PT, OT Ordered Studies 1. CT lumbar spine 2. MRI lumbar spine - IMPRESSION: Mild multilevel degenerative changes most significant at L2-3 and L3-4. This is similar to prior exam in 2017. No acute osseous or ligamentous injury. 3. KUB x-ray - moderate stool burden. Hospital Course (1) Intractable back pain: Suspect acute left SI joint pain. 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 NO compression fractures or acute herniated discs seen on MRI. Pain improved with IV steroids, flexeril, heat, tylenol, pain meds, and NSAIDs. Seen by PT/OT and cleared for home. She will complete a course of oral decadron post-discharge. She was asked to follow-up with her PCP and if pain persists may need outpatient orthopedic evaluation. (2) Paroxysmal atrial tachycardia: continue metoprolol no issues while hospitalized (3) Parkinson's disease: Continue Sinemet no issues while here (4) Hypertension: Cont metoprolol BPs controlled while hospitalized (5) Hyperlipidemia: Continue Lipitor as previous (6) Change in bowel habits: KUB x-rays with moderate stool burden. She had recently seen [facility] for this issue. They had advised 1 dose of miralax with 1 dose of fiber supplementation daily. I recommended she titrate her miralax to have a soft BM every 2-3 days and to f/u with [facility] for colonoscopy as planned. (7) Hip pain: left x-rays with OA no significant issues while hospitalized Total Time Total Time Spent Total Time Spent (In Minutes): 35 Total Time Includes: Examination of the Patient, Discharge Planning and Medication Reconciliation Discharge Plan Discharge Items Patient Disposition: Home - Self-Care Reason For Visit: Severe low back pain Discharge Diagnosis: Severe low back pain - improved. Suspect combination of left "SI" joint dysfunction/inflammation +/- pain from arthritis of the lumbar spine. Condition on Discharge: Good Goals: 1. improve your back pain 2. find out what is causing the pain Activity: As commented below Activity Comment: no strenuous activities for at least 7-10 days Lifting: No more than 10 pounds Lifting Comment: for about 1 week Bathing: No limitations Exercise/Sports: Gradually increase as tolerated Non-emergency contact: Primary Care Provider Call non-emergency contact if: you have any medication questions, your symptoms worsen, your pain is not controlled and your pain is worsening Follow-up/Referrals: Loyd Bustillos MD [Primary Care Provider] - 12/01/18 10:15 am (Please, follow up at Dr. Loyd Bustillos's [place] office with his associate, Micky LOWRY, on SaturdayDecember 01 at 10:15 am. *If you need to change this appointment, call their office at [phone]. ) Diet: Regular Addtl Attending Provider Instructions: You were treated for severe lower back pain. MRI of the lumbar spine showed an assortment of issues - most of mild degree - including arthritis, herniated discs in various locations, etc. The MRI was largely unchanged from your MRI done in 2017. There were no broken bones of the back. You had severe pain to the left of the spine over the SI joint. This is where your lower spine meets the pelvis. I believe your pain was coming from the left SI joint. I cannot rule out that one of your pre-existing herniated discs was pushing on a nerve root causing your pain. Either way you improved with time, steroids, pain meds, muscle relaxers, and heat. You were seen by PT/OT and cleared for home by them. Recommendations: 1. take dexamethasone (steroid) by mouth starting 11/26/18. This will be an 8- day taper. Take the steroid with food. 2. continue with heat to the back as desired. 3. may use voltaren (diclofenac) gel -- 4 grams rubbed into the areas of pain -- every 6 hours as needed. 4. may use hydrocodone-acetaminophen pain medication. This is a narcotic pain killer. Please use it sparingly. DO NOT DRIVE OR DRINK ALCOHOL WHILE USING THIS MEDICATION. THIS MEDICATION MAY MAKE YOU SLEEPY. Hydrocodone also causes constipation. If you decide to take the hydrocodone do not take extra [id number] tylenol as the pain killer already has tylenol in it. 5. for your bowels please increase your miralax to twice daily dosing. if you continue to have issues with the bowels please see [facility] for this. 6. your hip x-rays showed mild arthritis. 7. follow-up -- see separate section. 8. physical therapy - consider outpatient physical therapy in about 7-10 days for your back. Return to [facility] if -- -you have worsening back pain despite taking the above medications -you have bowel or bladder incontinence (loss of urine or stool) -you have inability to move your legs as previous -you have severe numbness of either leg -any other concerns Pending Studies at Discharge: No Stand-Alone Forms: [facility] Medications and DC Order Prescriptions: New polyethylene glycol 3350 [Miralax] 17 gram Powder In Packet 17 g PO BID Qty: 60 RF: 0 hydrocodone-acetaminophen [Nicasio] 5-325 mg tablet 1 tab PO Q6H PRN (Reason: pain) Qty: 14 RF: 0 dexamethasone 2 mg tablet 2 mg PO DIRECTED Qty: 10 RF: 0 Continued gabapentin 800 mg tablet 800 mg PO DAILY Qty: 30 RF: 0 aspirin 81 mg tablet,chewable 81 mg PO DAILY Qty: 90 RF: 1 atorvastatin 20 mg tablet 20 mg PO DAILY Qty: 90 RF: 1 calcitriol 0.25 mcg capsule 0.25 mcg PO Q OTHER DAY Qty: 90 RF: 1 carbidopa-levodopa 25-100 mg tablet 1 tab PO TID Qty: 90 RF: 1 cyanocobalamin (vitamin B-12) 100 mcg tablet 200 mcg PO DAILY Qty: 180 RF: 1 metoprolol succinate 25 mg tablet extended release 24 hr 25 mg PO DAILY Qty: 90 RF: 1 multivitamin [Multiple Vitamins] tablet 1 tab PO DAILY Qty: 90 RF: 1 trazodone 50 mg tablet 50 mg PO HS Qty: 90 RF: 1 venlafaxine 75 mg capsule,extended release 24hr 150 mg PO DAILY Qty: 90 RF: 1 PreserVision AREDS 14,320-226-200 [id number] capsule 1 cap PO DAILY Qty: 90 RF: 1 Changed diclofenac sodium 1 % gel 4 gm topical Q6H PRN (Reason: Back Pain) Qty: 1 RF: 0 No Action alprazolam 0.25 mg tablet 0.25 mg PO Q6H PRN (Reason: anxiety) Qty: 90 RF: 0 Discharge Orders: Discharge Order (Routine); Ordered 11/25/18 Ordered By: Jamison Charles Admission Data Admit Date/Time: 11/23/18 16:25 Attending Provider: Jamison Charles Admit Provider: Deepa Harrington Primary Care Provider: Loyd Bustillos Other Providers: Deepa Harrington Other Interventions: Discharge Summary Assessment (RN) Last Done: 11/25/18 16:28 DC Date/Time DO NOT enter until pt leaves facility: 11/25/18 17:15
== END 2018-11-25 17:15 | disposition home or self-care (01) | DRG 552 ==
LOC: ED 11:07 → SUATTDRO 16:25 → 2W 16:25
DX: G20 Parkinson's disease; E78.5 Hyperlipidemia, unspecified; I12.9 Hypertensive chronic kidney disease with stage 1 through stage 4 chronic kidney disease, or unspecified chronic kidney disease; M53.3 Sacrococcygeal disorders, not elsewhere classified; M16.12 Unilateral primary osteoarthritis, left hip; N18.2 Chronic kidney disease, stage 2 (mild); F32.9 Major depressive disorder, single episode, unspecified; I47.1 Supraventricular tachycardia

== ENCOUNTER 2019-12-01 09:11 | Observation (INO) ==
[2019-12-01] MEDS ORDERED: PROMETHAZINE 6.25 MG/50.25 ML BAG IV STA (09:39)
[2019-12-01] MEDS ORDERED: SODIUM CHLORIDE 0.9% 500 ML IV SCH (09:45)
[2019-12-01 09:46] LABS: Eosinophils # (auto) 0.07 K/uL (0-0.5); Eosinophils % (auto) 1.8 %; Hematocrit (blood only) 34.1 % (37-47); Hemoglobin 11.5 g/dL (12.0-16.0); Lymphocytes # (auto) 0.79 K/uL (1.2-3.4); Lymphocytes % (auto) 20.6 %; Mean Corpuscular Hemoglobin 34.5 pg (25-34); Mean Corpuscular Hgb Conc 33.7 g/dL (32-36); Mean Corpuscular Volume 102.4 fL (80-100); Mean Platelet Volume 11.6 fL (7.4-10.4); Monocytes % (auto) 10.4 %; Neutrophils # (auto) 2.57 K/uL (1.4-6.5); Neutrophils % (auto) 67.2 %; Platelet Count 156 K/uL (130-400); RDW Coefficient of Variation 16.2 % (11.5-14.5); RDW Standard Deviation 60.6 fL (36.4-46.3); Red Blood Count 3.33 M/uL (4.2-5.4); White Blood Count 3.83 K/uL (4.8-10.8)
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
[2019-12-01 09:57] LABS: INR 1.1 (0.9-1.1); Partial Thromboplastin Ratio 0.9; Partial Thromboplastin Time 24.9 Seconds (21.0-31.0); Prothrombin Time 11.7 Seconds (9.0-12.0)
[2019-12-01 10:04] LABS: Albumin Level 3.5 gm/dl (3.4-5.0); BUN Creatinine Ratio 12.2 (10-20); Calcium 9.4 mg/dl (8.5-10.1); Creatinine Clr Calc Pharmacy 40.9 ml/min; Est GFR (Non-African American) 55.3; Magnesium 1.9 mg/dl (1.8-2.4); Potassium 3.6 mmol/L (3.5-5.1)
[2019-12-01 10:15] LABS: Albumin Globulin Ratio 1.2 (0.9-2); Bilirubin,Total 0.4 mg/dl (0.2-1); Globulin 2.9 gm/dl (2.5-4.0); Thyroid Stimulating Hormone 0.851 uIu/ml (0.300-4.500); Total Protein 6.4 gm/dl (6.4-8.2); Troponin I 0.025 ng/ml (0-0.045)
--- NOTE | 2019-12-01 10:18 | XRay Report ---
XR chest 1V portable CLINICAL HISTORY: weakness COMPARISON STUDY: Chest CT July 07, 2017. Chest radiograph September 27, 2017. FINDINGS: Lung volumes are normal. Lungs are clear. There is no pneumothorax or pleural effusion. Car diac size is normal. Mediastinal contours are normal. There is no evidence for pulmonary edema. IMPRESSION: No acute cardiopulmonary findings. ACT 112: Negative or not required by law. Electronically signed by: Morris Qureshi M.D. 12/01/2019 10:17 AM
--- NOTE | 2019-12-01 10:19 | XRay Report ---
KUB CLINICAL HISTORY: Nausea. COMPARISON STUDY: CT of the abdomen and pelvis November 30, 2018. FINDINGS: Mild dextroscoliosis of the lumbar spine is incidentally noted. The bowel gas pattern is no rmal. No urinary calculi are identified. IMPRESSION: No evidence for a bowel obstruction. ACT 112: Negative or not required by law. Electronically signed by: Morris Qureshi M.D. 12/01/2019 10:18 AM
--- NOTE | 2019-12-01 11:12 | CT Scan Report ---
CT OF THE HEAD WITHOUT CONTRAST CLINICAL HISTORY: nausea COMPARISON STUDY: MRI of the brain December 05, 2017. CT DOSE: 537.48 mGy.cm TECHNIQUE: Helical axial images of the head were obtained without IV contrast. Automated exposure con trol was utilized for the study. A dose lowering technique was utilized adhering to the principles o f ALARA. FINDINGS: No acute intracranial hemorrhage, midline shift or mass effect is present. The ventricular system is unremarkable. The basilar cisterns are patent. No extra-axial collections are present. Ther e are no findings to suggest acute dural sinus thrombosis or acute territorial infarct. No significan t calvarial abnormalities are present. Visualized portions of the sinuses and mastoid air cells are c lear. IMPRESSION: No acute intracranial findings. ACT 112: Negative or not required by law. Electronically signed by: Morris Qureshi M.D. 12/01/2019 11:10 AM
[2019-12-01 12:32] LABS: Appearance Urine Clear (Clear); Bilirubin Urine Negative (Negative); Blood Urine Negative (Negative); Color Urine Yellow; Glucose Urine UA Negative (Negative); Ketones Urine Negative (Negative); Leukocyte Esterase Urine Negative (Negative); Nitrite Urine Negative (Negative); Protein Urine Negative (Negative); Specific Gravity Urine 1.006 (1.000-1.030); Urobilinogen Urine Negative (Negative); pH Urine 7.5 (4.5-7.5)
[2019-12-01] MEDS ORDERED: ONDANSETRON INJ 2 MG/ML 2 ML VIAL IV STA (12:55)
[2019-12-01] MEDS ORDERED: ASPIRIN CHEW 324 MG PO STA (12:55)
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
[2019-12-01] MEDS ORDERED: PROMETHAZINE HCL 6.25 MG in SODIUM CHLORIDE 0.9% 50 ML IV STA (14:03)
[2019-12-01 14:57] LABS: Folate (Folic Acid) 2.79 ng/ml (>5.38)
[2019-12-01] MEDS ORDERED: PROMETHAZINE 12.5 MG/50.5 ML NSS IV ONE (15:29)
[2019-12-01] MEDS ORDERED: ACETAMINOPHEN 325 MG TAB PO PRN (16:23)
[2019-12-01] MEDS ORDERED: PROMETHAZINE HCL 6.25 MG in SODIUM CHLORIDE 0.9% 50 ML IV PRN (16:23)
[2019-12-01] MEDS: D5W AND 1/2NSS + 20MEQ KCL 20 MEQ/1,000 ML BAG IV SCH (16:55)
[2019-12-01] MEDS ORDERED: METOPROLOL SUCC 25MG EXT REL TAB PO STA (17:40)
[2019-12-01] MEDS: CARBIDOPA/LEVODOPA 25/100MG TAB PO SCH ×2 (17:44→20:37)
[2019-12-01] MEDS: VENLAFAXINE HCL XR 150 MG CAPXR PO SCH (17:45)
[2019-12-01] MEDS: VENLAFAXINE HCL XR 37.5 MG CAPXR PO SCH (17:45)
[2019-12-01] MEDS ORDERED: FOLIC ACID 1 MG TAB PO SCH (19:00)
[2019-12-01] MEDS ORDERED: CYANOCOBALAMIN 1,000 MCG in SYRINGE 0.97 ML IM ONE (20:13)
[2019-12-01] MEDS: ALPRAZolam 0.5 MG TABLET PO PRN (20:35)
[2019-12-01] MEDS: POLYETHYLENE (MIRALAX) 17 GM PACK PO SCH (20:36)
[2019-12-01] MEDS: GABAPENTIN 800 MG TAB PO SCH (20:37)
[2019-12-01] MEDS: TRAZODONE HCL 50 MG TAB PO SCH (20:40)
[2019-12-01] MEDS ORDERED: CYANOCOBALAMIN 1000 MCG/ML VIAL IM ONE (21:00)
[2019-12-02] MEDS: D5W AND 1/2NSS + 20MEQ KCL 20 MEQ/1,000 ML BAG IV SCH ×2 (05:51→19:09)
--- NOTE | 2019-12-02 05:58 | Electrocardiogram Report ---
Test Reason : Blood Pressure : / mmHG Vent. Rate : 068 BPM Atrial Rate : 068 BPM P-R Int : 138 ms QRS Dur : 084 ms QT Int : 394 ms P-R-T Axes : 030 020 -48 degrees QTc Int : 418 ms Normal sinus rhythm Septal infarct , age undetermined Abnormal ECG When compared with ECG of 27-SEP-2017 09:47, Septal infarct is now Present Inverted T waves have replaced nonspecific T wave abnormality in Inferior leads T wave inversion now evident in Anterior leads Confirmed by Titus Robertson [id number] on 12/02/2019 5:57:47 AM Referred By: REFERRED SELF Confirmed By:Titus Robertson
[2019-12-02] MEDS: ALPRAZolam 0.5 MG TABLET PO PRN ×2 (05:59→20:06)
[2019-12-02 06:41] LABS: Eosinophils # (auto) 0.15 K/uL (0-0.5); Eosinophils % (auto) 5.1 %; Lymphocytes # (auto) 0.59 K/uL (1.2-3.4); Mean Corpuscular Hemoglobin 34.6 pg (25-34); Mean Corpuscular Hgb Conc 33.3 g/dL (32-36); Mean Corpuscular Volume 103.8 fL (80-100); Monocytes # (auto) 0.45 K/uL (0.11-0.59); Monocytes % (auto) 15.3 %; Neutrophils # (auto) 1.76 K/uL (1.4-6.5); Neutrophils % (auto) 59.6 %; Platelet Count 139 K/uL (130-400); RDW Coefficient of Variation 16.3 % (11.5-14.5); RDW Standard Deviation 60.9 fL (36.4-46.3); Red Blood Count 3.18 M/uL (4.2-5.4); White Blood Count 2.95 K/uL (4.8-10.8)
[2019-12-02 07:16] LABS: Magnesium 2.1 mg/dl (1.8-2.4); Phosphorus 2.7 mg/dl (2.5-4.9); Troponin I 0.041 ng/ml (0-0.045)
[2019-12-02] MEDS: CARBIDOPA/LEVODOPA 25/100MG TAB PO SCH ×4 (08:00→20:08)
[2019-12-02] MEDS ORDERED: CYANOCOBALAMIN 500 MCG TABLET (VITAMIN B-12) PO SCH (09:00)
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
[2019-12-02] MEDS ORDERED: POLYETHYLENE (MIRALAX) 17 GM PACK PO ONE (10:15)
[2019-12-02] MEDS ORDERED: METOPROLOL TARTRATE 1 MG/ML VIAL IV ONE (10:26)
[2019-12-02] MEDS ORDERED: ATROPINE SULFATE 0.1 MG/ML 10ML SYR IV ONE (10:26)
[2019-12-02] MEDS ORDERED: DOBUTamine HCL 12.5 MG/ML 20 ML VIAL IV ONE (10:26)
--- NOTE | 2019-12-02 13:12 | XCELERA ---
[id number]
--- NOTE | 2019-12-02 13:23 | Hospitalist Progress Note ---
Date of Service December 02, 2019 Assessment & Plan (1) Nausea: Aranza Hurst is a 79y/o F w/ PMH difficult for Parkinson's disease, insomnia, B12 deficiency, migraines, adjustment disorder, polyneuropathy, atrial tachycardia; presented for concerns for new onset chest pain/nausea in setting of continued cyclical constipation/diarrhea Nausea: -Likely secondary to constipation with overflow diarrhea -Patient was previously advised to take MiraLAX twice daily, but would frequently take only 1 dose and then will follow that up with taking him of Imodium -Patient concerned about numerous trips to the bathroom for bowel movements while on medications -Previously was being seen by [facility] for irritable bowel syndrome in the setting of cyclical constipation diarrhea, previously had relief of symptoms following colonoscopy prep with subsequent incremental return of symptoms over time -Ordered MiraLAX 34 g x 1 and attempt to clear bowel distention -Avoid giving any potentially constipating medications B12 deficiency: -Visually secondary to poor oral intake of vitamin [id number] foods -B12 low on admission -Started on vitamin B12 injections daily, with plan to transition to oral on discharge -Advise recheck of B12 levels in 1 month for evaluation of oral absorption capacity and further determination of need for B12 injection Parkinson's disease: -On carbidopa levodopa 1.5 tabs 4 times daily from outpatient neurology -Neurology consulted: Appreciate recs Chest pain: -Unlikely that this is cardiac in nature, more likely secondary to GI distention -EKG demonstrating indeterminate age septal infarct, with out acute changes -Troponins trended x3 all within normal limit -Dobutamine stress echo unremarkable for wall motion abnormalities Polyneuropathy: -Likely secondary to multiple vitamin deficiencies -Repleting vitamin B12, B1, folate (2) B12 deficiency: (3) Parkinsons disease: (4) Chest pain: (5) Paroxysmal atrial tachycardia: (6) Adjustment disorder with anxiety: (7) Idiopathic polyneuropathy: Admission and Anticipated Discharge Date Admission Date: December 01, 2019 Supervising Physician Co-Signing Physician Notes I personally examined the patient and verified all buck points of history and exam, discussed case, and agree with decision making with Dr Stovall. discussed w neuro input appreciated. waiting on miralax. no new complaints vitals noted nad heent nc at mmmm breathing unlabored no accessory muscles chest pain - noncardiac suspect GI nausea/pain/chronic constipation w overflow - seems to have a better understanding of this now. miralax. severe B12 deficiency - replete, low folate as well - replete. add thiamine just due to probability of other deficiencies macrocytic anemia related to above - replete b12 otherwise as above Subjective Patient this morning endorsed that she has had limited oral intake over the last several weeks in an effort to attempt to keep her from having too many bowel mo vement on the miralax, would also frequently take imodium as she would feel embarassed if she had to use the toilet more frequently than a couple times in a day. Denies chest pain, palpitations, lightheadedness, shortness of breath, abdominal pain, increased bowel movements, or increased urinary frequency. Review of Systems Review of Systems: All systems reviewed & are unremarkable except as noted in Subjective Physical Exam Constitutional: WD/WN, vitals as above Eyes: PERRL, conjunctivae normal, anicteric sclerae Respiratory: normal respiratory effort, lungs clear to auscultation Cardiovascular: Rate/Rhythm: regular rate and regular rhythm Heart Sounds: no gallop, no murmur and no cardiac rub Vessels: normal peripheral pulses; no JVD Extremities: no edema Gastrointestinal (Abdomen): normal bowel sounds, soft, nontender, no hepatosplenomegaly Musculoskeletal: no cyanosis or clubbing, extremities motor strength 5/5 Skin: no rashes, warm and dry Psychiatric: Orientation: alert and oriented x 3 Affect: + flat affect Results & Data Results & Data ([facility]) Vital Signs (Past 12 Hours) Vital Signs Temp Pulse Pulse Resp BP BP Pulse Ox 12/02/19 07:19 36.4 C L 53 L 16 109/60 98 12/02/19 07:11 51 L 12/02/19 04:05 36.4 C L 87 18 117/66 95 12/02/19 03:15 36.6 C 53 L 20 98/61 L 97 12/02/19 01:25 56 L Laboratory Results 12/02/19 12/02/19 12/02/19 Range/Units 06:23 06:23 06:23 WBC 2.95 L (4.8-10.8) K/uL RBC 3.18 L (4.2-5.4) M/uL Hgb 11.0 L (12.0-16.0) g/dL Hct 33.0 L (37-47) % MCV 103.8 H (80-100) fL MCH 34.6 H (25-34) pg MCHC 33.3 (32-36) g/dL RDW Std Deviation 60.9 H (36.4-46.3) fL RDW Coeff of Chilo 16.3 H (11.5-14.5) % Plt Count 139 (130-400) K/uL MPV 11.0 H (7.4-10.4) fL Immature Gran % (Auto) 0.0 % Neut % (Auto) 59.6 % Lymph % (Auto) 20.0 % Bullock % (Auto) 15.3 % Eos % (Auto) 5.1 % Baso % (Auto) 0.0 % Neut # (Auto) 1.76 (1.4-6.5) K/uL Lymph # (Auto) 0.59 L (1.2-3.4) K/uL Bullock # (Auto) 0.45 (0.11-0.59) K/uL Eos # (Auto) 0.15 (0-0.5) K/uL Baso # (Auto) 0.00 (0-0.2) K/uL Immature Gran # (Auto) 0.00 (0.00-0.02) K/uL Phosphorus 2.7 (2.5-4.9) mg/dl Magnesium 2.1 (1.8-2.4) mg/dl Troponin I 0.041 (0-0.045) ng/ml Intrinsic Factor (Block Pending 12/01/19 Range/Units 17:45 WBC (4.8-10.8) K/uL RBC (4.2-5.4) M/uL Hgb (12.0-16.0) g/dL Hct (37-47) % MCV (80-100) fL MCH (25-34) pg MCHC (32-36) g/dL RDW Std Deviation (36.4-46.3) fL RDW Coeff of Chilo (11.5-14.5) % Plt Count (130-400) K/uL MPV (7.4-10.4) fL Immature Gran % (Auto) % Neut % (Auto) % Lymph % (Auto) % Bullock % (Auto) % Eos % (Auto) % Baso % (Auto) % Neut # (Auto) (1.4-6.5) K/uL Lymph # (Auto) (1.2-3.4) K/uL Bullock # (Auto) (0.11-0.59) K/uL Eos # (Auto) (0-0.5) K/uL Baso # (Auto) (0-0.2) K/uL Immature Gran # (Auto) (0.00-0.02) K/uL Phosphorus (2.5-4.9) mg/dl Magnesium (1.8-2.4) mg/dl Troponin I 0.033 (0-0.045) ng/ml Intrinsic Factor (Block Medications Administered Current Inpatient Medications Acetaminophen (Acetaminophen 325 Mg Tab) 650 mg PO Q4H PRN PRN Reason: Pain or Fever Stop: 12/31/19 16:22 Alprazolam (Alprazolam 0.5 Mg Tablet) 0.5 mg PO HS PRN PRN Reason: anxiety Stop: 12/31/19 16:22 Last Admin: 12/02/19 05:59 Dose: 0.5 mg Documented by: Carbidopa/Levodopa (Carbidopa/Levodopa 25/100mg Tab) 1.5 tab PO QID@0800,1200,1600,2000 [place] Stop: 12/31/19 16:59 Last Admin: 12/02/19 17:13 Dose: 1.5 tab Documented by: Cyanocobalamin (Cyanocobalamin 1000 Mcg/Ml Vial) 1,000 mcg IM DAILY [place] Stop: 01/01/20 08:59 Last Admin: 12/02/19 14:13 Dose: 1,000 mcg Documented by: Folic Acid (Folic Acid 1 Mg Tab) 1 mg PO QAM [place] Stop: 12/31/19 18:59 Last Admin: 12/01/19 20:35 Dose: 1 mg Documented by: Gabapentin (Gabapentin 800 Mg Tab) 800 mg PO HS [place] Stop: 12/31/19 20:59 Last Admin: 12/01/19 20:37 Dose: 800 mg Documented by: Promethazine HCl 6.25 mg/ (Sodium Chloride) 50.25 mls @ 201 mls/hr IV Q6H PRN PRN Reason: Nausea And Vomiting Stop: 12/31/19 16:22 Potassium Chloride/Dextrose/Sod Cl (D5w And 1/2nss + 20meq Kcl) 20 meq in 1,000 mls @ 80 mls/hr IV .[id number] [place] Stop: 12/31/19 16:59 Last Admin: 12/02/19 05:51 Dose: 80 mls/hr Documented by: Folic Acid 1 mg/ Syringe 10 mls @ 5 mls/min IV QAM [place] Stop: 01/01/20 08:59 Last Admin: 12/02/19 14:12 Dose: 5 mls/min Documented by: Metoprolol Succinate (Metoprolol Succ 25mg Ext Rel Tab) 25 mg PO QAM [place] Stop: 01/01/20 08:59 Last Admin: 12/02/19 14:13 Dose: 25 mg Documented by: Thiamine HCl (Thiamine Hcl 100 Mg Tab) 100 mg PO QAM [place] Stop: 01/01/20 08:59 Last Admin: 12/02/19 14:13 Dose: 100 mg Documented by: Trazodone HCl (Trazodone Hcl 50 Mg Tab) 50 mg PO HS [facility] Stop: 12/31/19 20:59 Last Admin: 12/01/19 20:40 Dose: 50 mg Documented by: Venlafaxine HCl (Venlafaxine Hcl Xr 150 Mg Capxr) 150 mg PO QAM [place] Stop: 12/31/19 16:22 Last Admin: 12/02/19 14:11 Dose: 150 mg Documented by: Venlafaxine HCl (Venlafaxine Hcl Xr 37.5 Mg Capxr) 37.5 mg PO QAM [place] Stop: 12/31/19 16:22 Last Admin: 12/02/19 14:11 Dose: 37.5 mg Documented by: Resident Activity Tracking Resident Involvement: Resident Care Provided Care Provided: Adult [facility] Medicine
[2019-12-02] MEDS: VENLAFAXINE HCL XR 150 MG CAPXR PO SCH (14:11)
[2019-12-02] MEDS: VENLAFAXINE HCL XR 37.5 MG CAPXR PO SCH (14:11)
[2019-12-02] MEDS: FOLIC ACID 1 MG in SYRINGE 9.8 ML IV SCH (14:12)
[2019-12-02] MEDS: THIAMINE HCL 100 MG TAB PO SCH (14:13)
[2019-12-02] MEDS: METOPROLOL SUCC 25MG EXT REL TAB PO SCH (14:13)
[2019-12-02] MEDS: CYANOCOBALAMIN 1000 MCG/ML VIAL IM SCH (14:13)
[2019-12-02] MEDS: POLYETHYLENE (MIRALAX) 17 GM PACK PO SCH (17:43)
--- NOTE | 2019-12-02 18:42 | Billing Data ---
Date of Service December 02, 2019 Coding Level of Care Code 01166 Subseq Obs Care Lvl 3
[2019-12-02] MEDS: GABAPENTIN 800 MG TAB PO SCH (20:08)
[2019-12-02] MEDS: TRAZODONE HCL 50 MG TAB PO SCH (20:08)
[2019-12-03] MEDS: D5W AND 1/2NSS + 20MEQ KCL 20 MEQ/1,000 ML BAG IV SCH (06:06)
[2019-12-03 08:13] LABS: Eosinophils # (auto) 0.34 K/uL (0-0.5); Hematocrit (blood only) 36.8 % (37-47); Hemoglobin 12.1 g/dL (12.0-16.0); Immature Granulocytes # (auto) 0.01 K/uL (0.00-0.02); Immature Granulocytes % (auto) 0.2 %; Lymphocytes # (auto) 1.09 K/uL (1.2-3.4); Lymphocytes % (auto) 25.6 %; Mean Corpuscular Hemoglobin 34.5 pg (25-34); Mean Corpuscular Hgb Conc 32.9 g/dL (32-36); Mean Corpuscular Volume 104.8 fL (80-100); Mean Platelet Volume 11.5 fL (7.4-10.4); Monocytes # (auto) 0.32 K/uL (0.11-0.59); Monocytes % (auto) 7.5 %; Neutrophils # (auto) 2.49 K/uL (1.4-6.5); Neutrophils % (auto) 58.7 %; Platelet Count 160 K/uL (130-400); RDW Coefficient of Variation 16.5 % (11.5-14.5); RDW Standard Deviation 63.1 fL (36.4-46.3); Red Blood Count 3.51 M/uL (4.2-5.4); White Blood Count 4.25 K/uL (4.8-10.8)
[2019-12-03 08:48] LABS: BUN Creatinine Ratio 14.8 (10-20); Calcium 9.3 mg/dl (8.5-10.1); Est GFR (Non-African American) 60.4; Potassium 4.3 mmol/L (3.5-5.1)
[2019-12-03] MEDS: FOLIC ACID 1 MG in SYRINGE 9.8 ML IV SCH (09:05)
[2019-12-03] MEDS: VENLAFAXINE HCL XR 37.5 MG CAPXR PO SCH (09:06)
[2019-12-03] MEDS: CYANOCOBALAMIN 1000 MCG/ML VIAL IM SCH (09:06)
[2019-12-03] MEDS: METOPROLOL SUCC 25MG EXT REL TAB PO SCH (09:06)
[2019-12-03] MEDS: THIAMINE HCL 100 MG TAB PO SCH (09:06)
[2019-12-03] MEDS: CARBIDOPA/LEVODOPA 25/100MG TAB PO SCH ×2 (09:07→12:31)
[2019-12-03] MEDS: VENLAFAXINE HCL XR 150 MG CAPXR PO SCH (09:07)
[2019-12-03 12:00] VITALS: O2SAT 100
[2019-12-03 15:11] VITALS: PULSE 59; TEMP 97.9
[2019-12-03 15:22] VITALS: BP 112/73
--- NOTE | 2019-12-03 15:40 | Discharge Summary ---
Date of Service December 03, 2019 Admission HPI Per Admitting Provider Aranza Hurst is a 79 year old female who presents to the ER due to chest pain and ongoing nausea. She does not think these 2 things are related, but finds it very difficult to distinguish between the two. She is here with her daughter who is able to provide some extra clarity. Most acutely concerning is an episode of chest pain with associated diaphoresis that occurred 2 days ago. Chest pain was substernal, she felt it was too high for her heart that was not too concerned at the time. Lindsay like a pressure. Unable to give me a severity. It lasted for 30 to 60 minutes. No worse on exertion, nonpleuritic. Came on at rest. No relieving factors. Difficult to get a definitive history regarding her subacute complaint of nausea but has been most concerning since her endoscopy was performed approximately 2 weeks ago and getting progressively worse since this time. She is unsure whether the endoscopy caused her increased nausea or possibly increased dose of Sinemet from her neurology appointment at the beginning of October. No associated migraine headache. She denies any vomiting with this nausea. Associated appetite suppression. Worse when she first gets up out of bed in the morning. Denies dysphagia or odynophagia. She does have intermittent left upper quadrant abdominal pains which has been substantially worked up by her laborer/grade check with no pathology identified other than her IBS, however this appears to be unrelated to her current nausea. No acute change in her bowel movements. No melena or bright red blood in stool. Her daughter called her PCP and neurologist and ondansetron was prescribed and Sinemet reduced to 1.5 tabs 4 times daily. She took the ondansetron this morning to no effect. Came to the ER today as she is now unable to take her medications due to her nausea. Her daughter in addition encouraged her to come as she was complaining of chest pain although the patient was unable to describe her chest pain she had this morning to me. She does note increased anxiety recently although she relates this to her current medical problems. She denies increasing her venlafaxine or Xanax recently. She takes Xanax 0.5 mg p.o. at bedtime routinely for years, occ asionally took this during the day and it did help her nausea on one occasion. In the ER she was given Phenergan and ondansetron. The patient reports significant improvement of her nausea with Phenergan.. Principal Diagnosis Constipation Discharge Exam Constitutional WD/WN, vitals as above Eyes PERRL, conjunctivae normal, anicteric sclerae Respiratory normal respiratory effort, lungs clear to auscultation Cardiovascular Rate/Rhythm: regular rate and regular rhythm Heart Sounds: no gallop, no murmur and no cardiac rub Vessels: normal peripheral pulses; no JVD Extremities: no edema Gastrointestinal (Abdomen) normal bowel sounds, soft, nontender, no hepatosplenomegaly Musculoskeletal no cyanosis or clubbing, extremities motor strength 5/5 Skin no rashes, warm and dry Psychiatric Orientation: alert and oriented x 3 Affect: + flat affect Discharge Data Allergies Allergy/AdvReac Type Severity Reaction Status Date / Time Penicillins Allergy Severe RASH Verified 12/01/19 10:10 gluten Allergy Intermediate GI SYMPTOMS Verified 12/01/19 10:10 lactose Allergy Intermediate GI SYMPTOMS Verified 12/01/19 10:10 Sulfa (Sulfonamide Allergy Intermediate RASH Verified 12/01/19 10:10 Antibiotics) sulfamethoxazole Allergy Intermediate RASH Verified 12/01/19 10:10 doxycycline Allergy Unknown Unknown Verified 12/01/19 10:10 ropinirole Allergy Unknown Unknown Verified 12/01/19 10:10 Consultations 12/01/19 13:00 ED Decision to Admit Stat 12/01/19 16:23 Consult Neurology Routine Ordered Studies 12/01/19 09:39 CT head/brain wo con Stat Hospital Course (1) Nausea: Aranza Hurst is a 79y/o F w/ PMH difficult for Parkinson's disease, insomnia, B12 deficiency, migraines, adjustment disorder, polyneuropathy, atrial tachycardia; presented for concerns for new onset chest pain/nausea in setting of continued cyclical constipation/diarrhea Nausea: -Likely secondary to constipation with overflow diarrhea -Potential concern for gastroparesis, in the setting of multiple vitamin deficiency and Parkinson's -Patient was previously advised to take MiraLAX twice daily, but would frequently take only 1 dose and then will follow that up with taking him of Imodium -Patient concerned about numerous trips to the bathroom for bowel movements while on medications -Previously was being seen by Arnav PEREZ for irritable bowel syndrome in the setting of cyclical constipation diarrhea, previously had relief of symptoms following colonoscopy prep with subsequent incremental return of symptoms over time -Advised patient to hold off on taking daily MiraLAX in the current setting, with the advisement of increased one-time per week dosing starting at 6 doses of MiraLAX any attempt to "bowel prep" and limit further symptoms/concern of symptoms throughout the day/concern of daily MiraLAX causing over correction of constipation -Advised patient to no longer take Imodium and attempt to stop bowel movements as this seemingly only increases the constipation effect that she has on baseline B12 deficiency: -Visually secondary to poor oral intake of vitamin [id number] foods -B12 low on admission -Started on vitamin B12 1000 mcg daily for repletion -Recheck in 1 month for determination of absorption Parkinson's disease: -Continue Sinemet 1.5 tabs 4 times daily per neurology Chest pain: -Unlikely that this is cardiac in nature, more likely secondary to GI distention -EKG demonstrating indeterminate age septal infarct, with out acute changes -Troponins trended x3 all within normal limit -Dobutamine stress echo unremarkable for wall motion abnormalities Vitamin deficiency: -Continue repletion of thiamine and folate daily -Recheck in 1 month (2) B12 deficiency: (3) Parkinsons disease: (4) Chest pain: (5) Paroxysmal atrial tachycardia: (6) Adjustment disorder with anxiety: (7) Idiopathic polyneuropathy: Total Time Total Time Spent Total Time Spent (In Minutes): <30 Discharge Plan Discharge Items Patient Disposition: Home - Self-Care Reason For Visit: CHEST PAIN R/O [place] Discharge Diagnosis: Constipation Condition on Discharge: Good Activity: Per Instructions section Non-emergency contact: Primary Care Provider and 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 If you need to change this appoin tment, please call [phone].) Diet: Regular Addtl Attending Provider Instructions: You were seen and admitted following concern of new onset chest pain, and nausea following several days of food avoidance. During this admission, it was discovered that you had a very low vitamin B12 level; however, an extensive heart work-up did not demonstrate a new abnormality of your heart structure or electrical activity. In this setting, and given your Parkinson's disease and history of irritable bowel syndrome this new episode seems more likely to be due to an increase in stretch of your intestines due to worsening of your constipation with the use of Imodium. Now that you are being discharged, tonight when you get home you should take 6 doses of your Miralax in an effort to effectively repeat a "bowel prep" that had previously helped you and relieved your symptoms. From this once you have completely emptied your bowels and over the next several days you should have continued relief of your symptoms, and be able to eat and drink food without nausea or recurrence of this pain. Going forward you may not need to take the Miralax daily, but instead repeat these kinds of "bowel preparations" once a week. As we discussed, your least active day doing things outside the house is Saturday; in order to limit the extended periods of time with which you have to worry about your bowel movement frequency and how it impacts your daily life, you should take the same 6 doses of Miralax for this "bowel prep" on Saturday evening to potentially limit the increased bathroom visits to only Saturday. The amount that you need to take in order to achieve this "bowel prep" can fluctuate over time but for now you should use this dose as a starting point. In one month, you will have blood tests of your vitamin levels with your primary care provider for examination of the need for continued vitamin supplementation. Pending Studies at Discharge: No Stand-Alone Forms: My [facility], Smoking Cessation Medications and DC Order Prescriptions: New thiamine HCl (vitamin B1) [Vitamin B-1] 100 mg Tablet 100 mg PO QAM Qty: 30 RF: 0 folic acid 1 mg Tablet 1 mg PO QAM Qty: 30 RF: 0 B12 Active 1,000 mcg tablet,chewable 1,000 mcg PO DAILY Qty: 30 RF: 0 Continued alprazolam 0.25 mg tablet 0.25 mg PO Q6H PRN (Reason: anxiety) Qty: 90 RF: 0 trazodone 50 mg tablet 50 mg PO HS Qty: 90 RF: 1 ondansetron HCl 4 mg tablet 4 mg PO BID PRN (Reason: nausea and vomiting) 30 Days Qty: 20 RF: 0 polyethylene glycol 3350 [Miralax] 17 gram Powder In Packet 17 g PO BID Qty: 60 RF: 0 venlafaxine 37.5 mg capsule,extended release 24hr 37.5 mg PO QAM RF: 0 venlafaxine 75 mg capsule,extended release 24hr 150 mg PO QAM RF: 0 gabapentin 800 mg tablet 800 mg PO HS RF: 0 metoprolol succinate 25 mg tablet extended release 24 hr 25 mg PO QAM RF: 0 carbidopa-levodopa 25-100 mg tablet 1.5 tab PO QID RF: 0 Discharge Orders: Discharge Order (Routine); Ordered 12/03/19 Ordered By: Josafat Stovall Admission Data Admit Date/Time: 12/01/19 14:14 Attending Provider: Lance Suresh Admit Provider: Jamison Gallegos Primary Care Provider: Loyd Bustillos Other Providers: Jamison Gallegos ; Harlan Cobian Other Interventions: Discharge Summary Assessment (RN) Last Done: 12/03/19 15:20 Supervising Physician Co-Signing Physician Notes I personally examined the patient and verified all buck points of history and ex am, discussed case, and agree with decision making with Dr Stovall. feelign up to going home. discussed regimen she expresses understanding vitals noted nad heent nc at mmmm breathing unlabored no accessory muscles chest pain - noncardiac- almost certainly GI nausea/pain/chronic constipation w overflow - seems to have a better understanding of this now. miralax. ok to do as outpt severe B12 deficiency - replete, replete folate, continue thiamine; f/u b12 in about a month to ensure PO replacement adequate - if not then switch to IM macrocytic anemia related to above - replete b12 otherwise as above Resident Activity Tracking Resident Involvement: Resident Care Provided Care Provided: Adult Hospital Medicine
[2019-12-03] MEDS: ALPRAZolam 0.5 MG TABLET PO PRN (16:45)
--- NOTE | 2019-12-03 19:31 | Billing Data ---
Date of Service December 03, 2019 Coding Level of Care Code 54124 OBS Care - Discharge
== END 2019-12-03 16:59 | disposition home or self-care (01) ==
LOC: ED 09:11 → 2N 09:11 → SUATTDRO 14:14 → 2N 15:26

== ENCOUNTER 2020-09-19 10:22 | Observation (INO) ==
[2020-09-19] MEDS ORDERED: ONDANSETRON INJ 2 MG/ML 2 ML VIAL IV STA ×2 (11:05→14:56)
[2020-09-19] MEDS ORDERED: SODIUM CHLORIDE 0.9% 1000ML 1,000 ML IV ONE (11:05)
[2020-09-19] MEDS ORDERED: FAMOTIDINE 20MG IV PUSH 20 MG/5 ML SYR IV STA (11:05)
[2020-09-19] MEDS ORDERED: ACETAMINOPHEN 1,000 MG/100 ML VIAL IV STA (11:06)
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
[2020-09-19 11:22] LABS: Basophils # (auto) 0.01 K/uL (0-0.2); Basophils % (auto) 0.3 %; Eosinophils # (auto) 0.13 K/uL (0-0.5); Eosinophils % (auto) 3.3 %; Hemoglobin 13.8 g/dL (12.0-16.0); Immature Granulocytes # (auto) 0.01 K/uL (0.00-0.02); Immature Granulocytes % (auto) 0.3 %; Lymphocytes # (auto) 0.62 K/uL (1.2-3.4); Lymphocytes % (auto) 15.8 %; Mean Corpuscular Hemoglobin 31.9 pg (25-34); Mean Corpuscular Hgb Conc 32.9 g/dL (32-36); Mean Corpuscular Volume 97.2 fL (80-100); Mean Platelet Volume 10.7 fL (7.4-10.4); Monocytes # (auto) 0.36 K/uL (0.11-0.59); Monocytes % (auto) 9.2 %; Neutrophils % (auto) 71.1 %; Platelet Count 168 K/uL (130-400); RDW Coefficient of Variation 14.3 % (11.5-14.5); RDW Standard Deviation 50.9 fL (36.4-46.3); Red Blood Count 4.32 M/uL (4.2-5.4); White Blood Count 3.93 K/uL (4.8-10.8)
--- NOTE | 2020-09-19 11:44 | XRay Report ---
XR chest 1V portable CLINICAL HISTORY: Atypical chest pain COMPARISON STUDY: 08/09/2020 FINDINGS: The cardiac and mediastinal contours remain stable. There is stable interstitial thickening , unchanged from the prior study. There is no lobar consolidation. There are no pleural effusions.[ IMPRESSION: 1. Stable bilateral interstitial opacities. Likely diagnostic considerations include chronic intersti tial lung disease, a persistent/recurrent interstitial infectious/inflammatory process, or less likel y mild congestive failure/edema. Clinical and radiographic follow-up are recommended. ACT 112: Negative or not required by law. Electronically signed by: Raymundo Delgado M.D. 09/19/2020 11:43 AM
[2020-09-19 11:48] LABS: Alanine Aminotransferase 15 U/L (12-78); Aspartate Aminotransferase 13 U/L (15-37); BUN Creatinine Ratio 12.1 (10-20); Bilirubin Direct 0.1 mg/dl (0-0.2); Blood Urea Nitrogen 10 mg/dl (7-18); Calcium 9.2 mg/dl (8.5-10.1); Carbon Dioxide 28 mmol/L (21-32); Chloride 102 mmol/L (98-107); Est GFR (Non-African American) 64.7 ml/min; Glucose 96 mg/dl (70-99); Lipase 169 U/L (73-393); Magnesium 2.1 mg/dl (1.8-2.4); Potassium 4.1 mmol/L (3.5-5.1); Sodium 133 mmol/L (136-145)
[2020-09-19 11:57] LABS: Albumin Globulin Ratio 0.9 (0.9-2); Alkaline Phosphatase 67 U/L (45-117); Bilirubin,Total 0.4 mg/dl (0.2-1); Globulin 4.3 gm/dl (2.5-4.0); Phosphorus 2.5 mg/dl (2.5-4.9); Total Protein 8.3 gm/dl (6.4-8.2); Troponin I < 0.015 ng/ml (0-0.045)
[2020-09-19] MEDS ORDERED: OPTIRAY 320 100ml IV ONE (11:58)
[2020-09-19 12:01] LABS: Appearance Urine Clear (Clear); Bilirubin Urine Negative (Negative); Blood Urine Negative (Negative); Color Urine Yellow; Glucose Urine UA Negative (Negative); Ketones Urine Trace (Negative); Leukocyte Esterase Urine Negative (Negative); Nitrite Urine Negative (Negative); Protein Urine Negative (Negative); Specific Gravity Urine 1.015 (1.000-1.030); Urobilinogen Urine Negative (Negative)
--- NOTE | 2020-09-19 12:20 | CT Scan Report ---
CT abd pelvis IV con only CLINICAL HISTORY: Abdominal pain, nausea, constipation COMPARISON STUDY: 09/12/2020 TECHNIQUE: The patient was scanned in a dynamic helical fashion during intravenous administration of 93 cc of Optiray 320 A dose lowering technique was utilized adhering to the principles of ALARA. CT DOSE: 265.54 mGy.cm FINDINGS: Lower chest: There is subpleural reticulation with traction bronchiectasis. There are no significant pleural effusions Liver: The contrast-enhanced liver is normal in size, contour, and attenuation. There is no intrahepa tic biliary ductal dilatation. The hepatic veins and portal veins are patent. Gallbladder: Unremarkable. Spleen: Normal in size and attenuation. Pancreas: Unremarkable. Adrenal glands: Unremarkable. Kidneys: Small renal cortical hypodensities are felt to represent cysts. There is no hydronephrosis. No solid renal masses are visualized Bowel: There are no transition zones indicate bowel obstruction. There is colonic diverticulosis. The re is no evidence of acute diverticulitis. There is scattered small bowel and colonic air-fluid level s. There are no findings to indicate acute appendicitis. There is a moderate amount stool within the cecum. Peritoneum: There is no intraperitoneal free air or abdominal ascites. Vasculature: The abdominal aorta is normal in course and caliber. Adenopathy: None. Pelvic viscera: The uterus is surgically absent Skeletal structures: No destructive osseous lesions are seen. IMPRESSION: 1. No evidence of bowel obstruction. No evidence of free air 2. Colonic diverticulosis. No evidence of acute diverticulitis 3. No evidence of acute appendicitis 4. Scattered colonic and small bowel air fluid levels 5. Interstitial pulmonary fibrotic changes ACT 112: Negative or not required by law. Electronically signed by: Raymundo Delgado M.D. 09/19/2020 12:19 PM
--- NOTE | 2020-09-19 14:09 | Electrocardiogram Report ---
Test Reason : Blood Pressure : / mmHG Vent. Rate : 064 BPM Atrial Rate : 064 BPM P-R Int : 142 ms QRS Dur : 084 ms QT Int : 400 ms P-R-T Axes : 075 029 037 degrees QTc Int : 412 ms Normal sinus rhythm Septal infarct (cited on or before 19-SEP-2020) Abnormal ECG When compared with ECG of 12-SEP-2020 22:02, No significant change was found Confirmed by Saad Nowak ([id number]) on 09/19/2020 2:09:18 PM Referred By: REFERRED SELF Confirmed By:Saad Nowak
[2020-09-19] MEDS ORDERED: CARBIDOPA/LEVODOPA 25/100MG TAB PO STA ×2 (14:56→15:47)
[2020-09-19] MEDS ORDERED: LORazepam 0.25 MG/0.5 ML VIAL IV STA (15:12)
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
[2020-09-19] MEDS ORDERED: ALPRAZolam 0.25 MG TABLET PO PRN (20:28)
[2020-09-19] MEDS ORDERED: POLYETHYLENE (MIRALAX) 17 GM PACK PO PRN (20:28)
[2020-09-19] MEDS ORDERED: DOCUSATE SODIUM 100 MG CAP PO PRN (20:28)
[2020-09-19] MEDS ORDERED: bisacodyL 10 MG SUPP PR PRN (20:28)
[2020-09-19] MEDS ORDERED: MULTI-VITAMIN INFUSION 10 ML, THIAMINE HCL 100 MG, FOLIC ACID 1 MG in SODIUM CHLORIDE 0... IV ONE (21:00)
[2020-09-19] MEDS: ALPRAZolam 0.25 MG TABLET PO PRN (21:39)
[2020-09-19] MEDS: traZODone HCL 50 MG TAB PO SCH (21:40)
[2020-09-19] MEDS: GABAPENTIN 800 MG TAB PO SCH (21:41)
[2020-09-19] MEDS: CARBIDOPA/LEVODOPA 25/100MG TAB PO SCH (21:41)
[2020-09-20] MEDS: ONDANSETRON INJ 2 MG/ML 2 ML VIAL IV PRN ×2 (06:40→23:02)
[2020-09-20 07:55] LABS: Basophils # (auto) 0.01 K/uL (0-0.2); Basophils % (auto) 0.3 %; Eosinophils # (auto) 0.31 K/uL (0-0.5); Eosinophils % (auto) 8.1 %; Hematocrit (blood only) 37.8 % (37-47); Hemoglobin 12.3 g/dL (12.0-16.0); Lymphocytes % (auto) 18.3 %; Mean Corpuscular Hemoglobin 31.4 pg (25-34); Mean Corpuscular Hgb Conc 32.5 g/dL (32-36); Mean Corpuscular Volume 96.4 fL (80-100); Mean Platelet Volume 10.9 fL (7.4-10.4); Monocytes # (auto) 0.34 K/uL (0.11-0.59); Monocytes % (auto) 8.9 %; Neutrophils # (auto) 2.46 K/uL (1.4-6.5); Neutrophils % (auto) 64.4 %; Platelet Count 151 K/uL (130-400); RDW Coefficient of Variation 14.7 % (11.5-14.5); RDW Standard Deviation 51.2 fL (36.4-46.3); Red Blood Count 3.92 M/uL (4.2-5.4); White Blood Count 3.82 K/uL (4.8-10.8)
[2020-09-20 08:48] LABS: BUN Creatinine Ratio 8.2 (10-20); Calcium 8.6 mg/dl (8.5-10.1); Creatinine Clr Calc Pharmacy 48.2 ml/min; Est GFR (African American) 78.3 ml/min; Est GFR (Non-African American) 67.5 ml/min; Potassium 3.6 mmol/L (3.5-5.1)
[2020-09-20] MEDS: METOPROLOL SUCC 25MG EXT REL TAB PO SCH (08:51)
[2020-09-20] MEDS: DICYCLOMINE HCL 10 MG CAP PO SCH (08:51)
[2020-09-20] MEDS: CARBIDOPA/LEVODOPA 25/100MG TAB PO SCH ×4 (08:51→19:32)
[2020-09-20] MEDS: ALPRAZolam 0.25 MG TABLET PO PRN ×2 (08:51→21:07)
[2020-09-20] MEDS: VENLAFAXINE HCL XR 150 MG CAPXR PO SCH (08:51)
[2020-09-20] MEDS: DOCUSATE SODIUM/SENNA 50/8.6MG TAB PO SCH (08:51)
[2020-09-20] MEDS: VENLAFAXINE HCL XR 37.5 MG CAPXR PO SCH (08:51)
[2020-09-20] MEDS: AMANTADINE HCL 100 MG CAPSULE PO SCH (08:51)
[2020-09-20] MEDS: FAMOTIDINE 40 MG TABLET PO SCH (08:52)
[2020-09-20] MEDS: CARBIDOPA/LEVODOPA 50/200MG EXT REL TAB PO SCH (08:52)
[2020-09-20] MEDS: CIPROFLOXACIN / D5W 400 MG/200 ML BAG IV SCH ×2 (10:50→21:05)
[2020-09-20] MEDS: metroNIDAZOLE 500 MG/100 ML BAG IV SCH ×2 (12:35→19:31)
--- NOTE | 2020-09-20 17:28 | Hospitalist Progress Note ---
Date of Service September 20, 2020 Assessment & Plan (1) Abdominal pain: Plan: * There appears to be no acute pathology to explain patient's abdominal pain * She is exquisitely tender in the left lower quadrant. There were diverticulosis seen on imaging and her CT scan was done without contrast. Perhaps she has subclinical diverticulitis * To believe the bigger issue here is the fact that she is noncompliant with a gluten-free/lactose-free diet * She is unable to tell me who told her or why she is to be on a gluten-free/lactose-free diet. She did have an EGD done 11/21 which was reviewed by myself. No samples obtained for pathology at that time as no significant inflammation identified. * Will obtain a celiac panel * Will start empiric antibiotic therapy for possible subclinical diverticulitis (Cipro/Flagyl) * Lengthy discussion with patient regarding gluten-free/lactose-free diet. Will consult dietary for education * Strongly suspect gluten intolerance/celiac's disease. It would explain her waxing and waning abdominal discomfort, nausea, diarrhea mixed with c onstipation along with her documented history of folate/B12 deficiency, anemia, in addition to her weight loss over the past 2 years. * Will need a GI follow-up * Will consider GI consult in house if no improvement with current plan as outlined above (2) Nausea: Plan: * See above (3) CKD (chronic kidney disease), stage III: Plan: * Stable (4) Adjustment disorder with anxiety: Plan: * Patient continued on Effexor, (5) Fibromyalgia: Plan: * Chronic with associated chronic pain. Continued on gabapentin (6) Parkinsonism: Plan: * Continue Sinemet Plan: Plan of care to be discussed with Dr. Teague. Further orders as warranted. Admission and Anticipated Discharge Date Admission Date: September 19, 2020 Subjective Mrs. Hurst is a 79-year-old white female with a past medical history of Parkinson's, fibromyalgia, chronic fatigue, CKD, anxiety, IBS, migraines, and reported diastolic dysfunction. She was hospitalized on 09/19 due to intractable abdominal pain and nausea. Patient reports ongoing symptoms X 2 years but progressively getting worse over the past 6 months. She has had approximately a 30 pound weight loss over the past 2 years. Has been seen by GI. Recently, seen in our ER on 09/12. CT of the abdomen and pelvis performed showing no acute intra-abdominal process. Followed up with GI on 09/13 as symptoms thought to be related to constipation. Was prescribed Trulance but failed to pick this up at the pharmacy. Subsequently, went to the emergency room at [facility] where she was diagnosed with "constipation" per patient. Was discharged to home and return to our emergency department with continued abdominal pain. There her work-up was unremarkable. CBC and metabolic panel were essentially within normal limits. Lipase was 169. Urinalysis was not grossly infected. Covid PCR was negative. CT of the abdomen and pelvis with IV contrast only showed interstitial fibrotic changes of the lungs without bowel obstruction or diverticulitis. Diverticulosis noted. Upon further prompting, patient does have a reported allergy to gluten and lactose. She reports that she does not maintain/adhere to her gluten-free and lactose free diet. Claims that she lives alone and is uncertain which foods contain gluten and/or how to prepare meals that are gluten-free/lactose-free. Over the past 6 months, patient has had intermittent abdominal discomfort, mixed with intermittent diarrhea/constipation/nausea. No vomiting. No blood in her stools. Today she is complaining mostly of left lower quadrant pain. Review of Systems Review of Systems: All systems reviewed and are unremarkable except as noted in HPI and below As per above, patient complains of nausea and left lower quadrant abdominal pain. Otherwise, she denies fevers, chills, headache, nasal congestion, sore throat, cough, chest pain, shortness of breath, vomiting, dysuria, hematuria, frequency, skin lesions or rashes. Physical Exam Physical Exam: General: Resting comfortably in her hospital bed. Appears chronically ill/cachectic but not acutely ill or toxic Neck: No JVD. Negative hepatojugular reflex Cardiac: RRR without M/G/R Lungs: CTA without W/R/R Abdomen: Normoactive X4. Abdomen soft, nondistended. Exquisite tenderness noted in the LLQ Extremities: No peripheral clubbing cyanosis or edema Neuro: A&O X4 cranial nerves II through XII are grossly intact no focal neuro deficits Skin: No obvious skin lesions or rashes Results & Data Results & Data ([facility]) Vital Signs (Past 12 Hours) Vital Signs Temp Pulse Resp BP Pulse Ox 09/20/20 16:40 36.6 C 64 18 138/77 100 07/20/21 08:50 74 157/76 H 09/20/20 08:13 36.7 C 74 18 136/82 98 Laboratory Results 09/20/20 07:26 09/20/20 07:26 PG Care Time/CCT Total # of Minutes Spent Total Time Spent with Patient: Total time spent is greater than 50% in coordination of care (as documented) at patient's floor/unit and/or counseling patient: C[place] [address] Subseq Obs Care Lvl 2 Patient Type Established History Expanded Problem Focused Exam Expanded Problem Focused Medical Decision Making Moderate Complexity Diagnoses Abdominal pain R10.84 Abdominal location: generalized Nausea R11.0 CKD (chronic kidney disease), stage III N18.3 Adjustment disorder with anxiety F43.22 Fibromyalgia M79.7 Parkinsonism G20 (1) Abdominal pain Abdominal location: generalized Qualified Code(s): R10.84 - Generalized abdominal pain
[2020-09-20] MEDS: GABAPENTIN 800 MG TAB PO SCH (21:04)
[2020-09-20] MEDS: traZODone HCL 50 MG TAB PO SCH (21:04)
[2020-09-21] MEDS: metroNIDAZOLE 500 MG/100 ML BAG IV SCH ×2 (03:14→12:03)
[2020-09-21 06:29] LABS: Eosinophils # (auto) 0.31 K/uL (0-0.5); Eosinophils % (auto) 7.5 %; Hematocrit (blood only) 35.3 % (37-47); Hemoglobin 11.8 g/dL (12.0-16.0); Immature Granulocytes # (auto) 0.01 K/uL (0.00-0.02); Immature Granulocytes % (auto) 0.2 %; Lymphocytes # (auto) 0.95 K/uL (1.2-3.4); Lymphocytes % (auto) 23.1 %; Mean Corpuscular Hemoglobin 31.5 pg (25-34); Mean Corpuscular Hgb Conc 33.4 g/dL (32-36); Mean Corpuscular Volume 94.1 fL (80-100); Mean Platelet Volume 10.2 fL (7.4-10.4); Monocytes # (auto) 0.43 K/uL (0.11-0.59); Monocytes % (auto) 10.5 %; Neutrophils # (auto) 2.41 K/uL (1.4-6.5); Neutrophils % (auto) 58.7 %; Platelet Count 137 K/uL (130-400); RDW Coefficient of Variation 14.2 % (11.5-14.5); RDW Standard Deviation 48.8 fL (36.4-46.3); Red Blood Count 3.75 M/uL (4.2-5.4); White Blood Count 4.11 K/uL (4.8-10.8)
[2020-09-21 07:01] LABS: Calcium 8.7 mg/dl (8.5-10.1); Creatinine Clr Calc Pharmacy 47.7 ml/min; Est GFR (African American) 77.2 ml/min; Est GFR (Non-African American) 66.6 ml/min; Magnesium 1.9 mg/dl (1.8-2.4); Potassium 3.7 mmol/L (3.5-5.1)
[2020-09-21] MEDS: ONDANSETRON INJ 2 MG/ML 2 ML VIAL IV PRN (08:07)
[2020-09-21] MEDS: CARBIDOPA/LEVODOPA 50/200MG EXT REL TAB PO SCH (08:15)
[2020-09-21] MEDS: AMANTADINE HCL 100 MG CAPSULE PO SCH (08:15)
[2020-09-21] MEDS: VENLAFAXINE HCL XR 150 MG CAPXR PO SCH (08:15)
[2020-09-21] MEDS: DOCUSATE SODIUM/SENNA 50/8.6MG TAB PO SCH (08:16)
[2020-09-21] MEDS: METOPROLOL SUCC 25MG EXT REL TAB PO SCH (08:16)
[2020-09-21] MEDS: VENLAFAXINE HCL XR 37.5 MG CAPXR PO SCH (08:16)
[2020-09-21] MEDS: FAMOTIDINE 40 MG TABLET PO SCH (08:16)
[2020-09-21] MEDS: DICYCLOMINE HCL 10 MG CAP PO SCH (08:17)
[2020-09-21] MEDS: CARBIDOPA/LEVODOPA 25/100MG TAB PO SCH ×3 (08:17→15:31)
[2020-09-21] MEDS: CIPROFLOXACIN / D5W 400 MG/200 ML BAG IV SCH (09:55)
--- NOTE | 2020-09-21 16:43 | Discharge Summary ---
Date of Service September 21, 2020 Admission HPI Per Admitting Provider Aranza Hurst is a 79yo female with history of Parkinson's Disease presenting with nausea. Patient reposts developing severe nausea immediately following meals, no vomiting or diarrhea. She has been unable to eat. She has been taking her medications. Has lost some weight - 5-10 pounds in the last several weeks. Also reports being afraid to eat because she is concerned that it will lead to nausea, diarrhea or abdominal pain. Also with intermittent episodes of severe LLQ abdominal pain. Not associated with meals. Stabbing and severe. Patient with chronic constipation. She takes Miralax at home frequently which often leads to severe diarrhea and occasional incontinence. She has occasional chest discomfort - central, substernal, associated with tightness in throat as well. Non-exertional, non-pleuritic. No dysphagia/odynophagia or globus sensation. Patient follows with [facility]. She was recently seen at [facility] for similar complaints and was treated with anti-emetics and sent home with Miralax. Admission Exam Per Admitting Provider General: thin female patient resting comfortably, NAD, non-toxic in appearance, AA&O x 4 Skin: warm, dry, intact, no rashes or lesions HEENT: NC/AT, PERRL, EOMI, anicteric sclera, conjunctiva without injection, external ear normal to inspection and nontender, nares patent, moist mucus membranes, dentition intact, no oropharyngeal lesions, neck supple, trachea midline, no LAD, no thyromegaly, no JVD Heart: +S1/S2, regular, no m/r/g Lungs: equal air entry bilaterally, no rales/rhonchi/wheezes Abd: +BS, soft, LLQ tenderness with no rebound/guarding/peritoneal signs, no masses/organomegaly/ascites Ext: warm, 2+ pulses in UE/LE bilaterally, no clubbing/cyanosis or edema Neuro: nonfocal, patient AA&O x 4, speech intact, no facial droop, moving all extremities on command with equal strength 5/5, +pill rolling tremor noted in left hand Principal Diagnosis Working diagnoses: 1. Abdominal painlikely multifactorial. Seems to have a component of subclinical diverticulitis along with chronic abdominal pain (likely related to noncompliance with gluten-free/lactose-free diet). Discharge Exam General: Resting comfortably in her hospital bed. Looks very comfortable today. She has showered and her hair is done. She does not look ill as she did yesterday Neck: No JVD. Negative hepatojugular reflex Cardiac: RRR without M/G/R Lungs: CTA without W/R/R Abdomen: Normoactive X4. Soft. No guarding or rigidity. She is nontender in the left lower quadrant today. Nontender in all other quadrants. Extremities: No peripheral clubbing cyanosis or edema Neuro: A&O X4 cranial nerves II through XII are grossly intact no focal neuro deficits Skin: No obvious skin lesions or rashes Discharge Data Allergies Allergy/AdvReac Type Severity Reaction Status Date / Time Penicillins Allergy Severe RASH Verified 09/13/20 16:54 gluten Allergy Intermediate GI SYMPTOMS Verified 09/13/20 16:54 lactose Allergy Intermediate GI SYMPTOMS Verified 09/13/20 16:54 Sulfa (Sulfonamide Allergy Intermediate RASH Verified 09/13/20 16:54 Antibiotics) sulfamethoxazole Allergy Intermediate RASH Verified 09/13/20 16:54 doxycycline Allergy Unknown Unknown Verified 09/13/20 16:54 ropinirole Allergy Unknown Unknown Verified 09/13/20 16:54 Consultations 09/19/20 14:56 ED Decision to Admit Stat Procedures Performed None Ordered Studies 09/19/20 11:07 CT abd pelvis IV con only Stat IMPRESSION: 1. No evidence of bowel obstruction. No evidence of free air 2. Colonic diverticulosis. No evidence of acute diverticulitis 3. No evidence of acute appendicitis 4. Scattered colonic and small bowel air fluid levels 5. Interstitial pulmonary fibrotic changes Hospital Course (1) Abdominal pain: * Initially, no obvious abnormality to explain patient's abdominal discomfort. Given her exquisite tenderness in the left lower quadrant on exam and diverticulosis seen on exam, it was thought that she may have had subclinical diverticulitis. Her CT was performed without contrast. She was empirically started on Cipro/Flagyl and responded favorably. On hospital day #2, her abdominal pain in the left lower quadrant had completely resolved and she was tolerating oral intake. * She does seem to have a chronic component as well. She is to be on a gluten-free/lactose-free diet and admits that she is noncompliant as she "does not know what to make or what to eat". * This noncompliance with her diet is likely the cause of her chronic/inte rmittent discomfort (with bloating and gas, cramping pain), nausea, and mixed diarrhea/constipation not to mention her weight loss over the past 2 years. * I did have a lengthy discussion with the patient regarding the importance of dietary compliance * Dietitian was consulted and has since met with the patient for education. May benefit for continued follow-up visits. * Lengthy discussion with patient regarding cross-contamination * Explained that it will take at least 4 to 6 weeks for patient to really reap the benefits of maintaining a gluten-free/lactose-free diet. * She should follow-up with GI * At this point time, she is medically and hemodynamically stable for discharge to home with continued antibiotic therapy for subclinical diverticulitis and to maintain a gluten-free/lactose-free diet (2) Nausea: * See above (3) CKD (chronic kidney disease), stage III: * Stable (4) Adjustment disorder with anxiety: * Patient continued on Effexor, (5) Fibromyalgia: * Chronic with associated chronic pain. Continued on gabapentin (6) Parkinsonism: * Continue Sinemet Plan of care to be discussed with Dr. Teague. Further orders as warranted. Total Time Total Time Spent Total Time Spent (In Minutes): 25 Discharge Plan Discharge Items Patient Disposition: Home - Self-Care Reason For Visit: INTRACTABLE NAUSEA Discharge Diagnosis: 1. Acute on chronic Abdominal Pain- Suspect subclinical Diverticulitis in addition to pain from noncompliance with Gluten Free/Lactose Free diet Activity: Resume your previous activity Non-emergency contact: Primary Care Provider and Remittance Clerk Call non-emergency contact if: you have any medication questions and your symptoms worsen Follow-up/Referrals: Loyd Bustillos MD [Primary Care Provider] - 09/28/20 3:30 pm Svitlana Sarabia CRNP [Nurse Practitioner] - Diet: Gluten Free, Low Fiber and Lactose Intolerant Addtl Attending Provider Instructions: - Complete full course of Cipro/Flagyl for subclinical diverticulitis (likely the cause of the pain in your left lower side) - This ongoing (generalized pain), nausea, and mixed diarrhea/constipation with weight loss if likely related to the fact that you are not compliant with your Lactose Free and gluten free diet. - Dietary Compliance is IMPERATIVE in addition to avoid cross contamination as discussed - I do encourage that you follow up with GI and consider subsequent follow up with dietary for continued education - return to the ED for new or worsening symptoms. Pending Studies at Discharge: Yes Studies:: Celiac Panel Stand-Alone Forms: My [facility] Medications and DC Order Prescriptions: New ciprofloxacin HCl 500 mg tablet 500 mg PO BID Qty: 11 RF: 0 metronidazole [Flagyl] 500 mg tablet 500 mg PO TID Qty: 17 RF: 0 ondansetron 4 mg tablet,disintegrating 4 mg PO DAILY PRN (Reason: nausea and vomiting) 30 Days Qty: 30 RF: 0 Continued venlafaxine 75 mg capsule,extended release 24hr 150 mg PO QAM Qty: 180 RF: 3 gabapentin 800 mg tablet 800 mg PO HS Qty: 30 RF: 5 trazodone 50 mg tablet 50 mg PO HS Qty: 90 RF: 1 venlafaxine 37.5 mg capsule,extended release 24hr 37.5 mg PO QAM Qty: 30 RF: 5 alprazolam 0.25 mg tablet 0.25 mg PO Q8H PRN (Reason: anxiety) Qty: 90 RF: 0 atorvastatin 20 mg tablet 20 mg PO QAM Qty: 90 RF: 3 carbidopa-levodopa 25-100 mg tablet 2 tab PO QID 30 Days Qty: 240 RF: 5 benzonatate [Tessalon Perles] 100 mg capsule 100 mg PO TID PRN (Reason: cough) Qty: 20 RF: 0 amantadine HCl 100 mg capsule 100 mg PO QAM RF: 0 metoprolol succinate 25 mg tablet extended release 24 hr 25 mg PO QAM RF: 0 mecobalamin (vitamin B12) 1,000 mcg tablet,disintegrating 1,000 mcg sublingual QAM RF: 0 dicyclomine 10 mg capsule 10 mg PO DAILY RF: 0 polyethylene glycol 3350 [Miralax] 17 gram powder in packet 17 g PO BID PRN (Reason: Constipation) RF: 0 carbidopa-levodopa 50-200 mg tablet extended release 1 tab PO QAM RF: 0 Discharge Orders: Discharge Order (Routine); Ordered 09/21/20 Ordered By: Bridget Jose/Other Patient Handouts: Gluten-Free Diet for Celiac Disease, Tips for Lactose Intolerance, Discharge Instructions for ... Admission Data Admit Date/Time: 09/19/20 16:01 Attending Provider: Wilberto Teague Admit Provider: Soco Das Primary Care Provider: Loyd Bustillos Other Providers: Soco Das Other Interventions: Discharge Summary Assessment (RN) Last Done: 09/21/20 15:22 Supervising Physician Co-Signing Physician Notes Patient seen and examined on the day of discharge. I agree with the discharge summary by Bridget GRANT. I have reviewed the chart including labs, imaging and plans for discharge. 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
[2020-09-23 03:18] LABS: IgA Serum 117 mg/dL (70-320); Tis Trans IgA 1 U/mL
== END 2020-09-21 16:07 | disposition home or self-care (01) ==
LOC: ED 10:22 → 3N 10:22 → SUATTDRO 16:01 → 3N 19:37

== ENCOUNTER 2021-12-19 15:43 | Observation (INO) ==
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
[2021-12-19] MEDS ORDERED: SODIUM CHLORIDE 0.9% 1000ML 500 ML IV SCH (16:00)
[2021-12-19 16:13] LABS: Basophils # (auto) 0.01 K/uL (0-0.2); Basophils % (auto) 0.2 %; Eosinophils # (auto) 0.16 K/uL (0-0.50); Hematocrit (blood only) 35.7 % (34.1-44.9); Hemoglobin 11.7 g/dl (12.0-16.0); Immature Granulocytes # (auto) 0.02 K/uL (0.00-0.02); Immature Granulocytes % (auto) 0.4 %; Lymphocytes # (auto) 0.65 K/uL (1.2-3.4); Mean Corpuscular Hemoglobin 32.6 pg (25.0-34.0); Mean Corpuscular Hgb Conc 32.8 g/dL (32.0-36.0); Mean Corpuscular Volume 99.4 fL (80.0-100.0); Mean Platelet Volume 12.2 fL (9.4-12.3); Monocytes # (auto) 0.64 K/uL (0.24-0.82); Monocytes % (auto) 11.8 %; Neutrophils # (auto) 3.94 K/uL (1.4-6.5); Neutrophils % (auto) 72.6 %; Platelet Count 136 K/uL (130-400); RDW Coefficient of Variation 13.1 % (11.5-14.5); RDW Standard Deviation 47.9 fL (36.4-46.3); Red Blood Count 3.59 M/uL (3.93-5.22); White Blood Count 5.42 K/ul (4.8-10.8)
[2021-12-19 16:23] LABS: Prothrombin Time 10.7 Seconds (9.0-12.0)
[2021-12-19 16:36] LABS: Anion Gap 6 (3-11); BUN Creatinine Ratio 26.6 (10-20); Blood Urea Nitrogen 21 mg/dl (6-23); Calcium 9.9 mg/dl (8.5-10.1); Carbon Dioxide 28 mmol/L (21-32); Chloride 106 mmol/L (98-107); Est GFR (African American) 81.9 ml/min; Est GFR (Non-African American) 70.7 ml/min; Glucose 94 mg/dl (70-99(Fasting)); Potassium 4.3 mmol/L (3.5-5.1); Sodium 140 mmol/L (136-145)
--- NOTE | 2021-12-19 16:37 | CT Scan Report ---
HEAD CT NONCONTRAST CT DOSE: 614.27 mGy.cm HISTORY: Altered mental status. TECHNIQUE: Multiaxial CT images of the head were performed without the use of intravenous contrast. A utomated exposure control was utilized for this study. A dose lowering technique was utilized adheri ng to the principles of ALARA. Comparison: Head CT 12/01/2019. Findings: The paranasal sinuses and mastoid air cells are clear. The calvarium and skull base are int act. The ventricles and sulci are within normal limits. There is no mass, hematoma, midline shift, or acute infarct. Impression: No acute intracranial abnormality. ACT 112: Negative or not required by law. Electronically signed by: Hiren Campbell M.D. 12/19/2021 4:35 PM
[2021-12-19 16:39] LABS: Troponin I High Sensitivity 8.8 pg/ml (0-14)
[2021-12-19 16:42] LABS: Base Excess VBG 2.7 mEq/L; HCO3 VBG 28 mmol/L; Oxygen Saturation VBG < 60.0 %; PCO2 VBG 44 mmHg (38-50); PO2 VBG 26 mmHg; pH VBG 7.41 (7.36-7.41)
[2021-12-19 16:44] LABS: Alanine Aminotransferase < 3 U/L (7-52); Albumin Level 4.4 gm/dl (3.4-5.0); Alkaline Phosphatase 65 U/L (34-104); Aspartate Aminotransferase 11 U/L (13-39); Bilirubin Direct 0.1 mg/dl (0-0.2); Bilirubin,Total 0.4 mg/dl (0.2-1.0); Magnesium 1.9 mg/dl (1.7-2.4); Total Protein 7.3 gm/dl (6.0-8.3)
[2021-12-19 17:03] LABS: Appearance Urine Clear (Clear); Bilirubin Urine Negative (Negative); Blood Urine Negative (Negative); Color Urine Yellow; Glucose Urine UA Negative (Negative); Ketones Urine Negative (Negative); Leukocyte Esterase Urine Negative (Negative); Nitrite Urine Negative (Negative); Protein Urine Negative (Negative); Urobilinogen Urine Negative (Negative)
--- NOTE | 2021-12-19 17:04 | XRay Report ---
SINGLE VIEW CHEST CLINICAL HISTORY: Sepsis. FINDINGS: An AP, portable, upright chest radiograph is compared to study dated 09/19/2020 and correlat ed with chest CT dated 08/11/2020. The heart is enlarged. The pulmonary vasculature is noncongested. C hronic interstitial thickening is similar to previous. Chronic scarlike opacities are unchanged from previous and likely related to chronic lung disease. No superimposed air space consolidation is ident ified. No large pleural effusion or pneumothorax is seen. The skeletal structures are osteopenic. The bony thorax is grossly intact. IMPRESSION: Cardiomegaly and chronic parenchymal changes as above with no acute cardiopulmonary abnor mality identified. ACT 112: Negative or not required by law. Electronically signed by: Vasiliy Leung M.D. 12/19/2021 5:03 PM
[2021-12-19] MEDS ORDERED: LORazepam 2 MG/2 ML SYR IV STA (18:58)
[2021-12-19] MEDS ORDERED: CARBIDOPA/LEVODOPA 25/100MG TAB PO STA (19:22)
--- NOTE | 2021-12-19 20:38 | XRay Report ---
KUB HISTORY: Generalized abdominal pain. COMPARISON: KUB 01/31/2021. FINDINGS: Suboptimal evaluation due to motion artifact. No dilated loops of bowel to suggest an obstr uction. There is moderate well-formed stool seen throughout the colon. Mild interstitial scoliosis of the lumbar spine. No renal calculi. No ureteral calculi. Calcifications in the deep pelvis likely r epresent phleboliths. No pneumoperitoneum or pneumatosis. IMPRESSION: 1. Motion artifact. 2. No definite evidence for a bowel obstruction. 3. Moderate well-formed stool within the colon. ACT 112: Negative or not required by law. Electronically signed by: Hiren Campbell M.D. 12/19/2021 8:36 PM
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
[2021-12-19] MEDS ORDERED: GABAPENTIN 800 MG TAB PO SCH (21:51)
[2021-12-19] MEDS ORDERED: traZODone HCL 50 MG TAB PO SCH (21:51)
[2021-12-19] MEDS ORDERED: ONDANSETRON 4 MG OD TAB PO PRN (21:51)
[2021-12-19] MEDS: busPIRone 5 MG TAB PO SCH (23:04)
[2021-12-19] MEDS: MEMANTINE HCL 5 MG TAB PO SCH (23:04)
[2021-12-19] MEDS: ALPRAZolam 0.5 MG TABLET PO SCH (23:04)
[2021-12-19] MEDS: CARBIDOPA/LEVODOPA 50/200MG EXT REL TAB PO SCH (23:05)
[2021-12-19] MEDS: CARBIDOPA/LEVODOPA 25/100MG TAB PO SCH (23:05)
[2021-12-20] MEDS: ACETAMINOPHEN 500 MG TAB PO SCH ×3 (02:06→13:31)
[2021-12-20 06:13] LABS: Basophils # (auto) 0.02 K/uL (0-0.2); Basophils % (auto) 0.5 %; Eosinophils # (auto) 0.32 K/uL (0-0.50); Eosinophils % (auto) 7.7 %; Hematocrit (blood only) 31.6 % (34.1-44.9); Hemoglobin 10.5 g/dl (12.0-16.0); Immature Granulocytes # (auto) 0.02 K/uL (0.00-0.02); Immature Granulocytes % (auto) 0.5 %; Lymphocytes # (auto) 0.69 K/uL (1.2-3.4); Lymphocytes % (auto) 16.5 %; Monocytes # (auto) 0.55 K/uL (0.24-0.82); Monocytes % (auto) 13.2 %; Neutrophils # (auto) 2.58 K/uL (1.4-6.5); Neutrophils % (auto) 61.6 %; Platelet Count 123 K/uL (130-400); White Blood Count 4.18 K/ul (4.8-10.8)
[2021-12-20 06:44] LABS: BUN Creatinine Ratio 22.5 (10-20); Creatinine Clr Calc Pharmacy 46.9 ml/min; Est GFR (African American) 93.2 ml/min; Est GFR (Non-African American) 80.4 ml/min; Potassium 3.8 mmol/L (3.5-5.1)
[2021-12-20 06:52] LABS: Mean Corpuscular Hemoglobin 33.2 pg (25.0-34.0); Mean Corpuscular Hgb Conc 33.2 g/dL (32.0-36.0); RDW Coefficient of Variation 12.9 % (11.5-14.5); RDW Standard Deviation 47.8 fL (36.4-46.3); Red Blood Count 3.16 M/uL (3.93-5.22)
[2021-12-20] MEDS: busPIRone 5 MG TAB PO SCH ×2 (08:28→13:31)
[2021-12-20] MEDS: CARBIDOPA/LEVODOPA 25/100MG TAB PO SCH ×2 (08:28→11:29)
[2021-12-20] MEDS: CARBIDOPA/LEVODOPA 50/200MG EXT REL TAB PO SCH (08:28)
[2021-12-20] MEDS: MEMANTINE HCL 5 MG TAB PO SCH (08:29)
[2021-12-20] MEDS: ALPRAZolam 0.5 MG TABLET PO SCH ×2 (08:37→13:31)
--- NOTE | 2021-12-20 08:55 | Hospitalist Progress Note ---
Date of Service December 20, 2021 Assessment & Plan (1) Altered mental state: Plan: No specific reversible cause found - suspect just underlying dementia/Parkinson's progression in setting of vitamin B12 deificiency. Concerning chronic benzodiazepine use however also her main complaint is anxiety therefore will continue her usual dose doing. Will continue her regular medication. Will monitor overnight in hospital and have PT/OT assess her ability to return back to assisted living. XR KUB to assess for fecal impaction/SBO (2) Vitamin B 12 deficiency: Plan: Repeat level in AM as may be causing a lot of her symptoms. Getting IM injections as outpatient however may need to be more frequent (3) Parkinsons disease: Plan: Continue her usual Sinemet dosing (4) Dementia: Plan: Continue usual dose of memantine (5) Acid reflux: Plan: On no specific medication for this. Monitor for symptoms. (6) Anxiety: Plan: Continue her usual regular venlafaxine, trazodone, Xanax and BuSpar dosing (7) Raynaud's disease: Plan: On no specific treatment for this (8) Nausea: Plan: Ondansetron PRN (9) Hyperlipidemia: Plan: Continue her usual atorvastatin (10) IBS (irritable bowel syndrome): Plan: Noted history of this - suspect causing her abdominal pain on exam as above. No acute change in abdominal pain. Plan VTE Prophylaxis - SCDs deferred due to falls risk, chemical prophylaxis deferred given lack of acute process Diet - regular Disposition - observation status to med/tele Admission and Anticipated Discharge Date Admission Date: December 19, 2021 Results & Data Results & Data ([facility]) Vital Signs (Past 12 Hours) Vital Signs Temp Pulse Pulse Resp BP Pulse Ox O2 Del Method 12/20/21 08:47 97.5 F L 72 18 130/73 95 Room Air 12/20/21 07:55 58 L 12/19/21 22:15 61 12/19/21 23:00 60 20 PG Care Time/CCT Total # of Minutes Spent Total Time Spent with Patient: Total time spent is greater than 50% in coordination of care (as documented) at patient's floor/unit and/or counseling patient: Coding Diagnoses Altered mental state R41.82 Vitamin B 12 deficiency E53.8 Parkinsons disease G20 Dementia F03.94 Dementia behavioral or psychological symptom: with anxiety Dementia severity: unspecified severity Dementia type: unspecified type Acid reflux K21.9 Anxiety F41.9 Raynaud's disease I73.00 Nausea R11.0 Hyperlipidemia E78.2 Hyperlipidemia type: mixed hyperlipidemia IBS (irritable bowel syndrome) K58.9 (1) Dementia Dementia behavioral or psychological symptom: with anxiety Dementia severity: unspecified severity Dementia type: unspecified type Qualified Code(s): F03.94 - Unspecified dementia, unspecified severity, with anxiety (2) Hyperlipidemia Hyperlipidemia type: mixed hyperlipidemia Qualified Code(s): E78.2 - Mixed hyperlipidemia
[2021-12-20] MEDS ORDERED: POLYETHYLENE (MIRALAX) 17 GM PACK PO SCH (09:00)
[2021-12-20] MEDS ORDERED: VENLAFAXINE HCL XR 75 MG CAPXR PO SCH (09:00)
[2021-12-20] MEDS ORDERED: METOPROLOL SUCC 25MG EXT REL TAB PO SCH (09:00)
[2021-12-20] MEDS ORDERED: VENLAFAXINE HCL XR 37.5 MG CAPXR PO SCH (09:00)
[2021-12-20] MEDS ORDERED: ATORVASTATIN 20 MG TAB PO SCH (09:00)
--- NOTE | 2021-12-20 09:08 | Electrocardiogram Report ---
Test Reason : Blood Pressure : / mmHG Vent. 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
[2021-12-20] MEDS ORDERED: THIAMINE HCL 500 MG in SODIUM CHLORIDE 0.9% 50 ML IV ONE (10:30)
--- NOTE | 2021-12-20 19:04 | Discharge Summary ---
Date of Service December 20, 2021 Admission HPI Per Admitting Provider Aranza Hurst is an 81 year old female who resides in assisted living at [facility] with Parkinson's and dementia who presents to the ER with altered mental state. She reports waking up this morning (unknown time) and being confused for around two hours. She was unaware of where she . A friend is in the room with her but unable to provide a collateral history. The patient unsure whether she is back to her baseline. She is just very concerned about getting her medications and what I am going to give her despite multiple reassurances we went through all of her medications with her, we will call [facility] for conf irmation and prescribe all her usual medications. Principal Diagnosis confusion which cleared parkinsons disease Discharge Exam The patient appeared stable Vital signs as documented. Lungs are clear to auscultation and appear unlabored Cardiac exam, Rhythm is regular.. No murmurs, rubs or gallops. Abdominal exam reveals normal bowel sounds, soft non tender, no masses Extremities are nonedematous and both pedal pulses are normal. Neurologic exam is alert and oriented, no focal loss of strength or sensation Skin is without bruises or rashes Psychologically is without concerns for anxiety or depression. Discharge Data Allergies Allergy/AdvReac Type Severity Reaction Status Date / Time Penicillins Allergy Severe RASH Verified 12/19/21 18:50 gluten Allergy Intermediate GI SYMPTOMS Verified 12/19/21 18:50 lactose Allergy Intermediate GI SYMPTOMS Verified 12/19/21 18:50 Sulfa (Sulfonamide Allergy Intermediate RASH Verified 12/19/21 18:50 Antibiotics) sulfamethoxazole Allergy Intermediate RASH Verified 12/19/21 18:50 doxycycline Allergy Unknown Unknown Verified 12/19/21 18:50 ropinirole Allergy Unknown Unknown Verified 12/19/21 18:50 Consultations 12/19/21 19:01 ED Decision to Admit Stat Ordered Studies 12/19/21 15:52 CT head/brain wo con Stat Hospital Course (1) Altered mental state: No specific reversible cause found - suspect just underlying dementia/Parkinson's progression in setting of vitamin B12 deificiency. Concerning chronic benzodiazepine use however also her main complaint is anxiety therefore will continue her usual dose doing. Will continue her regular medication. Thiamine x 1 and level sent will follow it after discharge and augment if needed urine culture is pending at discharge (2) Vitamin B 12 deficiency: Repeat level in AM as may be causing a lot of her symptoms. Getting IM injections as outpatient level in normal range (3) Parkinsons disease: Continue her usual Sinemet dosing (4) Dementia: Continue usual dose of memantine (5) Anxiety: Continue her usual regular venlafaxine, trazodone, Xanax and BuSpar dosing (6) Raynaud's disease: (7) Nausea: (8) Hyperlipidemia: Continue her usual atorvastatin (9) IBS (irritable bowel syndrome): Noted history of this - suspect causing her abdominal pain on exam as above. No acute change in abdominal pain. pt has moderate stool load, feels no ill symptoms, and will continue usual cathartic issues Plan Diet - regular Total Time Total Time Spent Total Time Spent (In Minutes): It required greater than 30 minutes to prepare this patient for discharge Discharge Plan Discharge Items Patient Disposition: Personal Senior Care Reason For Visit: ALTERED MENTAL STATE Discharge Diagnosis: altered mental state, resolved parkinsons disease Condition on Discharge: Good Activity: Per Instructions section Non-emergency contact: Primary Care Provider Call non-emergency contact if: your symptoms worsen Follow-up/Referrals: Loyd Bustillos MD [Primary Care Provider] - Diet: Regular Diet Texture: Easy to Chew Addtl Attending Provider Instructions: please be in touch with your primary care we will call you in your urine culture shows an infection Pending Studies at Discharge: No Stand-Alone Forms: 908 Devices, Smoking Cessation Skilled Items Patient informed of condition?: Yes DNR: No Discharge Level of Care: Other Communicable Disease: No Discharge Prognosis: Stable Lines: None Urinary Catheter: No Medications and DC Order Prescriptions: Continued atorvastatin 20 mg tablet 20 mg PO QAM Qty: 90 3RF carbidopa-levodopa 50-200 mg tablet extended release 1 tab PO BID Qty: 60 5RF ondansetron 4 mg tablet,disintegrating 4 mg PO Q6H PRN (Reason: nausea and vomiting) Qty: 30 0RF carbidopa-levodopa 25-100 mg tablet 2 tab PO QID 30 Days Qty: 240 5RF Rx Instructions: TAKES AT 0800, 1200, 1600 & 2000 metoprolol succinate 25 mg tablet extended release 24 hr 25 mg PO QAM Qty: 90 3RF venlafaxine 37.5 mg capsule,extended release 24hr 37.5 mg PO QAM Qty: 90 1RF Rx Instructions: Take with 150mg to make 187.5mg polyethylene glycol 3350 [Miralax] 17 gram powder in packet 17 g PO DAILY Qty: 30 3RF acetaminophen 650 mg tablet extended release 1,300 mg PO TID Qty: 180 2RF cyanocobalamin (vitamin B-12) 1,000 mcg/mL solution 1,000 mcg IM .COMPLEX Qty: 10 2RF Rx Instructions: 1,000 mcg intramuscularly WEEKLY for 4 WEEKS then MONTHLY thereafter.; alprazolam 0.5 mg tablet 0.5 mg PO TID PRN (Reason: anxiety) 30 Days Qty: 90 0RF buspirone 10 mg tablet 5 mg PO TID Qty: 90 2RF trazodone 50 mg tablet 50 mg PO HS Rx Instructions: TAKE 1 TABLET AT BEDTIME venlafaxine 75 mg capsule,extended release 24hr 75 mg PO QAM Rx Instructions: Take with 37.5mg to make 187.5mg gabapentin 800 mg tablet 800 mg PO HS Rx Instructions: TAKE 1 TABLET EVERY DAY memantine 10 mg tablet 5 mg PO BID Discontinued clotrimazole 10 mg juwan 10 mg mucous membrane 5XD Qty: 25 0RF Discharge Orders: Discharge Order (Routine); Ordered 12/20/21 Ordered By: Ho Hall Admission Data Admit Date/Time: 12/19/21 19:03 Attending Provider: Ho Hall Admit Provider: Jamison Gallegos Primary Care Provider: Loyd Bustillos Other Providers: Jamison Gallegos Other Interventions: Discharge Summary Assessment (RN) Last Done: 12/20/21 14:35 Coding Level of Care Code D/C DAY MANAGEMENT >30 MINS Diagnoses Altered mental state R41.82 Vitamin B 12 deficiency E53.8 Parkinsons disease G20 Dementia F03.94 Dementia behavioral or psychological symptom: with anxiety Dementia severity: unspecified severity Dementia type: unspecified type Anxiety F41.9 Raynaud's disease I73.00 Nausea R11.0 Hyperlipidemia E78.2 Hyperlipidemia type: mixed hyperlipidemia IBS (irritable bowel syndrome) K58.9
== END 2021-12-20 15:00 | disposition home or self-care (01) ==
LOC: ED 15:43 → 2N 15:43 → SUATTDRO 19:03 → 2N 20:38
DX: Z88.0 Allergy status to penicillin; E78.5 Hyperlipidemia, unspecified; Z88.1 Allergy status to other antibiotic agents; Z88.2 Allergy status to sulfonamides; D51.9 Vitamin B12 deficiency anemia, unspecified; F02.80 Dementia in other diseases classified elsewhere, unspecified severity, without behavioral disturbance, psychotic disturbance, mood disturbance, and anxiety; G20 Parkinson's disease; K58.9 Irritable bowel syndrome, unspecified; Z79.899 Other long term (current) drug therapy; R41.0 Disorientation, unspecified

== ENCOUNTER 2022-10-06 19:10 | Observation (INO) ==
[2022-10-06 19:49] LABS: Basophils # (auto) 0.02 K/uL (0-0.2); Basophils % (auto) 0.4 %; Eosinophils # (auto) 0.16 K/uL (0-0.50); Eosinophils % (auto) 3.3 %; Hematocrit (blood only) 37.6 % (37.0-47.0); Hemoglobin 12.2 g/dl (12.0-16.0); Immature Granulocytes # (auto) 0.02 K/uL (0.01-0.20); Immature Granulocytes % (auto) 0.4 %; Lymphocytes # (auto) 0.71 K/uL (1.2-3.4); Lymphocytes % (auto) 14.9 %; Mean Corpuscular Hemoglobin 33.1 pg (25.0-34.0); Mean Corpuscular Hgb Conc 32.4 g/dL (32.0-36.0); Mean Corpuscular Volume 101.9 fL (80.0-100.0); Mean Platelet Volume 12.3 fL (9.4-12.4); Monocytes % (auto) 8.4 %; Neutrophils # (auto) 3.47 K/uL (1.40-6.50); Neutrophils % (auto) 72.6 %; Platelet Count 129 K/uL (130-400); RDW Coefficient of Variation 13.3 % (11.5-14.5); RDW Standard Deviation 49.7 fL (36.4-46.3); Red Blood Count 3.69 M/uL (4.20-5.40); White Blood Count 4.78 K/ul (4.8-10.8)
--- NOTE | 2022-10-06 19:57 | XRay Report ---
SINGLE VIEW CHEST CLINICAL HISTORY: Apical chest pain. FINDINGS: An AP, portable, upright chest radiograph is compared to study dated 08/18/2022 and correlat ed with chest CT dated 05/17/2022. The cardiomediastinal silhouette is top normal for projection. Clinical Allergist ciara interstitial thickening is similar to previous. Subpleural reticulation is seen throughout both l ungs with foci of parenchymal scarring. Atelectasis is noted at the lung bases. No superimposed airsp ezekiel consolidation or large pleural effusion is identified. No pneumothorax is seen. The skeletal stru ctures are osteopenic. The bony thorax is grossly intact. IMPRESSION: Chronic parenchymal changes as above with no acute cardiopulmonary abnormality identified . ACT 112: Negative or not required by law. Electronically signed by: Vasiliy Leung M.D. 10/06/2022 7:55 PM
[2022-10-06] MEDS ORDERED: LORazepam 0.5 MG TAB PO STA (20:10)
[2022-10-06 20:12] LABS: Anion Gap 6 (3-11); BUN Creatinine Ratio 20.8 (10-20); Blood Urea Nitrogen 22 mg/dl (6-23); Calcium 9.6 mg/dl (8.6-10.3); Carbon Dioxide 27 mmol/L (21-32); Chloride 105 mmol/L (98-107); Creatinine Clr Calc Pharmacy 33.1 ml/min; Est GFR (African American) 57.4 ml/min; Est GFR (Non-African American) 49.6 ml/min; Glucose 113 mg/dl (70-99(Fasting)); Potassium 4.3 mmol/L (3.5-5.1); Sodium 138 mmol/L (136-145)
[2022-10-06 20:22] LABS: Alanine Aminotransferase < 3 U/L (7-52); Albumin Globulin Ratio 1.6 (0.9-2); Albumin Level 4.4 gm/dl (3.4-5.0); Alkaline Phosphatase 59 U/L (34-104); Aspartate Aminotransferase 14 U/L (13-39); Bilirubin,Total 0.3 mg/dl (0.2-1.0); Globulin 2.8 gm/dl (2.5-4.0); Lipase 34 U/L (11-82); Total Protein 7.2 gm/dl (6.0-8.3)
[2022-10-06] MEDS ORDERED: traZODone HCL 50 MG TAB PO ONE (21:58)
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
[2022-10-07] MEDS ORDERED: CARBIDOPA/LEVODOPA 50/200MG EXT REL TAB PO SCH ×2 (01:43→09:00)
[2022-10-07] MEDS ORDERED: GABAPENTIN 800 MG TAB PO SCH (01:43)
[2022-10-07] MEDS ORDERED: ACETAMINOPHEN 325 MG TAB PO PRN (01:43)
[2022-10-07] MEDS ORDERED: ONDANSETRON 4 MG OD TAB PO PRN (01:43)
[2022-10-07] MEDS: MEMANTINE HCL 10 MG TAB PO SCH ×2 (02:25→08:44)
[2022-10-07] MEDS: busPIRone 5 MG TAB PO SCH ×3 (02:26→13:05)
[2022-10-07] MEDS: CARBIDOPA/LEVODOPA 25/100MG TAB PO SCH ×3 (02:27→13:05)
--- NOTE | 2022-10-07 05:52 | Billing Data ---
Date of Service October 07, 2022 Coding Level of Care Code 68918 INT INP/OBS CARE
[2022-10-07 07:08] LABS: Basophils # (auto) 0.02 K/uL (0-0.2); Basophils % (auto) 0.5 %; Eosinophils # (auto) 0.17 K/uL (0-0.50); Eosinophils % (auto) 4.1 %; Hematocrit (blood only) 35.6 % (37.0-47.0); Hemoglobin 11.6 g/dl (12.0-16.0); Immature Granulocytes # (auto) 0.02 K/uL (0.01-0.20); Immature Granulocytes % (auto) 0.5 %; Lymphocytes # (auto) 0.74 K/uL (1.2-3.4); Lymphocytes % (auto) 17.8 %; Mean Corpuscular Hemoglobin 32.8 pg (25.0-34.0); Mean Corpuscular Hgb Conc 32.6 g/dL (32.0-36.0); Mean Corpuscular Volume 100.6 fL (80.0-100.0); Mean Platelet Volume 11.9 fL (9.4-12.4); Monocytes % (auto) 9.6 %; Neutrophils % (auto) 67.5 %; Platelet Count 122 K/uL (130-400); RDW Coefficient of Variation 13.2 % (11.5-14.5); Red Blood Count 3.54 M/uL (4.20-5.40); White Blood Count 4.15 K/ul (4.8-10.8)
--- NOTE | 2022-10-07 07:13 | Electrocardiogram Report ---
Test Reason : Blood Pressure : / mmHG Vent. Rate : 073 BPM Atrial Rate : 073 BPM P-R Int : 126 ms QRS Dur : 076 ms QT Int : 366 ms P-R-T Axes : 094 038 -05 degrees QTc Int : 403 ms Sinus rhythm with Premature atrial complexes Septal infarct (cited on or before 19-SEP-2020) Abnormal ECG When compared with ECG of 18-AUG-2022 20:00, Premature atrial complexes are now Present Confirmed by Christiano Salvador ([id number]) on 10/07/2022 7:13:00 AM Referred By: REFERRED SELF Confirmed By:Emre Salvador
[2022-10-07 07:24] LABS: BUN Creatinine Ratio 19.8 (10-20); Calcium 9.3 mg/dl (8.6-10.3); Chol HDL Ratio 2.9 (0-5); Est GFR (African American) 73.9 ml/min; Est GFR (Non-African American) 63.8 ml/min; Magnesium 1.8 mg/dl (1.7-2.4); Potassium 4.2 mmol/L (3.5-5.1)
[2022-10-07] MEDS ORDERED: PANTOprazole 40 MG TAB PO SCH (09:00)
[2022-10-07] MEDS ORDERED: ATORVASTATIN 20 MG TAB PO SCH (09:00)
[2022-10-07] MEDS ORDERED: METOPROLOL SUCC 25MG EXT REL TAB PO SCH (09:00)
[2022-10-07] MEDS ORDERED: VENLAFAXINE HCL XR 75 MG CAPXR PO SCH (09:00)
[2022-10-07] MEDS ORDERED: POLYETHYLENE (MIRALAX) 17 GM PACK PO SCH (09:00)
[2022-10-07] MEDS ORDERED: VENLAFAXINE HCL XR 37.5 MG CAPXR PO SCH (09:00)
--- NOTE | 2022-10-07 10:30 | XCELERA ---
[id number]
--- NOTE | 2022-10-07 15:14 | Discharge Summary ---
"Date of Service October 07, 2022 Admission HPI Per Admitting Provider 81 yo female who resides in assisted living at [place] with PMHx of parkinsons, dementia, anxiety, depression, insomnia, fibromyalgia, HLD, HTN, paroxysmal atrial tachycardia, GERD, and constipation presents with chest pain. During the middle of the day, she suddenly felt some GI upset and chest discomfort. The chest discomfort resolved after 2 hours. The GI upset is ongoing but she is unsure if it's now just due to being hungry. Denies headache, diaphoresis, fatigue, sob, N/V/D, dysuria, extremity weakness/numbness. She is a non smoker. Principal Diagnosis Chest pain Discharge Exam Constitutional Anxious appearing Eyes + anicteric sclerae ENMT Ears: no external ear abnormality Nose: no external nose abnormality Moist mucous membranes Respiratory normal respiratory effort, lungs clear to auscultation Cardiovascular Rate/Rhythm: regular rate and regular rhythm Gastrointestinal (Abdomen) Abdomen soft, nontender, nondistended Skin no rashes, warm and dry Discharge Data Allergies Allergy/AdvReac Type Severity Reaction Status Date / Time Penicillins Allergy Severe RASH Verified 08/18/22 19:58 gluten Allergy Intermediate GI SYMPTOMS Verified 08/18/22 19:58 lactose Allergy Intermediate GI SYMPTOMS Verified 08/18/22 19:58 Sulfa (Sulfonamide Allergy Intermediate RASH Verified 08/18/22 19:58 Antibiotics) sulfamethoxazole Allergy Intermediate RASH Verified 08/18/22 19:58 doxycycline Allergy Unknown ON Verified 08/18/22 19:58 [facility] ropinirole Allergy Unknown ON Verified 08/18/22 19:58 [facility] Consultations 10/06/22 20:56 ED Decision to Admit Stat Ordered Studies Chest X-Ray 10/06/22 19:11 SINGLE VIEW CHEST CLINICAL HISTORY: Apical chest pain. FINDINGS: An AP, portable, upright chest radiograph is compared to study dated 08/18/2022 and correlated with chest CT dated 05/17/2022. The cardiomediastinal silhouette is top normal for projection. Chronic interstitial thickening is similar to previous. Subpleural reticulation is seen throughout both lungs with foci of parenchymal scarring. Atelectasis is noted at the lung bases. No superimposed airspace consolidation or large pleural effusion is identified. No pneumothorax is seen. The skeletal structures are osteopenic. The bony thorax is grossly intact. IMPRESSION: Chronic parenchymal changes as above with no acute cardiopulmonary abnormality identified. ACT 112: Negative or not required by law. Electronically signed by: Vasiliy Leung M.D. 10/06/2022 7:55 PM Hospital Course (1) Chest pain: (2) Altered mental state: (3) Parkinsonism: (4) Dementia: Plan Aranza Hurst is a 81 year-old female who resides in assisted living at [place] with PMHx of parkinsons, dementia, anxiety, depression, insomnia, fibromyalgia, HLD, HTN, paroxysmal atrial tachycardia, GERD, and constipation presents with chest pain. Chest Pain -Patient presented with 2 hours of chest discomfort earlier in the day, denied any radiation of symptoms to arm or jaw. Chest pressure/pain now resolved. Troponin was repeated twice and was within normal limits. EKG without acute ischemic changes. Patient was found to have a low likelihood of ACS, however she was admitted for observation. A chest x-ray was completed that was unremarkable. Patient was monitored on telemetry. Echocardiogram completed without acute findings. Pain resolved and patient feels that she experienced the pain while having a panic attack. -After discussion with the patient's daughter, she will have episodes of anxiety that lead to chest pain and she was not given her alprazolam when this began. Would recommend utilizing methods of breathing techniques, distraction, and her prescribed medications including alprazolam. -If she has chest pain in other settings, it may be worth considering a stress test as an outpatient Paroxysmal atrial tachycardia, HTN -Continue metoprolol Parkinson's -Continue Sinemet Dementia -Continue memantine Depression | Anxiety | Fibromyalgia | Insomnia -Continue home Venlafaxine, Trazodone, BuSpar Neuropathy -Continue gabapentin GERD -Continue Protonix Constipation -Continue Miralax HLD -Continue statin Total Time Total Time Spent Total Time Spent (In Minutes): . <30 Discharge Plan Discharge Items Patient Disposition: Transfer [facility] Fac Reason For Visit: CHEST PAIN Discharge Diagnosis: Chest Pain Activity: Per Instructions section Non-emergency contact: Primary Care Provider Call non-emergency contact if: you have any medication questions and your symptoms worsen Follow-up/Referrals: Micky Nunez CRNP [Primary Care Provider] - 10/15/22 12:20 pm (Please schedule hospital discharge follow up appointment within 1 week of discharge) Diet: Heart Healthy Addtl Attending Provider Instructions: Aranza Hurst is a 81 year-old female who resides in assisted living at [place] with PMHx of parkinsons, dementia, anxiety, depression, insomnia, fibromyalgia, HLD, HTN, paroxysmal atrial tachycardia, GERD, and constipation presents with chest pain. Chest Pain -Patient presented with 2 hours of chest discomfort earlier in the day, denied any radiation of symptoms to arm or jaw. Chest pressure/pain now resolved. Troponin was repeated twice and was within normal limits. EKG without acute ischemic changes. Patient was found to have a low likelihood of ACS, however she was admitted for observation. A chest x-ray was completed that was unremarkable. Patient was monitored on telemetry. Echocardiogram completed without acute findings. Pain resolved and patient feels that she experienced the pain while having a panic attack. -After discussion with the patient's daughter, she will have episodes of anxiety that lead to chest pain and she was not given her alprazolam when this began. Would recommend utilizing methods of breathing techniques, distraction, and her prescribed medications including alprazolam. -If she has chest pain in other settings, it may be worth considering a stress test as an outpatient Paroxysmal atrial tachycardia, HTN -Continue metoprolol Parkinson's -Continue Sinemet Dementia -Continue memantine Depression | Anxiety | Fibromyalgia | Insomnia -Continue home Venlafaxine, Trazodone, BuSpar Neuropathy -Continue gabapentin GERD -Continue Protonix Constipation -Continue Miralax HLD -Continue statin Pending Studies at Discharge: No Stand-Alone Forms: My [facility] Skilled Items Patient informed of condition?: Yes DNR: Yes Discharge Level of Care: Skilled Communicable Disease: No Discharge Prognosis: Stable Lines: None Urinary Catheter: No Medications and DC Order Prescriptions: Continued atorvastatin 20 mg tablet 20 mg PO QAM Qty: 90 3RF metoprolol succinate 25 mg tablet extended release 24 hr 25 mg PO QAM Qty: 90 3RF venlafaxine 37.5 mg capsule,extended release 24hr 37.5 mg PO QAM Qty: 90 1RF Rx Instructions: TOTAL DOSE 112.5 MG--TAKES WITH 75 MG CAP. polyethylene glycol 3350 [Miralax] 17 gram powder in packet 17 g PO DAILY Qty: 30 3RF alprazolam 0.5 mg tablet 0.5 mg PO TID PRN (Reason: anxiety) 30 Days Qty: 90 1RF buspirone 10 mg tablet 5 mg PO TID Qty: 90 2RF carbidopa-levodopa 50-200 mg tablet extended release 1 tab PO BID Rx Instructions: TAKES 0900 & 1700 Ensure Liquid 1 ea PO DAILY acetaminophen [Mapap Arthritis Pain] 650 mg tablet extended release 1,300 mg PO TID carbidopa-levodopa 25-100 mg tablet 2 tab PO QID Rx Instructions: 0900, 1300, 1700, & 2000 memantine 10 mg tablet 10 mg PO BID 30 Days Qty: 60 5RF trazodone 50 mg tablet 50 mg PO HS Rx Instructions: TAKE 1 TABLET AT BEDTIME clotrimazole 10 mg [place] 10 mg PO 5XD PRN (Reason: THRUSH SYMPTOMS) acetaminophen [Tylenol] 325 mg Tablet 650 mg PO Q4H MDD 3 GRAMS/24 HOURS PRN (Reason: PAIN/FEVER) venlafaxine 75 mg capsule,extended release 24hr 75 mg PO QAM Rx Instructions: TOTAL DOSE 112.5 MG--TAKES WITH 37.5 MG CAP. gabapentin 800 mg tablet 800 mg PO HS Rx Instructions: TAKE 1 TABLET EVERY DAY cyanocobalamin (vitamin B-12) 1,000 mcg/mL solution 1,000 mcg IM MONTHLY Rx Instructions: of every month cyanocobalamin (vitamin B-12) 1,000 mcg/mL solution 1,000 mcg IM .TWICE MONTHLY ondansetron 4 mg tablet,disintegrating 4 mg PO Q8H PRN (Reason: Nausea) pantoprazole 40 mg tablet,delayed release (DR/EC) 40 mg PO QAM mupirocin calcium 2 % cream 1 applic TOPICAL DAILY Rx Instructions: apply daily to ulcer on 4th toe on right foot. offloading corn pad wit hole on ulcer clotrimazole 10 mg [place] 10 mg PO 5XD PRN (Reason: thrush symptoms) Discharge Orders: Discharge Order (Routine); Ordered 10/07/22 Ordered By: Nancy Catalan Admission Data Admit Date/Time: 10/06/22 22:15 Attending Provider: Lance Suresh Admit Provider: Sigifredo Garcia Primary Care Provider: Micky Nunez Other Providers: Maximus Herrera Other Interventions: Discharge Summary Assessment (RN) Last Done: 10/07/22 15:16 Supervising Physician Co-Signing Physician Notes I personally examined the patient and verified all buck points of history and exam, discussed case, and agree with decision making with Dr Catalan feeling ok really wants to get out of the hospital vitals noted nad heent nc at mmm breathing unlabored no accessory muscles good effort skin no rashes no pallor or icterus neuro no focal deficits chest pain - likely anxiety, cardiac w/u very reassurring, safe for discharge. otherwise as above Resident Activity Tracking Resident Involvement: Resident Care Provided Care Provided: Adult Hospital Medicine"
--- NOTE | 2022-10-07 18:26 | Billing Data ---
Date of Service October 07, 2022 Coding Level of Care Code 50528 IN/OBS DISCH 30 MIN/LESS
[2022-10-07] MEDS ORDERED: traZODone HCL 50 MG TAB PO SCH (21:00)
[2022-10-08 08:27] LABS: Estimated Average Glucose 108 mg/dl; Hemoglobin A1C 5.4 % (4.5-5.6)
== END 2022-10-07 16:03 ==
LOC: 2N 19:10 → ED 19:10 → SUATTDRO 22:15 → 2N 10-07 00:30

== ENCOUNTER 2022-10-10 21:20 | Inpatient (IN) ==
[2022-10-10 22:54] LABS: Basophils # (auto) 0.01 K/uL (0-0.2); Basophils % (auto) 0.2 %; Eosinophils # (auto) 0.14 K/uL (0-0.50); Eosinophils % (auto) 3.1 %; Hematocrit (blood only) 33.9 % (37.0-47.0); Hemoglobin 11.1 g/dl (12.0-16.0); Immature Granulocytes # (auto) 0.01 K/uL (0.01-0.20); Immature Granulocytes % (auto) 0.2 %; Lymphocytes % (auto) 15.3 %; Mean Corpuscular Hemoglobin 33.2 pg (25.0-34.0); Mean Corpuscular Hgb Conc 32.7 g/dL (32.0-36.0); Mean Corpuscular Volume 101.5 fL (80.0-100.0); Mean Platelet Volume 12.5 fL (9.4-12.4); Monocytes # (auto) 0.48 K/uL (0.11-0.59); Monocytes % (auto) 10.5 %; Neutrophils # (auto) 3.25 K/uL (1.40-6.50); Neutrophils % (auto) 70.7 %; Platelet Count 130 K/uL (130-400); RDW Coefficient of Variation 13.2 % (11.5-14.5); RDW Standard Deviation 49.4 fL (36.4-46.3); Red Blood Count 3.34 M/uL (4.20-5.40); White Blood Count 4.59 K/ul (4.8-10.8)
[2022-10-10 23:07] LABS: Anion Gap 8 (3-11); BUN Creatinine Ratio 21.6 (10-20); Blood Urea Nitrogen 21 mg/dl (6-23); Calcium 9.4 mg/dl (8.6-10.3); Carbon Dioxide 23 mmol/L (21-32); Chloride 106 mmol/L (98-107); Creatinine Clr Calc Pharmacy 34.1 ml/min; Est GFR (African American) 63.9 ml/min; Est GFR (Non-African American) 55.2 ml/min; Glucose 85 mg/dl (70-99(Fasting)); Potassium 4.4 mmol/L (3.5-5.1); Sodium 137 mmol/L (136-145)
[2022-10-10 23:09] LABS: Alanine Aminotransferase < 3 U/L (7-52); Albumin Globulin Ratio 1.4 (0.9-2); Alkaline Phosphatase 52 U/L (34-104); Aspartate Aminotransferase 14 U/L (13-39); Bilirubin,Total 0.5 mg/dl (0.2-1.0); Globulin 2.8 gm/dl (2.5-4.0); Total Protein 6.8 gm/dl (6.0-8.3)
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
--- NOTE | 2022-10-11 02:12 | CT Scan Report ---
Exam(s): CT RIGHT HIP Without Contrast AsEXAM: CT Right Lower Extremity Without Intravenous Contrast, Hip CLINICAL HISTORY: Reason for exam: trauma. TECHNIQUE: Axial computed tomography images of the right hip without intravenous contrast. CTDI is 15.57 mGy and DLP is 265.41 mGy-cm. Automated exposure control was utilized for the study. A dose lowering technique was utilized adhering to the principles of ALARA. COMPARISON: CT abdomen and pelvis dated 08/18/2022 FINDINGS: Bones/joints: Unremarkable. No acute fracture. No dislocation. Soft tissues: Unremarkable. IMPRESSION: No evidence of acute fracture or dislocation. Electronically signed by: Regina Stephens M.D. 10/11/22 02:11 AM
[2022-10-11] MEDS ORDERED: ACETAMINOPHEN 1,000 MG/100 ML VIAL IV STA (02:13)
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
[2022-10-11] MEDS ORDERED: DOCUSATE SODIUM 100 MG CAP PO PRN (05:13)
--- NOTE | 2022-10-11 07:06 | XRay Report ---
XR chest 1V portable CLINICAL HISTORY: trauma TECHNIQUE: Single frontal radiograph of the chest was obtained. Comparison: Comparison is made to chest radiograph dated 07/21/2022 FINDINGS: No lines and tubes are seen. The cardiomediastinal silhouette is normal. Reticular interstitial opaci ties are seen. No evidence of pleural effusion or pneumothorax. IMPRESSION: No acute chest disease. ACT 112: Negative or not required by law. Electronically signed by: Wilberto Herrera M.D. 10/11/2022 7:04 AM
--- NOTE | 2022-10-11 07:10 | XRay Report ---
XR hip 1V RT w pelvis CLINICAL HISTORY: Injury TECHNIQUE: 2 views of the right hip and single frontal view of the pelvis were obtained. Comparison: Comparison is made to hip radiograph 11/24/2018 FINDINGS: There is no evidence of an acute fracture. Degenerative changes are seen in the hip joint. No soft ti ssue abnormality is seen. IMPRESSION: Degenerative changes without evidence of acute abnormality. ACT 112: Negative or not required by law. Electronically signed by: Wilberto Herrera M.D. 10/11/2022 7:08 AM
--- NOTE | 2022-10-11 07:38 | XRay Report ---
XR femur RT 2V routine CLINICAL HISTORY: Injury TECHNIQUE: 2 radiographic views of the right femur were obtained. Comparison: None available at the time of this dictation. FINDINGS: There is no evidence of an acute fracture. The visualized portion of the hip and knee joints are unre markable. The soft tissues are unremarkable. IMPRESSION: No evidence of acute bony injury. ACT 112: Negative or not required by law. Electronically signed by: Wilberto Herrera M.D. 10/11/2022 7:37 AM
--- NOTE | 2022-10-11 07:41 | XRay Report ---
XR shoulder RT min 2V routine CLINICAL HISTORY: trauma TECHNIQUE: 3 views of the right shoulder were obtained. Comparison: None available at the time of this dictation. FINDINGS: There is no evidence of an acute fracture. Degenerative changes are seen in the glenohumeral joint. T he overlying soft tissues are unremarkable. The visualized portions of the lungs are clear. IMPRESSION: No evidence of acute osseous injury. ACT 112: Negative or not required by law. Electronically signed by: Wilberto Herrera M.D. 10/11/2022 7:40 AM
[2022-10-11] MEDS: CARBIDOPA/LEVODOPA 50/200MG EXT REL TAB PO SCH ×2 (07:56→16:32)
[2022-10-11] MEDS: METOPROLOL SUCC 25MG EXT REL TAB PO SCH (07:56)
[2022-10-11] MEDS: PANTOprazole 40 MG TAB PO SCH (07:56)
[2022-10-11] MEDS: CARBIDOPA/LEVODOPA 25/100MG TAB PO SCH ×4 (07:56→19:20)
[2022-10-11] MEDS: ACETAMINOPHEN 500 MG TAB PO SCH ×3 (07:57→20:24)
[2022-10-11] MEDS: VENLAFAXINE HCL XR 75 MG CAPXR PO SCH (07:57)
[2022-10-11] MEDS: MEMANTINE HCL 10 MG TAB PO SCH ×2 (07:57→20:24)
[2022-10-11] MEDS: VENLAFAXINE HCL XR 37.5 MG CAPXR PO SCH (07:57)
[2022-10-11] MEDS: busPIRone 5 MG TAB PO SCH ×3 (07:58→20:23)
[2022-10-11] MEDS: LIDOCAINE 5% 1 PATCH TD SCH (07:58)
[2022-10-11] MEDS: ATORVASTATIN 20 MG TAB PO SCH (07:58)
[2022-10-11] MEDS: POLYETHYLENE (MIRALAX) 17 GM PACK PO SCH (07:59)
[2022-10-11] MEDS: ALPRAZolam 0.5 MG TABLET PO PRN ×3 (08:04→22:52)
[2022-10-11] MEDS: ONDANSETRON INJ 2 MG/ML 2 ML VIAL IV PRN ×2 (08:18→16:40)
--- NOTE | 2022-10-11 11:09 | Electrocardiogram Report ---
Test Reason : Blood Pressure : / mmHG Vent. Rate : 064 BPM Atrial Rate : 064 BPM P-R Int : 138 ms QRS Dur : 086 ms QT Int : 408 ms P-R-T Axes : 062 035 -14 degrees QTc Int : 420 ms Normal sinus rhythm Left ventricular hypertrophy with repolarization abnormality Abnormal ECG When compared with ECG of 06-OCT-2022 19:16, Premature atrial complexes are no longer Present Confirmed by Christiano Salvador ([id number]) on 10/11/2022 11:09:15 AM Referred By: REFERRED SELF Confirmed By:Emre Salvador
[2022-10-11 16:09] LABS: Hemoglobin 12.2 g/dl (12.0-16.0); Mean Corpuscular Hemoglobin 33.1 pg (25.0-34.0); Mean Corpuscular Volume 100.3 fL (80.0-100.0); Platelet Count 140 K/uL (130-400); RDW Coefficient of Variation 13.2 % (11.5-14.5); RDW Standard Deviation 48.2 fL (36.4-46.3); Red Blood Count 3.69 M/uL (4.20-5.40); White Blood Count 5.97 K/ul (4.8-10.8)
[2022-10-11 16:25] LABS: Calcium 9.4 mg/dl (8.6-10.3); Creatinine Clr Calc Pharmacy 33.5 ml/min; Est GFR (African American) 61.6 ml/min; Est GFR (Non-African American) 53.2 ml/min; Potassium 4.1 mmol/L (3.5-5.1)
[2022-10-11] MEDS: traZODone HCL 50 MG TAB PO SCH (20:24)
[2022-10-11] MEDS: GABAPENTIN 800 MG TAB PO SCH (20:24)
[2022-10-11] MEDS: KETOROLAC TROMETHAMINE 15 MG/ML VIAL IV PRN (22:00)
[2022-10-12 08:05] LABS: Basophils # (auto) 0.01 K/uL (0-0.2); Basophils % (auto) 0.3 %; Eosinophils # (auto) 0.25 K/uL (0-0.50); Eosinophils % (auto) 6.5 %; Hematocrit (blood only) 36.9 % (37.0-47.0); Hemoglobin 12.1 g/dl (12.0-16.0); Immature Granulocytes # (auto) 0.01 K/uL (0.01-0.20); Immature Granulocytes % (auto) 0.3 %; Lymphocytes # (auto) 0.78 K/uL (1.2-3.4); Lymphocytes % (auto) 20.3 %; Mean Corpuscular Hemoglobin 32.9 pg (25.0-34.0); Mean Corpuscular Hgb Conc 32.8 g/dL (32.0-36.0); Mean Corpuscular Volume 100.3 fL (80.0-100.0); Mean Platelet Volume 12.1 fL (9.4-12.4); Monocytes # (auto) 0.49 K/uL (0.11-0.59); Monocytes % (auto) 12.7 %; Neutrophils # (auto) 2.31 K/uL (1.40-6.50); Neutrophils % (auto) 59.9 %; Platelet Count 133 K/uL (130-400); RDW Coefficient of Variation 13.2 % (11.5-14.5); RDW Standard Deviation 48.4 fL (36.4-46.3); Red Blood Count 3.68 M/uL (4.20-5.40); White Blood Count 3.85 K/ul (4.8-10.8)
[2022-10-12 08:14] LABS: Calcium 9.5 mg/dl (8.6-10.3); Potassium 4.4 mmol/L (3.5-5.1)
[2022-10-12 08:20] LABS: BUN Creatinine Ratio 24.7 (10-20); Creatinine Clr Calc Pharmacy 39.4 ml/min; Est GFR (Non-African American) 64.7 ml/min
[2022-10-12] MEDS: CARBIDOPA/LEVODOPA 50/200MG EXT REL TAB PO SCH ×2 (09:10→16:10)
[2022-10-12] MEDS: busPIRone 5 MG TAB PO SCH ×3 (09:10→20:16)
[2022-10-12] MEDS: MEMANTINE HCL 10 MG TAB PO SCH ×2 (09:10→20:16)
[2022-10-12] MEDS: CARBIDOPA/LEVODOPA 25/100MG TAB PO SCH ×4 (09:11→20:16)
[2022-10-12] MEDS: ATORVASTATIN 20 MG TAB PO SCH (09:11)
[2022-10-12] MEDS: VENLAFAXINE HCL XR 37.5 MG CAPXR PO SCH (09:11)
[2022-10-12] MEDS: PANTOprazole 40 MG TAB PO SCH (09:11)
[2022-10-12] MEDS: ACETAMINOPHEN 500 MG TAB PO SCH ×3 (09:11→20:16)
[2022-10-12] MEDS: LIDOCAINE 5% 1 PATCH TD SCH (09:12)
[2022-10-12] MEDS: METOPROLOL SUCC 25MG EXT REL TAB PO SCH (09:12)
[2022-10-12] MEDS: POLYETHYLENE (MIRALAX) 17 GM PACK PO SCH (09:12)
[2022-10-12] MEDS: VENLAFAXINE HCL XR 75 MG CAPXR PO SCH (09:12)
[2022-10-12] MEDS: KETOROLAC TROMETHAMINE 15 MG/ML VIAL IV PRN (12:27)
[2022-10-12] MEDS: ALPRAZolam 0.5 MG TABLET PO PRN ×2 (13:43→20:16)
[2022-10-12] MEDS ORDERED: GLYCERIN ADULT 12 SUPP/BOX SUPP PR PRN (14:17)
[2022-10-12] MEDS: GABAPENTIN 800 MG TAB PO SCH (20:16)
[2022-10-12] MEDS: traZODone HCL 50 MG TAB PO SCH (20:16)
--- NOTE | 2022-10-12 21:19 | Hospitalist Progress Note ---
Date of Service October 12, 2022 Assessment & Plan (1) Right leg injury: Plan: 81yo female presenting from [facility] after an unwitnessed ground level fall. Patient with severe ongoing right hip and thigh pain. Unable to bear weight and ambulate in the ER. -PT/OT evaluation -Tylenol as needed -Patient may need acute rehab prior to returning home to [facility] Awaiting placement. (2) Anxiety: Plan: Chronic. Stable -Continue Buspirone 5mg p TID -Alprazolam 0.5mg po TID (3) Parkinsonism: Plan: Chronic. Stable -Continue Carbidopa/Levodopa -Continue Neurontin (4) Depression: Plan: Chronic. Stable -Continue Venlafaxine (5) Acid reflux: Plan: Chronic. Stable -Continue Protonix (6) Hyperlipidemia: Plan: Chronic. Stable -Atorvastatin 20mg po daily Admission and Anticipated Discharge Date Admission Date: October 11, 2022 Subjective Patient reports no new symptoms. Main concern is that she feels constipated, requested a suppository. Review of Systems Review of Systems: All systems reviewed & are unremarkable except as noted in HPI & below Physical Exam Physical Exam: General: patient resting comfortably, NAD, non-toxic in appearance Skin: warm, dry, intact, no rashes or lesions HEENT: NC/AT, PERRL, EOMI, anicteric sclera, conjunctiva without injection, external ear normal to inspection and nontender, nares patent, moist mucus membranes, dentition intact, no oropharyngeal lesions, neck supple, trachea midline, no LAD, no thyromegaly, no JVD Heart: +S1/S2, regular, no m/r/g Lungs: equal air entry bilaterally, no rales/rhonchi/wheezes Abd: +BS, soft, NT/ND, no masses/organomegaly/ascites Ext: warm, 2+ pulses in UE/LE bilaterally, no clubbing/cyanosis or edema Neuro: nonfocal, speech intact, no facial droop, moving all extremities on command with equal strength 5/5 Results & Data Results & Data Vital Signs (Past 12 Hours) Vital Signs Temp Pulse Resp BP Pulse Ox O2 Del Method 10/12/22 20:38 36.6 C 65 18 105/63 99 Room Air 10/12/22 15:38 36.6 C 67 16 123/67 96 Room Air PG Care Time/CCT Total # of Minutes Spent Total Time Spent with Patient: Total time spent is greater than 50% in coordination of care (as documented) at patient's floor/unit and/or counseling patient: Coding Level of Care Code 52818 SUB INP/OBS CARE 2/35MIN Diagnoses Right leg injury S89.91XA Anxiety F41.9 Parkinsonism G20 Depression F32.A Acid reflux K21.9 Hyperlipidemia E78.2 Hyperlipidemia type: mixed hyperlipidemia (6) Hyperlipidemia Hyperlipidemia type: mixed hyperlipidemia Qualified Code(s): E78.2 - Mixed hyperlipidemia
[2022-10-13 06:11] LABS: Hematocrit (blood only) 34.1 % (37.0-47.0); Hemoglobin 11.3 g/dl (12.0-16.0); Mean Corpuscular Hemoglobin 33.5 pg (25.0-34.0); Mean Corpuscular Hgb Conc 33.1 g/dL (32.0-36.0); Mean Corpuscular Volume 101.2 fL (80.0-100.0); Mean Platelet Volume 12.1 fL (9.4-12.4); Platelet Count 126 K/uL (130-400); RDW Coefficient of Variation 13.1 % (11.5-14.5); Red Blood Count 3.37 M/uL (4.20-5.40); White Blood Count 4.73 K/ul (4.8-10.8)
[2022-10-13 06:27] LABS: BUN Creatinine Ratio 29.8 (10-20); Calcium 9.1 mg/dl (8.6-10.3); Creatinine Clr Calc Pharmacy 32.2 ml/min; Est GFR (African American) 58.8 ml/min; Est GFR (Non-African American) 50.7 ml/min; Potassium 4.5 mmol/L (3.5-5.1)
[2022-10-13] MEDS: busPIRone 5 MG TAB PO SCH ×3 (08:03→19:38)
[2022-10-13] MEDS: METOPROLOL SUCC 25MG EXT REL TAB PO SCH (08:04)
[2022-10-13] MEDS: ATORVASTATIN 20 MG TAB PO SCH (08:04)
[2022-10-13] MEDS: ACETAMINOPHEN 500 MG TAB PO SCH ×3 (08:04→19:38)
[2022-10-13] MEDS: PANTOprazole 40 MG TAB PO SCH (08:04)
[2022-10-13] MEDS: MEMANTINE HCL 10 MG TAB PO SCH ×2 (08:04→19:38)
[2022-10-13] MEDS: LIDOCAINE 5% 1 PATCH TD SCH (08:05)
[2022-10-13] MEDS: CARBIDOPA/LEVODOPA 50/200MG EXT REL TAB PO SCH ×2 (08:05→16:47)
[2022-10-13] MEDS: POLYETHYLENE (MIRALAX) 17 GM PACK PO SCH (08:05)
[2022-10-13] MEDS: VENLAFAXINE HCL XR 37.5 MG CAPXR PO SCH (08:05)
[2022-10-13] MEDS: VENLAFAXINE HCL XR 75 MG CAPXR PO SCH (08:05)
[2022-10-13] MEDS: CARBIDOPA/LEVODOPA 25/100MG TAB PO SCH ×4 (08:06→19:38)
[2022-10-13] MEDS: ALPRAZolam 0.5 MG TABLET PO PRN ×3 (13:10→22:01)
[2022-10-13] MEDS: KETOROLAC TROMETHAMINE 15 MG/ML VIAL IV PRN (14:53)
[2022-10-13] MEDS ORDERED: LORazepam 2 MG/1 ML VIAL IV STA (17:38)
[2022-10-13] MEDS ORDERED: LORazepam 2 MG/1 ML VIAL ONE (17:43)
[2022-10-13] MEDS ORDERED: Heparin IV Adult Wt-Based Standard WITH Bolus Protocol IV STA (17:45)
[2022-10-13] MEDS ORDERED: HEPARIN SOD (PORCINE) 1000 UNIT/ML IV ONE (18:01)
[2022-10-13] MEDS ORDERED: HEPARIN SODIUM/DEXTROSE 25,000 UNITS/500 ML BAG IV SCH (18:15)
[2022-10-13] MEDS ORDERED: IOVERSOL 350 MG 125mL Prefilled Syringe IV ONE (18:40)
[2022-10-13] MEDS: traZODone HCL 50 MG TAB PO SCH (19:38)
[2022-10-13] MEDS: GABAPENTIN 800 MG TAB PO SCH (19:38)
--- NOTE | 2022-10-13 20:52 | CT Scan Report ---
CHEST CTA for PULMONARY ARTERIES CT DOSE: 279.23 mGy.cm HISTORY: Shortness of breath. Chest pain. TECHNIQUE: Multiaxial CT images of the chest were performed following the intravenous administration of contrast to evaluate the pulmonary arteries. 3D/Maximal intensity projection images were also obta ined. Sagittal and coronal reformations were also reviewed. A dose lowering technique was utilized a dhering to the principles of ALARA. COMPARISON STUDY: Chest CT 05/17/2022. FINDINGS: No evidence for an aortic dissection. There is normal caliber thoracic aorta. No filling de fects within the pulmonary arteries to suggest a pulmonary embolus. Limited views of the upper abdome n demonstrate a normal liver and visualized adrenal glands. There are few punctate calcified granulom as within the spleen. Partially calcified splenic artery aneurysms measuring up to 7 mm are noted. No rmal thyroid gland. Normal esophagus. The heart is mildly enlarged. No pleural or pericardial effusio ns. No mediastinal or hilar lymphadenopathy. Multiple healing/healed right-sided rib fractures. No ac christos fractures within the chest. No pneumothorax. The central airways are patent. Low lung volumes wit h chronic interstitial/fibrotic changes again noted. Mild dependent changes seen at the lung bases. M ild interlobular septal thickening at the lung bases could represent mild congestive change. No focal lung consolidations to suggest a pneumonia. IMPRESSION: 1. No evidence for a pulmonary embolus. 2. Low lung volumes with mild chronic interstitial/fibrotic changes again noted. 3. Mild interlobular septal thickening at the lung bases. This could represent mild congestive change . 4. Mild cardiomegaly. ACT 112: Negative or not required by law. Electronically signed by: Hiren Campbell M.D. 10/13/2022 8:50 PM
--- NOTE | 2022-10-13 22:48 | Hospitalist Progress Note ---
Date of Service October 13, 2022 Assessment & Plan (1) Right leg injury: Plan: 81yo female presenting from [facility] after an unwitnessed ground level fall. Patient with severe ongoing right hip and thigh pain. Unable to bear weight and ambulate in the ER. -PT/OT evaluation -Tylenol as needed -Patient may need acute rehab prior to returning home to [facility] Awaiting placement. Ordered ekg which was negative. Patient require a nonrebreather, likely due to tachypnea from her anxiety. Patient improved after 1 mg of lorazepam. Patient was weaned back to room air. Given her pain in her right calf, ordered a cta chest. (2) Anxiety: Plan: Chronic. Stable -Continue Buspirone 5mg p TID -Alprazolam 0.5mg po TID (3) Parkinsonism: Plan: Chronic. Stable -Continue Carbidopa/Levodopa -Continue Neurontin (4) Depression: Plan: Chronic. Stable -Continue Venlafaxine (5) Acid reflux: Plan: Chronic. Stable -Continue Protonix (6) Hyperlipidemia: Plan: Chronic. Stable -Atorvastatin 20mg po daily Plan dvt: lovenox Admission and Anticipated Discharge Date Admission Date: October 11, 2022 Subjective 81 yo female reports feeling anxious. Later in the night, patient had chest pain and anxiety. Review of Systems Review of Systems: All systems reviewed & are unremarkable except as noted in HPI & below Physical Exam Physical Exam: General: patient resting comfortably, NAD, non-toxic in appearance Skin: warm, dry, intact, no rashes or lesions HEENT: NC/AT, PERRL, EOMI, anicteric sclera, conjunctiva without injection, external ear normal to inspection and nontender, nares patent, moist mucus membranes, dentition intact, no oropharyngeal lesions, neck supple, trachea midline, no LAD, no thyromegaly, no JVD Heart: +S1/S2, regular, no m/r/g Lungs: equal air entry bilaterally, no rales/rhonchi/wheezes Abd: +BS, soft, NT/ND, no masses/organomegaly/ascites Ext: warm, 2+ pulses in UE/LE bilaterally, no clubbing/cyanosis or edema Neuro: nonfocal, speech intact, no facial droop, moving all extremities on command with equal strength 5/5 Results & Data Results & Data Vital Signs (Past 12 Hours) Vital Signs Temp Pulse Resp BP Pulse Ox O2 Del Method O2 Flow Rate 10/13/22 20:40 36.6 C 62 18 123/68 96 Room Air 10/13/22 19:08 69 98 Room Air 10/13/22 17:50 74 151/77 H 100 Oxymask 3 10/13/22 14:57 36.3 C L 61 16 122/63 98 Room Air PG Care Time/CCT Total # of Minutes Spent Total Time Spent with Patient: Total time spent is greater than 50% in coordination of care (as documented) at patient's floor/unit and/or counseling patient: Coding Level of Care Code 18441 SUB INP/OBS CARE 3/50MIN Diagnoses Right leg injury S89.91XA Anxiety F41.9 Parkinsonism G20 Depression F32.A Acid reflux K21.9 Hyperlipidemia E78.2 Hyperlipidemia type: mixed hyperlipidemia Time Spent (min) 50 (6) Hyperlipidemia Hyperlipidemia type: mixed hyperlipidemia Qualified Code(s): E78.2 - Mixed hyperlipidemia
[2022-10-13] MEDS ORDERED: ENOXAPARIN INJ 40 MG/0.4 ML SYR SQ SCH (22:50)
[2022-10-14] MEDS: busPIRone 5 MG TAB PO SCH ×3 (08:15→20:23)
[2022-10-14] MEDS: ATORVASTATIN 20 MG TAB PO SCH (08:15)
[2022-10-14] MEDS: VENLAFAXINE HCL XR 75 MG CAPXR PO SCH (08:15)
[2022-10-14] MEDS: MEMANTINE HCL 10 MG TAB PO SCH ×2 (08:15→20:22)
[2022-10-14] MEDS: CARBIDOPA/LEVODOPA 25/100MG TAB PO SCH ×4 (08:15→20:24)
[2022-10-14] MEDS: CARBIDOPA/LEVODOPA 50/200MG EXT REL TAB PO SCH ×2 (08:15→17:06)
[2022-10-14] MEDS: METOPROLOL SUCC 25MG EXT REL TAB PO SCH (08:15)
[2022-10-14] MEDS: POLYETHYLENE (MIRALAX) 17 GM PACK PO SCH (08:15)
[2022-10-14] MEDS: PANTOprazole 40 MG TAB PO SCH (08:15)
[2022-10-14] MEDS: ACETAMINOPHEN 500 MG TAB PO SCH ×3 (08:15→20:22)
[2022-10-14] MEDS: LIDOCAINE 5% 1 PATCH TD SCH (08:16)
[2022-10-14] MEDS: VENLAFAXINE HCL XR 37.5 MG CAPXR PO SCH (08:16)
[2022-10-14] MEDS: ALPRAZolam 0.5 MG TABLET PO PRN ×3 (09:35→22:16)
--- NOTE | 2022-10-14 11:25 | Electrocardiogram Report ---
Test Reason : Blood Pressure : / mmHG Vent. Rate : 067 BPM Atrial Rate : 067 BPM P-R Int : 124 ms QRS Dur : 082 ms QT Int : 396 ms P-R-T Axes : 064 044 -39 degrees QTc Int : 418 ms Normal sinus rhythm Septal infarct (cited on or before 13-OCT-2022) Abnormal ECG When compared with ECG of 10-OCT-2022 22:47, No significant change was found Confirmed by Saad Nowak ([id number]) on 10/14/2022 11:25:05 AM Referred By: REFERRED SELF Confirmed By:Saad Nowak
--- NOTE | 2022-10-14 13:59 | Hospitalist Progress Note ---
Date of Service October 14, 2022 Assessment & Plan (1) Right leg injury: Plan: 81yo female presenting from [facility] after an unwitnessed ground level fall. Patient with severe ongoing right hip and thigh pain. Unable to bear weight and ambulate in the ER. -PT/OT evaluation -Tylenol as needed -Patient may need acute rehab prior to returning home to [facility] Awaiting placement. Patient remains on room air. Negative Chest CT for pulmonary emboli (2) Anxiety: Plan: Chronic. Stable -Continue Buspirone 5mg p TID -Alprazolam 0.5mg po TID (3) Parkinsonism: Plan: Chronic. Stable -Continue Carbidopa/Levodopa -Continue Neurontin (4) Depression: Plan: Chronic. Stable -Continue Venlafaxine (5) Acid reflux: Plan: Chronic. Stable -Continue Protonix (6) Hyperlipidemia: Plan: Chronic. Stable -Atorvastatin 20mg po daily Plan dvt: heparin Admission and Anticipated Discharge Date Admission Date: October 11, 2022 Subjective Patient reports no new symptoms. Patient denies any chest pain, nausea, vomiting. Review of Systems Review of Systems: All systems reviewed & are unremarkable except as noted in HPI & below Physical Exam Physical Exam: General: patient resting comfortably, NAD, non-toxic in appearance Skin: warm, dry, intact, no rashes or lesions HEENT: NC/AT, PERRL, EOMI, anicteric sclera, conjunctiva without injection, external ear normal to inspection and nontender, nares patent, moist mucus membranes, dentition intact, no oropharyngeal lesions, neck supple, trachea midline, no LAD, no thyromegaly, no JVD Heart: +S1/S2, regular, no m/r/g Lungs: equal air entry bilaterally, no rales/rhonchi/wheezes Abd: +BS, soft, NT/ND, no masses/organomegaly/ascites Ext: warm, 2+ pulses in UE/LE bilaterally, no clubbing/cyanosis or edema Neuro: nonfocal, speech intact, no facial droop, moving all extremities on command with equal strength 5/5 Results & Data Results & Data Vital Signs (Past 12 Hours) Vital Signs Temp Pulse Pulse Resp BP Pulse Ox O2 Del Method 10/14/22 08:29 80 107/66 99 Room Air 10/14/22 07:17 36.6 C 60 16 113/69 99 Room Air PG Care Time/CCT Total # of Minutes Spent Total Time Spent with Patient: Total time spent is greater than 50% in coordination of care (as documented) at patient's floor/unit and/or counseling patient: Coding Level of Care Code 31775 SUB INP/OBS CARE 2/35MIN Diagnoses Right leg injury S89.91XA Anxiety F41.9 Parkinsonism G20 Depression F32.A Acid reflux K21.9 Hyperlipidemia E78.2 Hyperlipidemia type: mixed hyperlipidemia (6) Hyperlipidemia Hyperlipidemia type: mixed hyperlipidemia Qualified Code(s): E78.2 - Mixed hyperlipidemia
[2022-10-14] MEDS: ONDANSETRON INJ 2 MG/ML 2 ML VIAL IV PRN (16:59)
[2022-10-14] MEDS: GABAPENTIN 800 MG TAB PO SCH (20:21)
[2022-10-14] MEDS: traZODone HCL 50 MG TAB PO SCH (20:23)
[2022-10-14] MEDS: HEPARIN SOD 5,000 UNIT/0.5 ML VIAL SQ SCH (20:24)
[2022-10-15] MEDS: LIDOCAINE 5% 1 PATCH TD SCH (07:45)
[2022-10-15] MEDS: CARBIDOPA/LEVODOPA 50/200MG EXT REL TAB PO SCH (08:12)
[2022-10-15] MEDS: CARBIDOPA/LEVODOPA 25/100MG TAB PO SCH ×2 (08:13→13:10)
[2022-10-15] MEDS: ACETAMINOPHEN 500 MG TAB PO SCH ×2 (08:15→13:10)
[2022-10-15] MEDS: ATORVASTATIN 20 MG TAB PO SCH (08:16)
[2022-10-15] MEDS: busPIRone 5 MG TAB PO SCH ×2 (08:16→13:10)
[2022-10-15] MEDS: METOPROLOL SUCC 25MG EXT REL TAB PO SCH (08:18)
[2022-10-15] MEDS: MEMANTINE HCL 10 MG TAB PO SCH (08:18)
[2022-10-15] MEDS: PANTOprazole 40 MG TAB PO SCH (08:20)
[2022-10-15] MEDS: VENLAFAXINE HCL XR 75 MG CAPXR PO SCH (08:20)
[2022-10-15] MEDS: VENLAFAXINE HCL XR 37.5 MG CAPXR PO SCH (08:20)
[2022-10-15] MEDS: POLYETHYLENE (MIRALAX) 17 GM PACK PO SCH (08:23)
[2022-10-15] MEDS: HEPARIN SOD 5,000 UNIT/0.5 ML VIAL SQ SCH (10:47)
[2022-10-15] MEDS: ALPRAZolam 0.5 MG TABLET PO PRN (13:10)
--- NOTE | 2022-10-15 13:59 | Discharge Summary ---
Date of Service October 15, 2022 Admission HPI Per Admitting Provider Aranza Hurst is an 81yo female presenting from [facility] after an unwitnessed fall. She reports that she was ambulating with her walker and she lost her balance and fell onto her right hip. She is complaining of pain in the hip and femur. No additional complaints - she denies fever, chills, cough, SOB, chest pain, palpitations or dizziness. In the ER she is afebrile, HD stable. Patient unable to ambulate due to pain - failed ambulatory trial in the ER. ER Course: Tylenol Principal Diagnosis right leg injury Discharge Exam General: patient resting comfortably, NAD, non-toxic in appearance Skin: warm, dry, intact, no rashes or lesions HEENT: NC/AT, PERRL, EOMI Heart: +S1/S2, regular, no m/r/g Lungs: equal air entry bilaterally, no rales/rhonchi/wheezes Abd: +BS, soft, NT/ND, no masses/organomegaly/ascites Ext: warm, 2+ pulses in UE/LE bilaterally, no clubbing/cyanosis or edema Neuro: nonfocal, speech intact, no facial droop, moving all extremities on command with equal strength 5/5 Discharge Data Allergies Allergy/AdvReac Type Severity Reaction Status Date / Time Penicillins Allergy Severe RASH Verified 10/10/22 22:56 gluten Allergy Intermediate GI SYMPTOMS Verified 10/10/22 22:56 lactose Allergy Intermediate GI SYMPTOMS Verified 10/10/22 22:56 Sulfa (Sulfonamide Allergy Intermediate RASH Verified 10/10/22 22:56 Antibiotics) sulfamethoxazole Allergy Intermediate RASH Verified 10/10/22 22:56 doxycycline Allergy Unknown ON Verified 10/10/22 22:56 [facility] L[facility] ropinirole Allergy Unknown ON Verified 10/10/22 22:56 [employer] MED LIST Consultations 10/11/22 02:52 ED Decision to Admit Stat Ordered Studies 10/11/22 00:16 CT hip RT wo con Stat 10/13/22 18:06 CT angio chest PE protocol Stat Hospital Course (1) Right leg injury: 81yo female presenting from [facility] senior care after an unwitnessed ground level fall. Patient with severe ongoing right hip and thigh pain. Unable to bear weight and ambulate in the ER. -PT/OT evaluation: recommend SNF -no fractures on imaging. -Tylenol as needed -Patient may need acute rehab prior to returning home to [facility] Patient will be discharged to residential facility to obtain rehab Patient remains on room air. Negative Chest CT for pulmonary emboli (2) Anxiety: Chronic. Stable -Continue Buspirone 5mg p TID -Alprazolam 0.5mg po TID (3) Parkinsonism: Chronic. Stable -Continue Carbidopa/Levodopa -Continue Neurontin (4) Depression: Chronic. Stable -Continue Venlafaxine (5) Acid reflux: Chronic. Stable -Continue Protonix (6) Hyperlipidemia: Chronic. Stable -Atorvastatin 20mg po daily Plan dvt: heparin Total Time Total Time Spent Total Time Spent (In Minutes): 32 Discharge Plan Discharge Items Patient Disposition: Transfer Half-Way Fac Reason For Visit: FALL, RIGHT HIP PAIN Discharge Diagnosis: right hip pain Condition on Discharge: Good Activity: Resume your previous activity Non-emergency contact: Primary Care Provider Call non-emergency contact if: you have any medication questions Follow-up/Referrals: Micky Nunez CRNP [Primary Care Provider] - Diet: Regular Addtl Attending Provider Instructions: You have been hospitalized for an acute medical problem. During your stay at [facility], we have made an effort to correct the problem that brought you to the hospital while keeping you as comfortable as possible. Medications were used to bring your condition under control and your discharge instructions will include directions for any medications you should take after leaving the hospital. Please make sure you see your Primary Care Provider as part of your follow up plan. recommend followup with PCP in 2 weeks Pending Studies at Discharge: No Stand-Alone Forms: My [facility] [place], Smoking Cessation Skilled Items Patient informed of condition?: No Discharge Level of Care: Skilled Communicable Disease: No Discharge Prognosis: Stable Lines: None Urinary Catheter: No Medications and DC Order Prescriptions: New lidocaine 5 % Adhesive Patch,Medicated 1 patch transdermal QAM Qty: 14 0RF Continued atorvastatin 20 mg tablet 20 mg PO QAM Qty: 90 3RF metoprolol succinate 25 mg tablet extended release 24 hr 25 mg PO QAM Qty: 90 3RF venlafaxine 37.5 mg capsule,extended release 24hr 37.5 mg PO QAM Qty: 90 1RF Rx Instructions: TOTAL DOSE 112.5 MG--TAKES WITH 75 MG CAP. polyethylene glycol 3350 [Miralax] 17 gram powder in packet 17 g PO DAILY Qty: 30 3RF alprazolam 0.5 mg tablet 0.5 mg PO TID PRN (Reason: anxiety) 30 Days Qty: 90 1RF buspirone 10 mg tablet 5 mg PO TID Qty: 90 2RF carbidopa-levodopa 50-200 mg tablet extended release 1 tab PO BID Rx Instructions: TAKES 0900 & 1700 Ensure Liquid 1 ea PO DAILY Rx Instructions: liquid vanilla acetaminophen [Mapap Arthritis Pain] 650 mg tablet extended release 1,300 mg PO TID carbidopa-levodopa 25-100 mg tablet 2 tab PO QID Rx Instructions: 0900, 1300, 1700, & 2000 memantine 10 mg tablet 10 mg PO BID 30 Days Qty: 60 5RF trazodone 50 mg tablet 50 mg PO HS Rx Instructions: TAKE 1 TABLET AT BEDTIME clotrimazole 10 mg Lida 10 mg PO 5XD PRN (Reason: THRUSH SYMPTOMS) acetaminophen [Tylenol] 325 mg Tablet 650 mg PO Q4H MDD 3 GRAMS/24 HOURS PRN (Reason: PAIN/FEVER) venlafaxine 75 mg capsule,extended release 24hr 75 mg PO QAM Rx Instructions: TOTAL DOSE 112.5 MG--TAKES WITH 37.5 MG CAP. gabapentin 800 mg tablet 800 mg PO HS Rx Instructions: TAKE 1 TABLET EVERY DAY cyanocobalamin (vitamin B-12) 1,000 mcg/mL solution 1,000 mcg IM MONTHLY Rx Instructions: of every month cyanocobalamin (vitamin B-12) 1,000 mcg/mL solution 1,000 mcg IM .TWICE MONTHLY ondansetron 4 mg tablet,disintegrating 4 mg PO Q8H PRN (Reason: Nausea) pantoprazole 40 mg tablet,delayed release (DR/EC) 40 mg PO QAM mupirocin calcium 2 % cream 1 applic TOPICAL DAILY Rx Instructions: apply daily to ulcer on 4th toe on right foot. offloading corn pad wit hole on ulcer Discharge Orders: Discharge Order (Routine); Ordered 10/15/22 Ordered By: Oscar Kincaid Admission Data Admit Date/Time: 10/11/22 03:17 Attending Provider: Oscar Kincaid Admit Provider: Soco Das Primary Care Provider: Micky Nunez Other Providers: Soco Das ; Rocael Whittaker Other Interventions: Discharge Summary Assessment (RN) Last Done: 10/15/22 13:42 Coding Level of Care Code 98520 INP/OBS DISCH >30 MIN Diagnoses Right leg injury S89.91XA Anxiety F41.9 Parkinsonism G20 Depression F32.A Acid reflux K21.9 Hyperlipidemia E78.2 Hyperlipidemia type: mixed hyperlipidemia
== END 2022-10-15 14:36 | DRG 556 ==
LOC: ED 21:20 → 3E 10-11 03:17 → SUATTDRO 10-11 03:17 → 3E 10-11 04:59